=== PATIENT | female | born 1990 | race Caucasian/White ===

== ENCOUNTER 2017-08-11 06:15 | Inpatient (IN) | payer OTHER ==
[2017-08-09 18:00] VITALS: BMI 38.3
[2017-08-11 06:40] LABS: MCH 30.1 pg (25.7-33.7); MCHC 34.1 g/dl (32.0-36.0); MEAN CELL VOLUME 88.3 fl (80-96); PLATELET COUNT 266 K/MM3 (134-434); RDW 12.7 % (11.6-15.6); WHITE BLOOD COUNT 6.6 K/mm3 (4.0-10.0)
[2017-08-11 07:02] LABS: ANION GAP 6 (8-16); CALCIUM 7.9 mg/dL (8.5-10.1); CO2 27 mmol/L (21-32); CREATININE 0.8 mg/dL (0.55-1.02); GLUCOSE,RANDOM 109 mg/dL (74-106)
[2017-08-11] MEDS ORDERED: ePHEDrine SULFATE 50 MG/1 ML AMPULE ONE (07:14)
[2017-08-11] MEDS ORDERED: fentaNYL CITRATE 250 MCG/5 ML VIAL ONE (07:14)
[2017-08-11] MEDS ORDERED: SUCCINYLCHOLINE CHLORIDE 200 MG/10 ML VIAL ONE (07:15)
[2017-08-11] MEDS ORDERED: PROPOFOL 20 ML ONE ×4 (07:15)
[2017-08-11] MEDS ORDERED: ROCURONIUM BROMIDE 50 MG/5 ML VIAL ONE ×2 (07:15)
[2017-08-11] MEDS ORDERED: MIDAZOLAM HCL 2 MG/2 ML SINGLE DOSE VIAL ONE (07:15)
[2017-08-11 07:26] LABS: INR 1.23 (0.82-1.09); PROTHROMBIN TIME (PATIENT) 13.9 SEC (9.98-11.88)
[2017-08-11 07:29] LABS: ACTIVATED PTT 29.8 SECONDS (26.9-34.4)
--- NOTE | 2017-08-11 08:26 | HP ---
History & Physical Update - History History: No Change - Physical Physical: No Change - Assessment Assessment: No Change - Plan Plan: No Change Currently as noted:: Laparoscopic vertical sleeve gastrectomy for morbid obesity
[2017-08-11] MEDS ORDERED: ceFAZolin SODIUM 1 GM VIAL IVPB ONE (08:45)
[2017-08-11] MEDS ORDERED: BUPIVACAINE HCL/PF 0.5% (5MG/ML) 10 ML VIAL IJ ONE (09:50)
[2017-08-11] MEDS: HYDROmorphone HCL CARPU-JECT 1 MG/1 ML DISP.SYRIN IVPUSH PRN ×4 (10:03→12:15)
[2017-08-11] MEDS ORDERED: HYDROmorphone HCL CARPU-JECT 1 MG/1 ML DISP.SYRIN IVPB PRN (10:05)
--- NOTE | 2017-08-11 10:05 | OP ---
Operative Note - Note: Operative Date: 08/11/17 Pre-Operative Diagnosis: Morbid obesity Operation: Laparoscopic vertical sleeve gastrectomy, wedge liver biopsy, EGD Post-Operative Diagnosis: Other (Morbid obesity, hepatomegaly) Surgeon: Prince Walker Financial Representative: Inocencio Perez Anesthesia: General Specimens Removed: Greater curvature of stomach, left lobe wedge liver biopsy Estimated Blood Loss (mls): 30 Drains & Tubes with Location: 36 Fr Bougie Operative Report Dictated: Yes
[2017-08-11] MEDS ORDERED: HYDROmorphone HCL CARPU-JECT 2 MG/1 ML DISP.SYRIN ONE ×2 (10:17→11:21)
[2017-08-11] MEDS ORDERED: ACETAMINOPHEN INJECTION 100 ML IVPB ONE (10:18)
[2017-08-11] MEDS: METOCLOPRAMIDE HCL INJECTION 10 MG/2 ML VIAL IVPUSH SCH ×4 (10:25→21:27)
--- NOTE | 2017-08-11 10:42 | SPEC ---
DATE OF OPERATION: 08/11/2017 SURGEON: Prince Walker MD MANAGER BUSINESS PROCESS: Inocencio Perez MD PREOPERATIVE DIAGNOSIS: Morbid obesity. POSTOPERATIVE DIAGNOSES: Morbid obesity, hepatomegaly. PROCEDURE: Laparoscopic vertical sleeve gastrectomy, laparoscopic wedge liver biopsy of the liver, and upper endoscopy/esophagogastroduodenoscopy. SPECIMEN: Greater curvature of the stomach and left lobe wedge liver biopsy. ESTIMATED BLOOD LOSS: 30 mL DRAINS: None. BOUGIE: 36-Divehi bougie. ANESTHESIA: GET. REASON FOR PROCEDURE: This is a 27-year-old female who presented to the office for weight loss options. After describing different options, she decided to proceed with a laparoscopic, possible open vertical sleeve gastrectomy. RISKS AND BENEFITS: After describing the different options for weight loss management, the patient decided to proceed with a laparoscopic, possible open vertical sleeve gastrectomy. The patient was seen by the respective subspecialties and cleared for surgery. The risks and benefits of the procedure were explained. These included bleeding, infection, hernia, [place], DVT, PE, injury to surrounding structures including the liver, colon, bowel, spleen, esophagus, vessel injury, nerve injury, weight regain, gastric leak, staple line leak, sleeve leak, obstruction, vitamin deficiency, hair loss and as some of the possible complications. The patient understood and signed informed consent. DESCRIPTION OF PROCEDURE: The patient was placed supine on the operating room table. The patient underwent general endotracheal intubation. A Bueno catheter was inserted. The arms were brought out at 90 degrees and secured. A footboard was placed and the legs were secured laterally with padding. The abdomen was prepped and draped in the usual sterile fashion. A timeout was performed. An incision was made in the left upper quadrant and a Veress needle inserted. Pneumoperitoneum was established. Subsequently, the Veress needle was removed and a 12-mm trocar was placed. The laparoscopic camera was then inserted and inspection of the abdominal cavity was performed. An incision was then made in the supraumbilical area and a 15-mm trocar was placed under direct visualization. A 5-mm trocar was then placed in the right upper quadrant and a 5-mm trocar was placed below the left subcostal margin. A stab wound was made in the subxiphoid area and a Rafia clamp inserted and removed to dilate the tract. A Jovanna liver retractor was inserted. The post was secured at the bedside by the nursing staff. The patient was placed in steep reverse Trendelenburg position and the Jovanna liver retractor was used to secure the liver towards the anterior abdominal wall. The pylorus was identified and 6 cm proximal to it, the lesser sac was entered using the LigaSure device. All lateral attachments to the greater curvature of the stomach, including the short gastric vessels, were ligated using the LigaSure device toward the gastrosplenic and gastrophrenic ligaments. Once this was done in its entirety, it was confirmed that all tubes within the nasal or oropharyngeal cavity, including a temperature probe, was removed by Anesthesia. The bougie was then inserted by Anesthesia. Transection of the stomach was then begun staying adjacent to the bougie but away from the angularis. Transection of the stomach was performed near the portion of the stomach where the lesser sac was entered. Two laparoscopic Endo-GOSIA black anila were used at this location. Laparoscopic Endo GOSIA purple staple loads were then used for the remainder of the transection until the greater curvature of the stomach was fully transected. This was done staying close to the bougie. Care was taken to stay away from the angle of His cephalad. The staple line was then inspected. Hemostasis was identified. A leak test was then performed. It was clamped distally to the staple line. Irrigation solution was placed in the left upper quadrant and air was insufflated by Anesthesia into the sleeve. No leaks were identified. No obstruction was identified. This was done through the entirety of the staple line. At this point, the irrigation solution was suctioned and again, hemostasis was noted. A wedge liver biopsy was then performed. The left lobe of the liver was identified and a portion of the edge was grasped. Using electrocautery, a wedge of the liver was excised. This was removed and sent off the field as specimen. Hemostasis at the site of the wedge liver biopsy was attained using electrocautery. The 15-mm supraumbilical trocar was then removed and the greater curvature specimen removed from the site using a sponge stick tang. The specimen was inspected and a Veress needle inserted. The specimen insufflated adequately and no leak was identified. The staple line was noted to be intact. A Chris-Linnette device was then used to temporarily close the fascia with a 0 Vicryl suture at the site. The 15-mm trocar was then reinserted and the 12-mm trocar in the left upper quadrant was removed. The fascia at this site was then closed using the Chris-Linnette device with a 0 Vicryl suture. Again, hemostasis was noted. The Jovanna liver retractor was then removed under direct visualization. Pneumoperitoneum was desufflated and the fascial sutures were secured. Hemostasis was noted at all incision sites and Marcaine was injected at all incision sites. All incision sites were closed using 4-0 Biosyn. Sterile dressings were applied. The patient tolerated the procedure well and was transferred to the recovery room in stable condition with the Bueno catheter intact. The patient was transferred to telemetry for further monitoring. In addition, during the case, an upper endoscopy was performed to further evaluate for leak and/or obstruction. The endoscope was inserted, and the entirety of the esophagus, GE junction, and gastric sleeve pouch was inspected. No leak or obstruction was noted. The stomach was suctioned and the endoscope removed fully intact. The patient tolerated the procedure well, transferred to recovery room in stable condition. Wilmer [id number]
[2017-08-11] MEDS: ACETAMINOPHEN 1000 MG/100 ML VIAL (NON FORMULARY) IVPB SCH ×3 (10:45→22:57)
[2017-08-11] MEDS ORDERED: PROMETHAZINE HCL 25 MG/1 ML VIAL ONE (10:58)
[2017-08-11 11:18] LABS: MCHC 32.8 g/dl (32.0-36.0); MEAN CELL VOLUME 88.6 fl (80-96); MEAN PLT VOLUME 8.8 fl (7.5-11.1); PLATELET COUNT 230 K/MM3 (134-434); RDW 12.6 % (11.6-15.6); WHITE BLOOD COUNT 11.6 K/mm3 (4.0-10.0)
[2017-08-11] MEDS ORDERED: ONDANSETRON 4 MG/2 ML VIAL IVPUSH PRN (11:27)
[2017-08-11] MEDS ORDERED: PROMETHAZINE HCL 25 MG/1 ML VIAL IVPUSH PRN (11:27)
[2017-08-11] MEDS: ONDANSETRON 4 MG/2 ML VIAL IVPUSH SCH ×4 (11:30→21:27)
[2017-08-11 11:56] LABS: ALBUMIN 3.8 g/dl (3.4-5.0); ANION GAP 6 (8-16); CALCIUM 7.9 mg/dL (8.5-10.1); CO2 24 mmol/L (21-32); CREATININE 0.8 mg/dL (0.55-1.02); GLUCOSE,RANDOM 170 mg/dL (74-106); SGOT/AST 28 U/L (15-37); SGPT/ALT 41 U/L (12-78)
[2017-08-11 11:57] LABS: ALK PHOS 56 U/L (45-117); BILIRUBIN,TOTAL 0.8 mg/dL (0.2-1.0); TOT PROT 6.9 g/dl (6.4-8.2)
[2017-08-11] MEDS: SODIUM CHLORIDE 1,000 ML IV SCH ×2 (13:00→15:16)
[2017-08-11] MEDS ORDERED: LORazepam 2 MG/ML SDV VIAL IVPUSH PRN (14:33)
[2017-08-11] MEDS: HYDROmorphone HCL CARPU-JECT 2 MG/1 ML DISP.SYRIN IVPB PRN (16:12)
[2017-08-11] MEDS: LACTATED RINGERS SOLUTION 1,000 ML IV SCH (16:39)
[2017-08-11] MEDS ORDERED: PT OWN MED DRAWER 7, Y5N ONE (21:22)
[2017-08-11] MEDS: ENOXAPARIN NA (PORCINE) 40 MG/0.4 ML DISP.SYRIN SQ SCH (21:27)
[2017-08-11] MEDS: FAMOTIDINE 20 MG/50 ML IVPB 20 MG/50 ML MG IVPB SCH (21:27)
[2017-08-12] MEDS: ONDANSETRON 4 MG/2 ML VIAL IVPUSH SCH ×6 (02:15→21:22)
[2017-08-12] MEDS: HYDROmorphone HCL CARPU-JECT 2 MG/1 ML DISP.SYRIN IVPB PRN ×2 (02:15→06:43)
[2017-08-12] MEDS: METOCLOPRAMIDE HCL INJECTION 10 MG/2 ML VIAL IVPUSH SCH ×4 (02:15→20:36)
[2017-08-12] MEDS: SODIUM CHLORIDE 1,000 ML IV SCH ×3 (02:23→09:25)
[2017-08-12] MEDS: ACETAMINOPHEN 1000 MG/100 ML VIAL (NON FORMULARY) IVPB SCH (05:06)
[2017-08-12 07:11] LABS: MCH 29.4 pg (25.7-33.7); MCHC 33.1 g/dl (32.0-36.0); MEAN CELL VOLUME 88.8 fl (80-96); MEAN PLT VOLUME 8.1 fl (7.5-11.1); PLATELET COUNT 220 K/MM3 (134-434); RDW 12.5 % (11.6-15.6); WHITE BLOOD COUNT 11.2 K/mm3 (4.0-10.0)
[2017-08-12 07:45] LABS: ANION GAP 4 (8-16); CALCIUM 7.3 mg/dL (8.5-10.1); CO2 27 mmol/L (21-32)
[2017-08-12 07:51] LABS: ALK PHOS 49 U/L (45-117); BILIRUBIN,TOTAL 0.7 mg/dL (0.2-1.0); CREATININE 0.6 mg/dL (0.55-1.02); GLUCOSE,RANDOM 91 mg/dL (74-106); SGOT/AST 30 U/L (15-37); SGPT/ALT 46 U/L (12-78); TOT PROT 5.9 g/dl (6.4-8.2)
[2017-08-12] MEDS ORDERED: ACETAMINOPHEN 325 MG TABLET (FP) PO PRN (08:58)
--- NOTE | 2017-08-12 09:12 | PN ---
Progress Note (short form) - Note Progress Note: POD 1 Pain controlled No nausea Vital Signs Period Temp Pulse Resp BP Sys/Nguyễn Pulse Ox Last 24 Hr 97.7 F-98.5 F 93-116 10-20 117-161/70-103 98-100 Abd soft CBC, BMP 08/12/17 07:00 08/12/17 07:00 UGI: no leak/obstruction Clears OOB
--- NOTE | 2017-08-12 09:13 | DS ---
Physical Examination Vital Signs: Vital Signs Temperature 98.5 F 08/12/17 07:01 Pulse Rate 97 H 08/12/17 07:01 Respiratory Rate 20 08/12/17 07:01 Blood Pressure 133/78 08/12/17 07:01 O2 Sat by Pulse Oximetry (%) 100 08/11/17 15:10 Constitutional: Yes: Calm HENT: Yes: WNL Neck: Yes: Supple Cardiovascular: Yes: Regular Rate and Rhythm Respiratory: Yes: CTA Bilaterally Gastrointestinal: Yes: Soft Wound/Incision: Yes: Dressing Dry and Intact Neurological: Yes: Alert, Oriented Labs: CBC, BMP 08/12/17 07:00 08/12/17 07:00 Discharge Summary Reason For Visit: MORBID OBESITY Current Active Problems Hepatomegaly (Acute) Morbid (severe) obesity due to excess calories (Acute) Procedures: Principal: Vertcal sleeve gastrectomy, wedge liver biopsy, EGD Condition: Stable - Instructions Diet, Activity, Other Instructions: [address] [place] [address] Prince Walker M.D. [address] [place] [address], [address] [facility] [address] [facility] [place] [address] Robotic, Bariatric and General Surgery Postoperative Instructions for Bariatric Surgery Activity: Resume normal everyday activity as tolerated. You may walk and climb stairs without any limitation. We encourage you to walk as often as you can Do not lift anything more than 10 pounds for 8 weeks. At that time, you can return to full activity, including the gym, without limitation. Do not drive a motor vehicle while taking prescribes narcotic pain medication. Wound Care: If you have a bandage in place, leave it on for 3 days. At that time you may remove the outer bandage. If there are strips of tape on the skin after removing the outer bandage, leave them in place. They will fall off by themselves. Do not remove them. If there is clear glue on the skin after removing the outer bandage, leave it in place. Do not pick at it or peel it off. You may shower after taking the outer bandage off, 3 days after your surgery. If incisions become red, warm or open, please call the office. Diet: Continue a sugar-free, non-carbonated Clear liquid diet three times a day for the first week-Stage I diet. In addition, you should drink 8 ounces of water every hour. When drinking, sips should be slow and steady, not large and quick. After the first week, call the office to be advanced to the next dietary stage. Do not advance stages until instructed. Your diet will be advanced over the phone each week. Medications/Pain Management: You may resume previous medications unless told otherwise. The pills may be swallowed whole or broken if scored. You may take the prescribed narcotic pain medication as needed. If the narcotic medication is not needed for pain control, you may take Tylenol. Avoid all other pain medications including Advil, Ibuprofen, Motrin, Aspirin, Naprosyn, Aleve, Celebrex. You will receive Pepcid. Please take this twice a day as prescribed. Dizziness,Headaches/Gas Pain: Make sure you are getting enough fluids daily. Patients on diuretics or water pills may need medication adjusted. Some fluids such as broth or Gatorade may help. Gas pains are common in the first few weeks after surgery. At times they can be worse than surgical pain. Walking can help. You can also use Mylanta, Maalox, or Gas-X. Vomiting/Nausea: This may occur if you eat too fast, don't chew, or eat too much. Go back to fluids. If the vomiting or nausea persists, call the office. Constipation/Diarrhea: You may experience a change in bowel habits. Many things affect this, including a decrease in food intake, not enough fluid and taking pain medication. Some people experience diarrhea after the barium swallow in x-ray. If either persist, call the office. Follow up: Call the office at [phone] for an appointment 2 weeks after your surgical procedure. Disposition: HOME - Home Medications Comprehensive Discharge Medication List: Ambulatory Orders Metoprolol Tartrate [Lopressor -] 50 mg PO DAILY 06/23/16 Cyclobenzaprine HCl [Flexeril -] 10 mg PO BID 08/09/17 Losartan Potassium [Cozaar -] 50 mg PO DAILY 08/09/17 Famotidine [Pepcid] 20 mg PO BID #60 tablet 08/11/17 Oxycodone HCl/Acetaminophen [Percocet 5-325 mg Tablet] 1 - 2 tab PO Q6H #28 tab MDD 4 08/11/17
[2017-08-12] MEDS: ENOXAPARIN NA (PORCINE) 40 MG/0.4 ML DISP.SYRIN SQ SCH ×2 (09:24→21:22)
[2017-08-12] MEDS: FAMOTIDINE 20 MG/50 ML IVPB 20 MG/50 ML MG IVPB SCH ×2 (09:25→21:22)
--- NOTE | 2017-08-12 10:58 | PN ---
Progress Note, Physician Chief Complaint: Pt. pain controlled, no GA complaints. - Current Medication List Current Medications: Active Medications Acetaminophen (Tylenol -) 325 mg PO Q4H PRN PRN Reason: FEVER OR PAIN Enoxaparin Sodium (Lovenox -) 40 mg SQ BID DESTINY Last Admin: 08/12/17 09:24 Dose: 40 mg Hydromorphone HCl (Dilaudid Injection -) 1 mg IVPB Q3H PRN PRN Reason: PAIN Last Admin: 08/12/17 06:43 Dose: 1 mg Famotidine/Sodium Chloride (Pepcid 20 Mg Premixed Ivpb -) 20 mg in 50 mls @ 100 mls/hr IVPB BID DESTINY Last Admin: 08/12/17 09:25 Dose: 100 mls/hr Sodium Chloride (Normal Saline -) 1,000 mls @ 150 mls/hr IV ASDIR DESTINY Last Admin: 08/12/17 05:10 Dose: 150 mls/hr Lactated Ringer's (Lactated Ringers Solution) 1,000 mls @ 125 mls/hr IV ASDIR [facility] Last Admin: 08/11/17 16:39 Dose: Not Given Sodium Chloride (Normal Saline -) 1,000 mls @ 75 mls/hr IV ASDIR [facility] Last Admin: 08/12/17 09:25 Dose: 75 mls/hr Lorazepam (Ativan Injection -) 0.5 mg IVPUSH Q30M PRN Last Admin: 08/11/17 12:48 Dose: 0.5 mg Metoclopramide HCl (Reglan Injection -) 10 mg IVPUSH Q6H-IV DESTINY Last Admin: 08/12/17 09:24 Dose: 10 mg Ondansetron HCl (Zofran Injection) 4 mg IVPUSH Q4H-IV DESTINY Last Admin: 08/12/17 09:24 Dose: 4 mg Ondansetron HCl (Zofran Injection) 4 mg IVPUSH Q6H PRN PRN Reason: NAUSEA AND/OR VOMITING Oxycodone HCl (Roxicodone -) 5 mg PO Q4H PRN PRN Reason: PAIN Promethazine HCl (Phenergan Injection -) 12.5 mg IVPUSH Q6H PRN PRN Reason: NAUSEA-FOR RESCUE AFTER 15 MIN Last Admin: 08/11/17 10:40 Dose: 12.5 mg - Objective Vital Signs: Vital Signs Temperature 98.5 F 08/12/17 07:01 Pulse Rate 97 H 08/12/17 07:01 Respiratory Rate 20 08/12/17 07:01 Blood Pressure 133/78 08/12/17 07:01 O2 Sat by Pulse Oximetry (%) 100 08/11/17 15:10 Constitutional: Yes: Well Nourished, No Distress, Calm Musculoskeletal: Yes: WNL Neurological: Yes: WNL, Alert, Oriented Labs: CBC, BMP 08/12/17 07:00 08/12/17 07:00 INR, PTT INR 1.23 (0.82-1.09) H 08/11/17 06:29 Assessment/Plan POD#1 s/p laparoscopic gastric sleeve under GA. Doing well. D/C from anesthesia care.
[2017-08-12] MEDS: oxyCODONE HCL 5 MG TABLET PO PRN ×2 (14:18→20:34)
[2017-08-12] MEDS: LACTATED RINGERS SOLUTION 1,000 ML IV SCH (14:19)
--- NOTE | 2017-08-12 15:25 | PATH ---
Surgical Pathology Report Patient Name: LINDSEY BLANCAS [facility]. Rec. #: [id number] /Age/Gender: 1990 (Age: 27) / F Account: [id number] Location: 4 SO PEDS/ADOL Taken: 08/11/2017 Received: 08/11/2017 Reported: 08/12/2017 Physicians: Prince Walker M.D. Specimen(s) Received A: GREATER CURVATURE OF STOMACH B: LIVER BIOPSY Clinical History Morbid obesity Final Diagnosis A. STOMACH, GREATER CURVATURE, SLEEVE GASTRECTOMY: PORTION OF GASTRIC FUNDUS WITH NO PATHOLOGIC CHANGES. IMMUNOSTAIN FOR H. PYLORI IS NEGATIVE. B. LIVER, WEDGE BIOPSY: MILD MACROVESICULAR STEATOSIS WITH MILD NONSPECIFIC PORTAL CHRONIC INFLAMMATION. TRICHROME STAIN REVEALS MILD PORTAL FIBROSIS. IRON STAIN SHOWS NO IRON DEPOSITION. Comment: Recommend correlation with clinical findings and follow up as clinically indicated. Electronically Signed Liang Zuluaga M.D. Gross Description A. Received in formalin, labeled "greater curvature of stomach," is a 104 gram, 15.5 x 4.0 x 2.3 cm. portion of stomach with a stapled margin of resection. The serosa is aguirre-navas with minimal attached fat. The mucosa is aguirre-pink with normal folds. No mucosal masses are identified. Major General sections are submitted in one cassette. B. Received in formalin labeled "liver biopsy," is a 3.5 x 1.4 x 0.6 cm aguirre-brown, irregular portion of soft tissue consistent with a liver biopsy. The specimen is sectioned and entirely submitted in 2 cassettes. 08/11/201708/11/2017
[2017-08-13] MEDS: oxyCODONE HCL 5 MG TABLET PO PRN ×2 (00:49→08:54)
[2017-08-13] MEDS: ONDANSETRON 4 MG/2 ML VIAL IVPUSH SCH ×3 (00:59→10:36)
[2017-08-13] MEDS: METOCLOPRAMIDE HCL INJECTION 10 MG/2 ML VIAL IVPUSH SCH ×2 (02:37→08:54)
[2017-08-13 08:42] VITALS: BP 137/71; PULSE 88; TEMP 98.5
[2017-08-13] MEDS: ENOXAPARIN NA (PORCINE) 40 MG/0.4 ML DISP.SYRIN SQ SCH (09:05)
[2017-08-13] MEDS: SODIUM CHLORIDE 1,000 ML IV SCH (10:36)
[2017-08-13] MEDS: FAMOTIDINE 20 MG/50 ML IVPB 20 MG/50 ML MG IVPB SCH (10:36)
== END 2017-08-13 10:08 | disposition home or self-care (01) | DRG 403 ==
LOC: JSAMEDAYSX 06:15 → EDSTATUS 09:00 → J4S 15:29
PROVIDERS: ADMIT Surgery; ATTEND Surgery
PROC: 0DJ08ZZ Inspection of Upper Intestinal Tract, Via Natural or Artificial Opening Endoscopic (ICD-10-PCS; 2017-08-11)
PROC: 0DB64Z3 Excision of Stomach, Percutaneous Endoscopic Approach, Vertical (ICD-10-PCS; principal; 2017-08-11 08:00)
PROC: 0FB24ZX Excision of Left Lobe Liver, Percutaneous Endoscopic Approach, Diagnostic (ICD-10-PCS; 2017-08-11 08:00)
DX: E66.01 Morbid (severe) obesity due to excess calories (principal); Z68.39 Body mass index [BMI] 39.0-39.9, adult; R16.0 Hepatomegaly, not elsewhere classified
CPT/HCPCS: 36415; 74241-TC; 80048; 80053; 84703; 85027; 85610; 85730; 86850; 86900; 86901; 88305-TC; 88307-TC; 94010; 94760

== ENCOUNTER 2017-09-02 11:46 | Inpatient (IN) | payer OTHER ==
[2017-09-02 11:55] VITALS: BMI 32.3
[2017-09-02] MEDS ORDERED: ONDANSETRON 4 MG/2 ML VIAL IVPB ONE (13:59)
[2017-09-02] MEDS ORDERED: SODIUM CHLORIDE 1,000 ML IV STA ×2 (13:59→16:05)
[2017-09-02] MEDS ORDERED: ACETAMINOPHEN 1000 MG/100 ML VIAL (NON FORMULARY) IVPB ONE (13:59)
--- NOTE | 2017-09-02 14:10 | PDOC ---
History of Present Illness - General Chief Complaint: Nausea/Vomiting Stated Complaint: DEHYDRATED (POST-SURG) Time Seen by Provider: 09/02/17 13:24 History Source: Patient - History of Present Illness Initial Comments: 09/02/17 14:04 Pt is a 27 F with PMH HTN s/p sleeve gastrectomy on Aug 11 who presents to ED with abdominal pain. Pt states any PO intake gives her severe abdominal pain. She states that everything she has tried eating including apple sauce, solid food, and even water give her pain. She states that since Tue she has had constant severe pain. She states that she has had very little to eat/drink for the last week. She also complains of headache, weakness, one episode of black diarrhea yesterday, and dark urine. Additionally, she has an itching rash on her back which appeared suddenly last night. Pt denies fever, chest pain, shortness of breath, palpitations. Of note, pt had an appointment with her surgeon, Dr. Walker this afternoon. Pt states there were no interventions performed this afternoon. Past History - Past Medical History Allergies/Adverse Reactions: Allergies Allergy/AdvReac Type Severity Reaction Status Date / Time No Known Allergies Allergy Verified 09/02/17 11:48 Home Medications: Ambulatory Orders Metoprolol Tartrate [Lopressor -] 50 mg PO DAILY 06/23/16 Cyclobenzaprine HCl [Flexeril -] 10 mg PO BID 08/09/17 Losartan Potassium [Cozaar -] 50 mg PO DAILY 08/09/17 Famotidine [Pepcid] 20 mg PO BID #60 tablet 08/11/17 Oxycodone HCl/Acetaminophen [Percocet 5-325 mg Tablet] 1 - 2 tab PO Q6H #28 tab MDD 4 08/11/17 Anemia: No Asthma: No Cancer: No Cardiac Disorders: Yes (SVT) CVA: No COPD: No CHF: No Dementia: No Diabetes: No GI Disorders: No Disorders: No HTN: No Hypercholesterolemia: No Liver Disease: No Seizures: No Thyroid Disease: No - Surgical History GI Surgery: Yes (gastric sleeve) - Immunization History Immunization Up to Date: No - Suicide/Smoking/Psychosocial Hx Smoking History: Former smoker Have you smoked in the past 12 months: No If you are a former smoker, when did you quit?: 2016 Information on smoking cessation initiated: No Hx Alcohol Use: No Drug/Substance Use Hx: No Substance Use Type: Marijuana Hx Substance Use Treatment: No Review of Systems - Review of Systems Able to Perform ROS?: Yes Is the patient limited [place] proficient: No Constitutional: Yes: Symptoms Reported, See HPI, Chills. No: Diaphoresis, Fever , Loss of Appetite HEENTM: Yes: Symptoms Reported, See HPI. No: Double Vision Respiratory: Yes: Symptoms reported, See HPI. No: Shortness of Breath Cardiac (ROS): Yes: Symptoms Reported. No: Chest Pain, Palpitations ABD/GI: Yes: Symptoms Reported, Diarrhea (1 episode black diarrhea), Nausea, Indigestion. No: Abdominal Distended, Abd. Pain w/ defecation, Rectal Bleeding , Vomiting : Yes: Symptoms Reported, Other (dark urine). No: Burning, Dysuria, Frequency , Hematuria Musculoskeletal: Yes: Symptoms Reported. No: Back Pain, Joint Pain, Joint Stiffness Integumentary: Yes: Symptoms Reported, Erythema, Pruritus, Rash (pruritic palpable rash on b/l mid back) *Physical Exam - Vital Signs Last Vital Signs Temp Pulse Resp BP Pulse Ox 98 F 122 H 20 133/84 100 09/02/17 11:48 09/02/17 11:48 09/02/17 11:48 09/02/17 11:48 09/02/17 11:48 - Physical Exam General Appearance: Yes: Nourished, Appropriately Dressed. No: Apparent Distress HEENT: positive: EOMI, PRIYA, Hearing Grossly Normal. negative: Normal ENT Inspection (dry), Pale Conjunctivae, Pharyngeal Erythema, Tonsillar Exudate, Tonsillar Erythema, Rhinorrhea Neck: positive: Trachea midline, Supple Respiratory/Chest: positive: Lungs Clear, Normal Breath Sounds. negative: Respiratory Distress, Accessory Muscle Use, Labored Respiration Cardiovascular: positive: Regular Rhythm, Regular Rate, S1, S2 Vascular Pulses: Dorsalis-Pedis (R): 2+, Doralis-Pedis (L): 2+ Musculoskeletal: positive: Normal Inspection. negative: CVA Tenderness Extremity: positive: Normal Capillary Refill, Normal Inspection. negative: Tender Integumentary: positive: Rash Neurologic: positive: Fully Oriented, Alert, Normal Mood/Affect, Motor Strength 5/5 ED Treatment Course - LABORATORY CBC & Chemistry Diagram: 09/02/17 14:20 09/02/17 14:20 Medical Decision Making - Medical Decision Making 09/02/17 14:19 Pt is a 27 F w/ PMH HTN s/p sleeve gastrectomy on Aug 11 who presents to ED with decreased PO intake, severe abdominal pain related to PO intake, black diarrhea x1 episode, dark urine, and new rash on her back. #r/o GI bleed/surgical complication vs intraabdominal process -preg test -abd CT -Coag -FOBT -EKG -UA, UCx -CXR -IV tylenol -NS 09/02/17 18:26 Pt to be admitted. *DC/Admit/Observation/Transfer Diagnosis at time of Disposition: Portal vein thrombosis Pancreatitis Qualifiers: Chronicity: acute Pancreatitis type: other Acute pancreatitis complication: no infection or necrosis Qualified Code(s): K85.80 - Other acute pancreatitis without necrosis or infection - Discharge Dispostion Admit: Yes - Referrals Referrals: Liang Parish [Primary Care Provider] - - Patient Instructions - Post Discharge Activity
[2017-09-02] MEDS ORDERED: ACETAMINOPHEN INJECTION 100 ML IVPB ONE (14:17)
[2017-09-02] MEDS ORDERED: ONDANSETRON 4 MG/2 ML VIAL ONE (14:17)
[2017-09-02 14:36] LABS: BASO % 0.9 % (0-2.0); EOS % 0.2 % (0-4.5); HEMOGLOBIN 14.6 GM/dL (10.7-15.3); LYMPH % 34.4 % (8-40); MCH 28.5 pg (25.7-33.7); MCHC 31.9 g/dl (32.0-36.0); MEAN CELL VOLUME 89.4 fl (80-96); MEAN PLT VOLUME 10.9 fl (7.5-11.1); MONO % 11.7 % (3.8-10.2); NEUT % 52.8 % (42.8-82.8); PLATELET COUNT 214 K/MM3 (134-434); RBC 5.14 M/mm3 (3.60-5.2); RDW 13.3 % (11.6-15.6); WHITE BLOOD COUNT 5.7 K/mm3 (4.0-10.0)
[2017-09-02 14:51] LABS: URINE APPEARANCE SLCLOUDY; URINE BILIRUBIN NEGATIVE (NEGATIVE); URINE BLOOD 1+ (NEGATIVE); URINE COLOR DKYELLOW; URINE GLUCOSE (UA) NEGATIVE (NEGATIVE); URINE KETONE 2+ (NEGATIVE); URINE NITRITE NEGATIVE (NEGATIVE)
[2017-09-02 14:54] LABS: URINE LEUK ESTERASE 2+ (NEGATIVE); URINE PROTEIN 2+ (NEGATIVE)
[2017-09-02 14:55] LABS: ALBUMIN 4.5 g/dl (3.4-5.0); ALK PHOS 62 U/L (45-117); ANION GAP 16 (8-16); BILIRUBIN,TOTAL 0.9 mg/dL (0.2-1.0); BLOOD UREA NITROGEN 8 mg/dL (7-18); CALCIUM 9.4 mg/dL (8.5-10.1); CHLORIDE 102 mmol/L (98-107); CO2 22 mmol/L (21-32); GLUCOSE,RANDOM 93 mg/dL (74-106); POTASSIUM 4.2 mmol/L (3.5-5.1); SGOT/AST 61 U/L (15-37); SGPT/ALT 78 U/L (12-78); SODIUM 140 mmol/L (136-145); TOT PROT 8.3 g/dl (6.4-8.2)
[2017-09-02 15:36] LABS: INR 1.38 (0.82-1.09); PROTHROMBIN TIME (PATIENT) 15.6 SEC (9.98-11.88)
--- NOTE | 2017-09-02 16:44 | PDOC ---
Attending Attestation - Resident Resident Name: Angel Malhotra - ED Attending Attestation I have performed the following: I have examined & evaluated the patient, The case was reviewed & discussed with the resident, I agree w/resident's findings & plan, Exceptions are as noted - HPI HPI: 09/02/17 16:41 27 F w/ HTN, recent sleeve gastrectomy Aug 11, presenting to ER with abdominal pain. She states that every time she eats, she has severe epigastric pain. It is associated with nausea and occasional vomiting. She endorses one episode of diarrhea that was dark yesterday. ALso notes dark urine. Pt states that she has been unable to tolerate any PO 2/2 abdominal pain. - Physicial Exam PE: 09/02/17 16:48 "GENERAL: Awake, alert, and fully oriented, in no acute distress HEAD: No signs of trauma EYES: PERRLA, EOMI, sclera anicteric, conjunctiva clear ENT: Auricles normal inspection, hearing grossly normal, nares patent, oropharynx clear without exudates. Moist mucosa NECK: Nontender, no stepoffs, Normal ROM, supple, no lymphadenopathy, JVD, or masses LUNGS: Breath sounds equal, clear to auscultation bilaterally. No wheezes, and no crackles HEART: Regular rate and rhythm, normal S1 and S2, no murmurs, rubs or gallops ABDOMEN: soft, + epigastric tenderness, no rebound/guarding EXTREMITIES: Normal range of motion, no edema. No clubbing or cyanosis. No cords, erythema, or tenderness NEUROLOGICAL: Cranial nerves II through XII intact. 5/5 strength and sensation in all extremities, Normal speech, normal gait SKIN: Warm, Dry, normal turgor, no rashes or lesions noted. " - Medical Decision Making 09/02/17 16:49 27 F with recent sleeve gastrectomy presenting with epigastric pain and N/V. - Labs, lipase - CTAP - IVF, pain control 09/02/17 16:50 CTAP shows portal vein thrombosis. Lipase elevated to 600, consistent with pancreatitis. Pt given lovenox 100mg SQ. Made NPO, given IVF and analgesia for pancreatitis. Pt to be admitted to hospital. Case discussed in detail with admitting physician including history, physical exam and ancillary studies. Admitting physician has assumed care for the patient and will follow all pending diagnostics and complete the evaluation and treatment.
[2017-09-02] MEDS ORDERED: ENOXAPARIN NA (PORCINE) 100 MG/1 ML DISP.SYRIN SQ ONE ×2 (16:47→16:55)
[2017-09-02 18:24] LABS: EPI CELLS RARE /HPF (FEW); URINE MUCUS RARE
--- NOTE | 2017-09-02 19:11 | HP ---
Admitting History and Physical - Primary Care Physician PCP: Liang Parish - Admission Chief Complaint: abdominal pain History of Present Illness: HPI: This is a 27 year old female with hx of HTN and gastric sleeve 08/11, presented to the ED with worsening epigastric tenderness. The symptoms started Tuesday she noted they would get worse with any food ingestion. She denies vomiting, but does not dark urine and black diarrhea. In the ED she is thirsty and has continued epigastric tenderness to palpation. She denies chest pain, sob, palpitations, DURANT, dizziness. 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 Home Medications - Allergies Allergies/Adverse Reactions: Allergies Allergy/AdvReac Type Severity Reaction Status Date / Time No Known Allergies Allergy Verified 09/02/17 11:48 - Home Medications Home Medications: Ambulatory Orders Metoprolol Tartrate [Lopressor -] 50 mg PO DAILY 06/23/16 Cyclobenzaprine HCl [Flexeril -] 10 mg PO BID 08/09/17 Losartan Potassium [Cozaar -] 50 mg PO DAILY 08/09/17 Famotidine [Pepcid] 20 mg PO BID #60 tablet 08/11/17 Oxycodone HCl/Acetaminophen [Percocet 5-325 mg Tablet] 1 - 2 tab PO Q6H #28 tab MDD 4 08/11/17 Review of Systems - Review of Systems Constitutional: reports: No Symptoms Eyes: reports: No Symptoms HENT: reports: No Symptoms Neck: reports: No Symptoms Cardiovascular: reports: No Symptoms Respiratory: reports: No Symptoms Gastrointestinal: reports: Abdominal Pain, Vomiting Genitourinary: reports: No Symptoms Musculoskeletal: reports: No Symptoms Integumentary: reports: No Symptoms Neurological: reports: Headache Endocrine: reports: No Symptoms Hematology/Lymphatic: reports: No Symptoms Psychiatric: reports: No Symptoms Physical Examination Vital Signs: Vital Signs Temperature 98 F 09/02/17 11:48 Pulse Rate 122 H 09/02/17 11:48 Respiratory Rate 20 09/02/17 11:48 Blood Pressure 133/84 09/02/17 11:48 O2 Sat by Pulse Oximetry (%) 100 09/02/17 11:48 Constitutional: Yes: No Distress Eyes: Yes: Conjunctiva Clear HENT: Yes: Atraumatic Neck: Yes: Supple Cardiovascular: Yes: Regular Rate and Rhythm, S1, S2 Respiratory: Yes: Regular, CTA Bilaterally Gastrointestinal: Yes: Normal Bowel Sounds, Soft, Abdomen, Obese, Tenderness, Epigastrium (to palpation), Other (x4 incisions CDI w/ dermabond) Renal/: Yes: WNL Musculoskeletal: Yes: WNL Extremities: Yes: WNL Edema: No Wound/Incision: Yes: Clean/Dry, Open to air Neurological: Yes: Alert, Oriented, Cran Nerves II-XII Intact Labs: CBC, BMP 09/02/17 14:20 09/02/17 14:20 Imaging - Results Cat Scan: Report Reviewed (portal vein thrombosis extending to the R and L hepatic lobes w/ minimal flow left lobe +/- hepatitis) Problem List - Problems (1) HTN (hypertension) Code(s): I10 - ESSENTIAL (PRIMARY) HYPERTENSION (2) Pancreatitis Code(s): K85.90 - ACUTE PANCREATITIS WITHOUT NECROSIS OR INFECTION, UNSP Qualifiers: Chronicity: acute Pancreatitis type: other Acute pancreatitis complication: no infection or necrosis Qualified Code(s): K85.80 - Other acute pancreatitis without necrosis or infection (3) Portal vein thrombosis Code(s): I81 - PORTAL VEIN THROMBOSIS Assessment/Plan Assessment: 27 year old female with htn and s.p gastric sleeve admitted with abdominal pain Plan: 1. Portal vein thrombosis - Continue lovenox 100mg BID - Stat xaralto in AM - Heme consult, since cause was iatrogentic question whether pt will need to be on AC for life - Discussed above with Dr. Mendosa, vascular surgery 2. Mild Pancreatitis - Start IVF - NPO - Lipase in AM - Dr shital bustamante 3. HTN - Continue metoprolol, cozaar 4. DVT - On AC Visit type - Emergency Visit Emergency Visit: Yes Care time: The patient presented to the Emergency Department on the above date and was hospitalized for further evaluation of their emergent condition. - New Patient This patient is new to me today: Yes Date on this admission: 09/02/17 - Critical Care Critical Care patient: No
[2017-09-02] MEDS ORDERED: morphine CARPU-JECT 8 MG/1 ML DISP.SYRIN IVPUSH PRN (19:20)
[2017-09-02] MEDS: SODIUM CHLORIDE 1,000 ML IV SCH (19:50)
[2017-09-02] MEDS: CYCLOBENZAPRINE HCL 10 MG TABLET (FP) PO SCH (23:16)
[2017-09-03] MEDS: SODIUM CHLORIDE 1,000 ML IV SCH ×2 (03:05→11:05)
[2017-09-03] MEDS: morphine SULFATE 4 MG/ML VIAL IVPUSH PRN ×3 (04:54→15:12)
[2017-09-03] MEDS: ENOXAPARIN NA (PORCINE) 100 MG/1 ML DISP.SYRIN SQ SCH ×2 (04:54→17:30)
[2017-09-03 07:30] LABS: BASO % 0.6 % (0-2.0); EOS % 1.3 % (0-4.5); HEMOGLOBIN 11.5 GM/dL (10.7-15.3); LYMPH % 57.9 % (8-40); MCH 28.6 pg (25.7-33.7); MEAN CELL VOLUME 89.4 fl (80-96); MEAN PLT VOLUME 10.5 fl (7.5-11.1); NEUT % 30.2 % (42.8-82.8); PLATELET COUNT 136 K/MM3 (134-434); RBC 4.03 M/mm3 (3.60-5.2); RDW 13.6 % (11.6-15.6); WHITE BLOOD COUNT 4.7 K/mm3 (4.0-10.0)
[2017-09-03 08:02] LABS: ALBUMIN 3.1 g/dl (3.4-5.0); ANION GAP 13 (8-16); BLOOD UREA NITROGEN 5 mg/dL (7-18); CHLORIDE 112 mmol/L (98-107); CO2 21 mmol/L (21-32); GLUCOSE,RANDOM 67 mg/dL (74-106); POTASSIUM 3.5 mmol/L (3.5-5.1); SGOT/AST 36 U/L (15-37); SGPT/ALT 51 U/L (12-78); SODIUM 146 mmol/L (136-145)
[2017-09-03 08:05] LABS: ALK PHOS 40 U/L (45-117); BILIRUBIN,TOTAL 0.5 mg/dL (0.2-1.0); CREATININE 0.8 mg/dL (0.55-1.02); TOT PROT 5.4 g/dl (6.4-8.2)
[2017-09-03 08:09] LABS: LIPASE 615 U/L (73-393)
[2017-09-03] MEDS: METOPROLOL TARTRATE 50 MG TABLET (FP) PO SCH (10:51)
[2017-09-03] MEDS: LOSARTAN POTASSIUM 50 MG TABLET (FP) PO SCH (10:51)
[2017-09-03] MEDS: CYCLOBENZAPRINE HCL 10 MG TABLET (FP) PO SCH ×2 (10:51→22:07)
[2017-09-03] MEDS ORDERED: SODIUM CHLORIDE 0.45% 1,000 ML IV SCH (11:45)
--- NOTE | 2017-09-03 14:57 | PN ---
Progress Note, Physician Chief Complaint: THIS IS MY FIRST ENCOUNTER WITH THIS PATIENT RECORDS AND NOTES REVIEWED AWAKE ALERT +DISTRESS ABD PAIN - Current Medication List Current Medications: Active Medications Cyclobenzaprine HCl (Flexeril -) 10 mg PO BID [facility] Last Admin: 09/03/17 10:51 Dose: 10 mg Enoxaparin Sodium (Lovenox -) 100 mg SQ BID@0500,1700 [facility] Last Admin: 09/03/17 04:54 Dose: 100 mg Sodium Chloride (Normal Saline -) 1,000 mls @ 125 mls/hr IV ASDIR [facility] Last Admin: 09/03/17 11:05 Dose: 125 mls/hr Sodium Chloride (1/2 Normal Saline) 1,000 mls @ 125 mls/hr IV ASDIR [facility] Last Admin: 09/03/17 12:16 Dose: 125 mls/hr Losartan Potassium (Cozaar -) 50 mg PO DAILY [facility] Last Admin: 09/03/17 10:51 Dose: 50 mg Metoprolol Tartrate (Lopressor -) 50 mg PO DAILY [facility] Last Admin: 09/03/17 10:51 Dose: 50 mg Morphine Sulfate (Morphine Sulfate) 2 mg IVPUSH Q4H PRN PRN Reason: PAIN Last Admin: 09/03/17 10:51 Dose: 2 mg - Objective Vital Signs: Vital Signs Temperature 97.8 F 09/03/17 10:31 Pulse Rate 90 09/03/17 10:31 Respiratory Rate 20 09/03/17 10:31 Blood Pressure 125/71 09/03/17 10:31 O2 Sat by Pulse Oximetry (%) 100 09/03/17 10:00 Constitutional: Yes: Moderate Distress Eyes: Yes: WNL HENT: Yes: WNL Neck: Yes: WNL Cardiovascular: Yes: WNL Respiratory: Yes: WNL Gastrointestinal: Yes: Tenderness, Vomiting Musculoskeletal: Yes: WNL, Muscle Weakness Edema: No Peripheral Pulses WNL: Yes Integumentary: Yes: WNL Wound/Incision: Yes: Clean/Dry Neurological: Yes: WNL ...Motor Strength: WNL Psychiatric: Yes: WNL Labs: CBC, BMP 09/03/17 07:00 09/03/17 07:00 INR, PTT INR 1.38 (0.82-1.09) H 09/02/17 14:20 Problem List - Problems (1) Pancreatitis Code(s): K85.90 - ACUTE PANCREATITIS WITHOUT NECROSIS OR INFECTION, UNSP Qualifiers: Chronicity: acute Pancreatitis type: other Acute pancreatitis complication: no infection or necrosis Qualified Code(s): K85.80 - Other acute pancreatitis without necrosis or infection (2) Portal vein thrombosis Code(s): I81 - PORTAL VEIN THROMBOSIS Assessment/Plan GI AND SX EVAL ZOFRAN IV IVF NPO PAIN CONTROL AC FOR PORTAL THROMBOSIS
[2017-09-03] MEDS ORDERED: HYDROmorphone HCL CARPU-JECT 1 MG/1 ML DISP.SYRIN IVPB PRN (15:11)
[2017-09-03] MEDS ORDERED: SODIUM CHLORIDE 1,000 ML IV SCH (15:15)
--- NOTE | 2017-09-03 15:23 | CONSULT ---
Consult Consult Specialty:: Surgery Reason for Consultation:: Abdominal pain. Pancreatitis. Portal vein thrombosis - History of Present Illness History of Present Illness: 27 female s/p sleeve gastrectomy Presents with epigastric abdominal pain in last several days Difficulty with tolerating clears Mild nausea No vomiting No fevers - History Source History Provided By: Patient, Medical Record - Past Medical History Cardio/Vascular: Yes: HTN ...LMP: 07/11/17 - Past Surgical History Past Surgical History: Yes: Bariatric Surgery (Sleeve gastrectomy) - Alcohol/Substance Use Hx Alcohol Use: No History of Substance Use: reports: None - Smoking History Smoking history: Former smoker Have you smoked in the past 12 months: No If you are a former smoker, when did you quit?: 2016 - Social History ADL: Independent 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 Home Medications - Allergies Allergies/Adverse Reactions: Allergies Allergy/AdvReac Type Severity Reaction Status Date / Time No Known Allergies Allergy Verified 09/02/17 11:48 - Home Medications Home Medications: Ambulatory Orders Metoprolol Tartrate [Lopressor -] 50 mg PO DAILY 06/23/16 Cyclobenzaprine HCl [Flexeril -] 10 mg PO BID 08/09/17 Losartan Potassium [Cozaar -] 50 mg PO DAILY 08/09/17 Famotidine [Pepcid] 20 mg PO BID #60 tablet 08/11/17 Oxycodone HCl/Acetaminophen [Percocet 5-325 mg Tablet] 1 - 2 tab PO Q6H #28 tab MDD 4 08/11/17 Family Disease History - Family Disease History Family History: Denies Review of Systems - Review of Systems Constitutional: denies: Chills, Fever HENT: reports: No Symptoms Neck: denies: Tenderness Cardiovascular: denies: Chest Pain Respiratory: denies: Cough Gastrointestinal: reports: Abdominal Pain Neurological: denies: Change in LOC Pain Intensity: 5 Physical Exam Vital Signs: Vital Signs Temperature 97.8 F 09/03/17 10:31 Pulse Rate 90 09/03/17 10:31 Respiratory Rate 20 09/03/17 10:31 Blood Pressure 125/71 09/03/17 10:31 O2 Sat by Pulse Oximetry (%) 100 09/03/17 10:00 Constitutional: Yes: Calm Neck: Yes: Supple Cardiovascular: Yes: Regular Rate and Rhythm Respiratory: Yes: CTA Bilaterally Gastrointestinal: Yes: Soft, Abdomen, Obese, Tenderness, Epigastrium. No: Tenderness, Rebound Extremities: Yes: WNL Wound/Incision: Yes: Clean/Dry Neurological: Yes: Alert, Oriented Labs: CBC, BMP 09/03/17 07:00 09/03/17 07:00 Imaging - Results Cat Scan: Report Reviewed, Image Reviewed Ultrasound: Report Reviewed, Image Reviewed Problem List - Problems (1) Pancreatitis Code(s): K85.90 - ACUTE PANCREATITIS WITHOUT NECROSIS OR INFECTION, UNSP Qualifiers: Chronicity: acute Pancreatitis type: other Acute pancreatitis complication: no infection or necrosis Qualified Code(s): K85.80 - Other acute pancreatitis without necrosis or infection (2) Portal vein thrombosis Code(s): I81 - PORTAL VEIN THROMBOSIS Assessment/Plan 27 female with pancreatitis, portal vein thrombosis Recent sleeve gastrectomy Etiology of pancreatitis possibly due to: 1. Dehydration/hypovolemia: Was having difficulty tolerating clears and with concentrated/dark urine 2. Sludge seen in gallbladder- on ultrasound a stone may have passed into the CBD causing transient pancreatitis 3. Recent weight loss from the sleeve gastrectomy Needs IV fluids, NPO, bowel rest Trend lipase levels Etiology of portal vein thrombosis possibly due to: Pancreatitis- from the reasons listed above Underlying clotting disorder On anticoagulation Vascular surgery and Hematology consulted to evaluate for other etiologies and treatment Needs to ambulate
--- NOTE | 2017-09-03 16:27 | EKG ---
Test Reason : Blood Pressure : / mmHG Vent. Rate : 094 BPM Atrial Rate : 094 BPM P-R Int : 136 ms QRS Dur : 090 ms QT Int : 358 ms P-R-T Axes : 054 000 057 degrees QTc Int : 447 ms NORMAL SINUS RHYTHM NORMAL ECG WHEN COMPARED WITH ECG OF 23-JUN-2016 19:18, NO SIGNIFICANT CHANGE WAS FOUND Confirmed by BRYAN MARTINES MD ([id number]) on 09/03/2017 4:26:45 PM Referred By: Confirmed By:BRYAN MARTINES MD
[2017-09-03] MEDS: SODIUM CHLORIDE 0.45% 1,000 ML IV SCH ×2 (17:28→20:42)
[2017-09-03] MEDS: HYDROmorphone HCL CARPU-JECT 2 MG/1 ML DISP.SYRIN IVPB PRN (20:00)
[2017-09-04] MEDS: SODIUM CHLORIDE 0.45% 1,000 ML IV SCH ×3 (03:00→19:44)
[2017-09-04] MEDS: HYDROmorphone HCL CARPU-JECT 2 MG/1 ML DISP.SYRIN IVPB PRN ×4 (03:03→19:43)
[2017-09-04] MEDS: ENOXAPARIN NA (PORCINE) 100 MG/1 ML DISP.SYRIN SQ SCH ×2 (05:27→17:19)
--- NOTE | 2017-09-04 09:19 | PN ---
Progress Note (short form) - Note Progress Note: Vascular surgery
--- NOTE | 2017-09-04 09:25 | PN ---
Progress Note (short form) - Note Progress Note: Vascular Surgery Pt's CT reviewed. Shows partial portal vein thrombosis with pancreatitis. Recent gastric sleeve. Could be from manipulation in area. Will do MRV to check for portal vein thrombosis since she is so young. Treatment for portal vein thrombosis is usually AC for life. Heme consult for input. Bethel romero DO
[2017-09-04] MEDS: CYCLOBENZAPRINE HCL 10 MG TABLET (FP) PO SCH (09:26)
[2017-09-04] MEDS: ONDANSETRON 4 MG/2 ML VIAL IVPB PRN ×2 (12:34→21:26)
--- NOTE | 2017-09-04 15:11 | PN ---
Progress Note, Physician Chief Complaint: AWAKE ALERT FAMILY BEDSIDE C/O PAIN 8/10 + CLEAR YELLOW VOMITING REPORTED - Current Medication List Current Medications: Active Medications Cyclobenzaprine HCl (Flexeril -) 10 mg PO BID [facility] Last Admin: 09/04/17 09:26 Dose: 10 mg Enoxaparin Sodium (Lovenox -) 100 mg SQ BID@0500,1700 [facility] Last Admin: 09/04/17 05:27 Dose: 100 mg Hydromorphone HCl (Dilaudid Injection -) 1 mg IVPB Q4H PRN PRN Reason: PAIN Last Admin: 09/04/17 09:24 Dose: 1 mg Sodium Chloride (1/2 Normal Saline) 1,000 mls @ 150 mls/hr IV ASDIR [facility] Last Admin: 09/04/17 11:11 Dose: 150 mls/hr Losartan Potassium (Cozaar -) 50 mg PO DAILY [facility] Last Admin: 09/03/17 10:51 Dose: 50 mg Metoprolol Tartrate (Lopressor -) 50 mg PO DAILY [facility] Last Admin: 09/03/17 10:51 Dose: 50 mg Ondansetron HCl (Zofran Injection) 4 mg IVPB Q4H PRN PRN Reason: NAUSEA Last Admin: 09/04/17 12:34 Dose: 4 mg - Objective Vital Signs: Vital Signs Temperature 97.5 F L 09/04/17 14:49 Pulse Rate 82 09/04/17 14:49 Respiratory Rate 20 09/04/17 14:49 Blood Pressure 111/65 09/04/17 14:49 O2 Sat by Pulse Oximetry (%) 99 09/04/17 09:00 Constitutional: Yes: Mild Distress Eyes: Yes: WNL HENT: Yes: WNL Neck: Yes: WNL Cardiovascular: Yes: WNL Respiratory: Yes: WNL Gastrointestinal: Yes: Tenderness Genitourinary: Yes: WNL Musculoskeletal: Yes: WNL Extremities: Yes: WNL Edema: No Peripheral Pulses WNL: Yes Integumentary: Yes: WNL Wound/Incision: Yes: Clean/Dry Neurological: Yes: WNL ...Motor Strength: WNL Psychiatric: Yes: WNL Labs: CBC, BMP 09/03/17 07:00 09/03/17 07:00 INR, PTT INR 1.38 (0.82-1.09) H 09/02/17 14:20 Problem List - Problems (1) Pancreatitis Code(s): K85.90 - ACUTE PANCREATITIS WITHOUT NECROSIS OR INFECTION, UNSP Qualifiers: Chronicity: acute Pancreatitis type: other Acute pancreatitis complication: no infection or necrosis Qualified Code(s): K85.80 - Other acute pancreatitis without necrosis or infection (2) Portal vein thrombosis Code(s): I81 - PORTAL VEIN THROMBOSIS Assessment/Plan HOLD BP MEDS FOR NOW NPO ZOFRAN AND PAIN CONTROL LIVER MRI/HOLE FILLER PENDING GI F/U HEME ONC FOR PORTAL VEIN THROMBOSIS
[2017-09-04] MEDS: METOPROLOL TARTRATE 50 MG TABLET (FP) PO SCH (15:14)
[2017-09-04] MEDS: LOSARTAN POTASSIUM 50 MG TABLET (FP) PO SCH (15:14)
[2017-09-04] MEDS: PANTOPRAZOLE SODIUM 40 MG VIAL IVPUSH SCH (15:34)
[2017-09-05] MEDS: HYDROmorphone HCL CARPU-JECT 2 MG/1 ML DISP.SYRIN IVPB PRN ×5 (01:46→22:28)
[2017-09-05] MEDS: SODIUM CHLORIDE 0.45% 1,000 ML IV SCH (04:23)
[2017-09-05] MEDS: ENOXAPARIN NA (PORCINE) 100 MG/1 ML DISP.SYRIN SQ SCH ×2 (05:50→17:35)
[2017-09-05 07:37] LABS: ALBUMIN 2.9 g/dl (3.4-5.0); ANION GAP 13 (8-16); CALCIUM 7.5 mg/dL (8.5-10.1); CHLORIDE 100 mmol/L (98-107); CO2 26 mmol/L (21-32); CREATININE 0.7 mg/dL (0.55-1.02); GLUCOSE,RANDOM 72 mg/dL (74-106); MAGNESIUM 1.2 mg/dL (1.8-2.4); POTASSIUM 3.7 mmol/L (3.5-5.1); SGOT/AST 36 U/L (15-37); SGPT/ALT 54 U/L (12-78); SODIUM 139 mmol/L (136-145)
[2017-09-05 07:39] LABS: ALK PHOS 41 U/L (45-117); BILIRUBIN,TOTAL 0.7 mg/dL (0.2-1.0); TOT PROT 5.4 g/dl (6.4-8.2)
[2017-09-05 07:42] LABS: LIPASE 293 U/L (73-393)
[2017-09-05 07:43] LABS: BLOOD UREA NITROGEN 2 mg/dL (7-18)
[2017-09-05 07:55] LABS: BASO % 0.4 % (0-2.0); EOS % 1.6 % (0-4.5); HEMATOCRIT 34.8 % (32.4-45.2); HEMOGLOBIN 11.3 GM/dL (10.7-15.3); LYMPH % 60.4 % (8-40); MCH 28.8 pg (25.7-33.7); MCHC 32.6 g/dl (32.0-36.0); MEAN CELL VOLUME 88.4 fl (80-96); NEUT % 27.6 % (42.8-82.8); PLATELET COUNT 114 K/MM3 (134-434); RBC 3.94 M/mm3 (3.60-5.2); RDW 13.4 % (11.6-15.6); WHITE BLOOD COUNT 4.2 K/mm3 (4.0-10.0)
[2017-09-05] MEDS: PANTOPRAZOLE SODIUM 40 MG VIAL IVPUSH SCH (10:25)
[2017-09-05] MEDS ORDERED: SODIUM CHLORIDE 0.45% 1,000 ML IV SCH (11:20)
--- NOTE | 2017-09-05 16:06 | HOSP ---
Physical Examination Labs: CBC, BMP 09/05/17 06:25 09/05/17 06:25 Hospitalist Encounter Assessment: RN Paged me to evaluate patient for chest pain and perioral numbness, per Dr. Lawrence's request. Briefly, Patient is a 27 year old female with a PMHx of HTN and recent sleeve gastrectomy (08/11/17) who presented for abdominal pain associated with nausea and vomiting. Patient was found to have pancreatitis and Portal vein thrombosis Upon my arrival patient was in no acute distress and appropriately answering questions. Patient states since yesterday she's had perioral numbness that occurs when she stands up and walks around associated with sharp left sided chest pain radiating to below the left breast. Patient states the chest pain also started the same time yesterday and occurs spontaneously. She states the pain lasts for seconds when it does happen. Patient does admit to feeling very anxious because of her recent diagnosis and being in the hospital for the last couple days. Patient reports a cough for over a week and when she coughs the chest pain is exacerbated. She also reports chest pain exacerbation when she takes a deep breath in. However, she denies fever, chills, nausea, vomiting, shortness of breath, dizziness. VITALS: TEMP:97.9 F BP: 104/70 HR: 83 BPM RR: 16 SAT: 100% on RA PHYSICAL EXAM: GENERAL: Awake, Alert, Oriented x3, Anxious, and in no acute distress HEART: RRR, No M/R/G, normal S1 and S2. Reproducible tenderness upon palpation of left chest LUNGS: CTA Bilaterally no wheezes or crackles ABDOMEN: Soft, obese, mild tenderness upon palpation of epigastric region with 4 incisions covered in dermabond c/d/i EXTREMITIES: No peripheral edema ASSESSMENT AND PLAN Patient is a 27 year old female with a recent sleeve gastrectomy (08/11/17) who presented with abdominal pain and was found to have pancreatitis likely secondary to gallstones due to sludge seen in gallbladder on U/S and Portal Vein thrombosis possibly due to underlying clotting disorder. I was called to evaluate patient for Chest pain and perioral numbness -I suspect patient is having chest pain and perioral numbness due to anxiety. However, will rule out cardiac etiology vs electrolyte abnormalities vs. costochondritis. Upon palpation of the chest, patient immediately complained of "achy" and "sharp" chest pain, which favors costrochondritis. -EKG done which revealed Normal Sinus Rhythm at [address]-T elevations or depressions. -BMP was notable for hypomagnesemia of 1.2, which can cause numbness. Will replete with Magnesium sulfate 2gm IVPB. Corrected calcium was 8.4, which is wnl. -Phosphorous level ordered -Troponins sent -Case discussed with PCP, Dr. Lawrence, who will follow up and evaluate the patient today. Visit type - Emergency Visit Emergency Visit: No - New Patient This patient is new to me today: Yes Date on this admission: 09/05/17 - Critical Care Critical Care patient: No
[2017-09-05] MEDS ORDERED: MAGNESIUM SULF 50% (8.12 MEQ/2 ML-1 GM VIAL) IVPB ONE (16:45)
--- NOTE | 2017-09-05 17:50 | PN ---
Progress Note, Physician Chief Complaint: AWAKE ALERT NOTES AND EVENTS REVIEWED - Current Medication List Current Medications: Active Medications Enoxaparin Sodium (Lovenox -) 100 mg SQ BID@0500,1700 [facility] Last Admin: 09/05/17 17:35 Dose: 100 mg Hydromorphone HCl (Dilaudid Injection -) 1 mg IVPB Q4H PRN PRN Reason: PAIN Last Admin: 09/05/17 14:34 Dose: 1 mg Ondansetron HCl (Zofran Injection) 4 mg IVPB Q4H PRN PRN Reason: NAUSEA Last Admin: 09/04/17 21:26 Dose: 4 mg Pantoprazole Sodium (Protonix Iv) 40 mg IVPUSH DAILY [facility] Last Admin: 09/05/17 10:25 Dose: 40 mg - Objective Vital Signs: Vital Signs Temperature 97.9 F 09/05/17 16:11 Pulse Rate 83 09/05/17 16:11 Respiratory Rate 18 09/05/17 16:11 Blood Pressure 104/70 09/05/17 16:11 O2 Sat by Pulse Oximetry (%) 100 09/05/17 09:00 Constitutional: Yes: Mild Distress Eyes: Yes: WNL HENT: Yes: WNL Neck: Yes: WNL Cardiovascular: Yes: WNL Respiratory: Yes: WNL Gastrointestinal: Yes: Tenderness Genitourinary: Yes: WNL Musculoskeletal: Yes: WNL Extremities: Yes: WNL Edema: No Peripheral Pulses WNL: Yes Integumentary: Yes: WNL Wound/Incision: Yes: Clean/Dry Neurological: Yes: WNL ...Motor Strength: WNL Psychiatric: Yes: WNL Labs: CBC, BMP 09/05/17 06:25 09/05/17 06:25 INR, PTT INR 1.38 (0.82-1.09) H 09/02/17 14:20 Problem List - Problems (1) Pancreatitis Code(s): K85.90 - ACUTE PANCREATITIS WITHOUT NECROSIS OR INFECTION, UNSP Qualifiers: Chronicity: acute Pancreatitis type: other Acute pancreatitis complication: no infection or necrosis Qualified Code(s): K85.80 - Other acute pancreatitis without necrosis or infection (2) Portal vein thrombosis Code(s): I81 - PORTAL VEIN THROMBOSIS Assessment/Plan LIQUID PUREE DIET MRI PENDING IVF PAIN CONTROL LOVENOX BID PORTAL THROMBOSIS RULE OUT
[2017-09-05 18:01] LABS: PHOSPHOROUS 2.8 mg/dL (2.5-4.9)
--- NOTE | 2017-09-05 22:02 | PN ---
Progress Note (short form) - Note Progress Note: Still with abdominal pain- treated with dilaudid NPO for pancreatitis Vascular surgery evaluated for portal vein thrombosis- MRI ordered- official reading pending Vital Signs Period Temp Pulse Resp BP Sys/Nguyễn Pulse Ox Last 24 Hr 97.2 F-98.3 F 77-89 18-20 100-125/61-70 100 CBC,CMP WBC 4.2 K/mm3 (4.0-10.0) 09/05/17 06:25 RBC 3.94 M/mm3 (3.60-5.2) 09/05/17 06:25 Hgb 11.3 GM/dL (10.7-15.3) 09/05/17 06:25 Hct 34.8 % (32.4-45.2) 09/05/17 06:25 MCV 88.4 fl (80-96) 09/05/17 06:25 MCH 28.8 pg (25.7-33.7) 09/05/17 06:25 MCHC 32.6 g/dl (32.0-36.0) 09/05/17 06:25 RDW 13.4 % (11.6-15.6) 09/05/17 06:25 Plt Count 114 K/MM3 (134-434) L 09/05/17 06:25 MPV 11.0 fl (7.5-11.1) 09/05/17 06:25 Absolute Neuts (auto) 3.0 # (42.8-82.8) L 09/02/17 14:20 Absolute Lymphs (auto) 2.0 (8-40) L 09/02/17 14:20 Absolute Monos (auto) 0.7 # (3.8-10.2) L 09/02/17 14:20 Absolute Eos (auto) 0.0 # (0-4.5) 09/02/17 14:20 Absolute Basos (auto) 0.1 # (0.1-1) 09/02/17 14:20 Neutrophils % 27.6 % (42.8-82.8) L 09/05/17 06:25 Lymphocytes % 60.4 % (8-40) H 09/05/17 06:25 Monocytes % 10.0 % (3.8-10.2) 09/05/17 06:25 Eosinophils % 1.6 % (0-4.5) 09/05/17 06:25 Basophils % 0.4 % (0-2.0) 09/05/17 06:25 Sodium 139 mmol/L (136-145) 09/05/17 06:25 Potassium 3.7 mmol/L (3.5-5.1) 09/05/17 06:25 Chloride 100 mmol/L (98-107) D 09/05/17 06:25 Carbon Dioxide 26 mmol/L (21-32) D 09/05/17 06:25 Anion Gap 13 (8-16) 09/05/17 06:25 BUN 2 mg/dL (7-18) L* D 09/05/17 06:25 Creatinine 0.7 mg/dL (0.55-1.02) 09/05/17 06:25 Creat Clearance w eGFR > 60 (>60) 09/05/17 06:25 Random Glucose 72 mg/dL (74-106) L 09/05/17 06:25 Lactic Acid 1.1 mmol/L (0.4-2.0) 09/02/17 14:20 Calcium 7.5 mg/dL (8.5-10.1) L 09/05/17 06:25 Phosphorus 2.8 mg/dL (2.5-4.9) 09/05/17 17:20 Magnesium 1.2 mg/dL (1.8-2.4) L D 09/05/17 06:25 Total Bilirubin 0.7 mg/dL (0.2-1.0) D 09/05/17 06:25 AST 36 U/L (15-37) 09/05/17 06:25 ALT 54 U/L (12-78) 09/05/17 06:25 Alkaline Phosphatase 41 U/L (45-117) L 09/05/17 06:25 Troponin I < 0.02 ng/ml (0.00-0.05) 09/05/17 17:20 Total Protein 5.4 g/dl (6.4-8.2) L 09/05/17 06:25 Albumin 2.9 g/dl (3.4-5.0) L 09/05/17 06:25 Lipase 293 U/L (73-393) 12/25/17 06:25 NPO Lipase improved- now within normal limits Await hematology plan for anticoagulation upon discharge and workup for underlying clotting disorder Problem List - Problems (1) Pancreatitis Code(s): K85.90 - ACUTE PANCREATITIS WITHOUT NECROSIS OR INFECTION, UNSP Qualifiers: Chronicity: acute Pancreatitis type: other Acute pancreatitis complication: no infection or necrosis Qualified Code(s): K85.80 - Other acute pancreatitis without necrosis or infection (2) Portal vein thrombosis Code(s): I81 - PORTAL VEIN THROMBOSIS
[2017-09-06] MEDS: ENOXAPARIN NA (PORCINE) 100 MG/1 ML DISP.SYRIN SQ SCH ×2 (05:32→19:08)
[2017-09-06] MEDS: HYDROmorphone HCL CARPU-JECT 2 MG/1 ML DISP.SYRIN IVPB PRN ×3 (06:55→20:51)
[2017-09-06 07:35] LABS: MAGNESIUM 1.9 mg/dL (1.8-2.4)
--- NOTE | 2017-09-06 08:09 | PN ---
Progress Note (short form) - Note Progress Note: Epigastric pain improved Tolerated some fulls Ambulating Vital Signs Period Temp Pulse Resp BP Sys/Nguyễn Pulse Ox Last 24 Hr 97.9 F-98.4 F 77-89 18-20 95-125/59-75 100-100 Abd soft, minimal tenderness CBC, BMP 09/05/17 06:25 09/05/17 06:25 Await MRI read Hematology to follow for anticoagulation plan Discussed in detail with patient importance of clotting workup with hematology and anticoagulation therapy She understands and agrees Problem List - Problems (1) Pancreatitis Code(s): K85.90 - ACUTE PANCREATITIS WITHOUT NECROSIS OR INFECTION, UNSP Qualifiers: Chronicity: acute Pancreatitis type: other Acute pancreatitis complication: no infection or necrosis Qualified Code(s): K85.80 - Other acute pancreatitis without necrosis or infection (2) Portal vein thrombosis Code(s): I81 - PORTAL VEIN THROMBOSIS
[2017-09-06] MEDS ORDERED: FAMOTIDINE IV 20 MG/12 ML VIAL IVPUSH SCH (11:15)
[2017-09-06] MEDS: PANTOPRAZOLE SODIUM 40 MG VIAL IVPUSH SCH (11:23)
--- NOTE | 2017-09-06 12:03 | PN ---
Progress Note, Physician Chief Complaint: Portal vein thrombosis History of Present Illness: NAD,in bed, self ambulatory Has not been able to tolerate PO intake, causes pain every time she eats Lipase trending down Seen by GI sx and hematology - Current Medication List Current Medications: Active Medications Enoxaparin Sodium (Lovenox -) 100 mg SQ BID@0500,1700 [facility] Last Admin: 09/06/17 05:32 Dose: 100 mg Hydromorphone HCl (Dilaudid Injection -) 1 mg IVPB Q4H PRN PRN Reason: PAIN Last Admin: 09/06/17 06:55 Dose: 1 mg Ondansetron HCl (Zofran Injection) 4 mg IVPB Q4H PRN PRN Reason: NAUSEA Last Admin: 09/04/17 21:26 Dose: 4 mg Pantoprazole Sodium (Protonix Iv) 40 mg IVPUSH DAILY [facility] Last Admin: 09/06/17 11:23 Dose: 40 mg - Objective Vital Signs: Vital Signs Temperature 98.1 F 09/06/17 11:09 Pulse Rate 89 09/06/17 11:09 Respiratory Rate 20 09/06/17 11:09 Blood Pressure 96/57 09/06/17 11:09 O2 Sat by Pulse Oximetry (%) 100 09/05/17 21:00 Constitutional: Yes: Well Nourished, No Distress, Calm Cardiovascular: Yes: Regular Rate and Rhythm Respiratory: Yes: Regular Gastrointestinal: Yes: Abdomen, Obese, Tenderness Musculoskeletal: Yes: WNL Extremities: Yes: WNL Edema: No Peripheral Pulses WNL: Yes Neurological: Yes: Alert, Oriented Psychiatric: Yes: Alert, Oriented Labs: CBC, BMP 09/05/17 06:25 09/05/17 06:25 INR, PTT INR 1.38 (0.82-1.09) H 09/02/17 14:20 Problem List - Problems (1) Portal vein thrombosis Assessment/Plan: Lovenox BID -Unable to get intouch with Dr Lee, left message with the service -would likely need AC for at least 6 months -Would leave thrombosis work up upto hematology Code(s): I81 - PORTAL VEIN THROMBOSIS (2) Pancreatitis Assessment/Plan: lipase trending down, repeat in AM IVF with Kcl Code(s): K85.90 - ACUTE PANCREATITIS WITHOUT NECROSIS OR INFECTION, UNSP Qualifiers: Chronicity: acute Pancreatitis type: other Acute pancreatitis complication: no infection or necrosis Qualified Code(s): K85.80 - Other acute pancreatitis without necrosis or infection (3) Morbid (severe) obesity due to excess calories Code(s): E66.01 - MORBID (SEVERE) OBESITY DUE TO EXCESS CALORIES (4) Hypokalemia Assessment/Plan: IVF with KCl Code(s): E87.6 - HYPOKALEMIA Assessment/Plan see problem list
[2017-09-06 13:06] LABS: BASO % 0.8 % (0-2.0); EOS % 1.5 % (0-4.5); HEMATOCRIT 38.2 % (32.4-45.2); HEMOGLOBIN 12.3 GM/dL (10.7-15.3); LYMPH % 51.4 % (8-40); MCH 28.6 pg (25.7-33.7); MCHC 32.2 g/dl (32.0-36.0); MEAN CELL VOLUME 88.8 fl (80-96); MEAN PLT VOLUME 10.6 fl (7.5-11.1); MONO % 11.5 % (3.8-10.2); NEUT % 34.8 % (42.8-82.8); PLATELET COUNT 121 K/MM3 (134-434); RDW 13.8 % (11.6-15.6); WHITE BLOOD COUNT 3.6 K/mm3 (4.0-10.0)
[2017-09-06 13:17] LABS: ALBUMIN 3.2 g/dl (3.4-5.0); ANION GAP 11 (8-16); BILIRUBIN,TOTAL 0.8 mg/dL (0.2-1.0); CALCIUM 7.4 mg/dL (8.5-10.1); CHLORIDE 99 mmol/L (98-107); CO2 29 mmol/L (21-32); CREATININE 0.6 mg/dL (0.55-1.02); GLUCOSE,RANDOM 76 mg/dL (74-106); POTASSIUM 3.2 mmol/L (3.5-5.1); SGOT/AST 81 U/L (15-37); SGPT/ALT 94 U/L (12-78); SODIUM 139 mmol/L (136-145)
[2017-09-06 13:18] LABS: ALK PHOS 46 U/L (45-117); TOT PROT 5.7 g/dl (6.4-8.2)
[2017-09-06 13:35] LABS: BLOOD UREA NITROGEN 1 mg/dL (7-18)
[2017-09-06] MEDS: ONDANSETRON 4 MG/2 ML VIAL IVPB PRN (13:45)
[2017-09-06] MEDS: D5-LR+20 MEQ KCL - 20 MEQ/1,000 ML INFUS.BAG IV SCH ×2 (16:39→16:41)
[2017-09-06] MEDS ORDERED: ENOXAPARIN NA (PORCINE) 120 MG/0.8 ML DISP.SYRIN SQ ONE ×2 (18:15)
[2017-09-07] MEDS: ENOXAPARIN NA (PORCINE) 100 MG/1 ML DISP.SYRIN SQ SCH ×2 (06:29→16:23)
[2017-09-07] MEDS: HYDROmorphone HCL CARPU-JECT 2 MG/1 ML DISP.SYRIN IVPB PRN ×3 (07:10→19:27)
[2017-09-07 07:45] LABS: BASO % 0.6 % (0-2.0); EOS % 1.1 % (0-4.5); HEMATOCRIT 37.9 % (32.4-45.2); HEMOGLOBIN 12.3 GM/dL (10.7-15.3); LYMPH % 48.4 % (8-40); MCH 28.8 pg (25.7-33.7); MCHC 32.4 g/dl (32.0-36.0); MEAN CELL VOLUME 88.9 fl (80-96); MEAN PLT VOLUME 10.9 fl (7.5-11.1); NEUT % 38.9 % (42.8-82.8); PLATELET COUNT 118 K/MM3 (134-434); RBC 4.26 M/mm3 (3.60-5.2); RDW 13.7 % (11.6-15.6); WHITE BLOOD COUNT 3.7 K/mm3 (4.0-10.0)
[2017-09-07 07:51] LABS: ALBUMIN 3.1 g/dl (3.4-5.0); ANION GAP 5 (8-16); CALCIUM 7.9 mg/dL (8.5-10.1); CHLORIDE 101 mmol/L (98-107); CO2 34 mmol/L (21-32); GLUCOSE,RANDOM 119 mg/dL (74-106); POTASSIUM 3.4 mmol/L (3.5-5.1); SGOT/AST 69 U/L (15-37); SGPT/ALT 98 U/L (12-78); SODIUM 140 mmol/L (136-145)
[2017-09-07 07:54] LABS: ALK PHOS 44 U/L (45-117); BILIRUBIN,TOTAL 0.6 mg/dL (0.2-1.0); CREATININE 0.7 mg/dL (0.55-1.02); TOT PROT 5.7 g/dl (6.4-8.2)
[2017-09-07 08:06] LABS: BLOOD UREA NITROGEN 1 mg/dL (7-18)
[2017-09-07] MEDS: ONDANSETRON 4 MG/2 ML VIAL IVPB PRN ×2 (08:50→20:59)
[2017-09-07] MEDS: PANTOPRAZOLE SODIUM 40 MG VIAL IVPUSH SCH (10:02)
[2017-09-07] MEDS: AMINO ACIDS/PROTEIN HYDROLYS 30 ML LIQUID.PKT PO SCH ×2 (10:07→16:59)
[2017-09-07] MEDS: D5-LR+20 MEQ KCL - 20 MEQ/1,000 ML INFUS.BAG IV SCH ×2 (10:56→16:24)
--- NOTE | 2017-09-07 11:21 | PN ---
Progress Note (short form) - Note Progress Note: Patient states she has increased epigastric pain + vomit x 1 episode Vital Signs Period Temp Pulse Resp BP Sys/Nguyễn Pulse Ox Last 24 Hr 98.0 F-98.6 F 68-86 16-20 109-129/44-75 100 Abd soft, mild epigastric pain, no rebound CBC,CMP WBC 3.7 K/mm3 (4.0-10.0) L 09/07/17 07:10 RBC 4.26 M/mm3 (3.60-5.2) 09/07/17 07:10 Hgb 12.3 GM/dL (10.7-15.3) 09/07/17 07:10 Hct 37.9 % (32.4-45.2) 09/07/17 07:10 MCV 88.9 fl (80-96) 09/07/17 07:10 MCH 28.8 pg (25.7-33.7) 09/07/17 07:10 MCHC 32.4 g/dl (32.0-36.0) 09/07/17 07:10 RDW 13.7 % (11.6-15.6) 09/07/17 07:10 Plt Count 118 K/MM3 (134-434) L 09/07/17 07:10 MPV 10.9 fl (7.5-11.1) 09/07/17 07:10 Absolute Neuts (auto) 3.0 # (42.8-82.8) L 09/02/17 14:20 Absolute Lymphs (auto) 2.0 (8-40) L 09/02/17 14:20 Absolute Monos (auto) 0.7 # (3.8-10.2) L 09/02/17 14:20 Absolute Eos (auto) 0.0 # (0-4.5) 09/02/17 14:20 Absolute Basos (auto) 0.1 # (0.1-1) 09/02/17 14:20 Neutrophils % 38.9 % (42.8-82.8) L 09/07/17 07:10 Lymphocytes % 48.4 % (8-40) H 09/07/17 07:10 Monocytes % 11.0 % (3.8-10.2) H 09/07/17 07:10 Eosinophils % 1.1 % (0-4.5) 09/07/17 07:10 Basophils % 0.6 % (0-2.0) 09/07/17 07:10 Sodium 140 mmol/L (136-145) 09/07/17 07:10 Potassium 3.4 mmol/L (3.5-5.1) L 09/07/17 07:10 Chloride 101 mmol/L (98-107) 09/07/17 07:10 Carbon Dioxide 34 mmol/L (21-32) H 09/07/17 07:10 Anion Gap 5 (8-16) L 09/07/17 07:10 BUN 1 mg/dL (7-18) L* 09/07/17 07:10 Creatinine 0.7 mg/dL (0.55-1.02) 09/07/17 07:10 Creat Clearance w eGFR > 60 (>60) 09/07/17 07:10 Random Glucose 119 mg/dL (74-106) H D 09/07/17 07:10 Lactic Acid 1.1 mmol/L (0.4-2.0) 09/02/17 14:20 Calcium 7.9 mg/dL (8.5-10.1) L 09/07/17 07:10 Phosphorus 2.8 mg/dL (2.5-4.9) 09/05/17 17:20 Magnesium 1.9 mg/dL (1.8-2.4) D 09/06/17 06:25 Total Bilirubin 0.6 mg/dL (0.2-1.0) D 09/07/17 07:10 AST 69 U/L (15-37) H 09/07/17 07:10 ALT 98 U/L (12-78) H 09/07/17 07:10 Alkaline Phosphatase 44 U/L (45-117) L 09/07/17 07:10 Troponin I < 0.02 ng/ml (0.00-0.05) 09/05/17 17:20 Total Protein 5.7 g/dl (6.4-8.2) L 09/07/17 07:10 Albumin 3.1 g/dl (3.4-5.0) L 09/07/17 07:10 Total Amylase 62 U/L (25-115) 12/27/17 07:10 Lipase 398 U/L (73-393) H 09/07/17 07:15 Lipase increased IV fluids GI evaluation- possible ERCP to evaluate for small stone in pancreatic duct not seen on MRI and to evaluate pancreatic divisum Problem List - Problems (1) Pancreatitis Code(s): K85.90 - ACUTE PANCREATITIS WITHOUT NECROSIS OR INFECTION, UNSP Qualifiers: Chronicity: acute Pancreatitis type: other Acute pancreatitis complication: no infection or necrosis Qualified Code(s): K85.80 - Other acute pancreatitis without necrosis or infection (2) Portal vein thrombosis Code(s): I81 - PORTAL VEIN THROMBOSIS
--- NOTE | 2017-09-07 11:54 | CON.GI ---
Consult Consult Specialty:: GI Reason for Consultation:: PVT, epigastric pain - History of Present Illness History of Present Illness: Chart reviewed, events noted. This is a 27 year old female with hx of HTN and gastric sleeve 08/11/17, presented to the ED on 09/02/17 with epigastric pain and postprandial nausea. The symptoms started the Tuesday before, acutely, w/o diarrhea, melena, ematochezia, hematemesis, fver, chills, jaundice. Denies alcohol, nsaids, elicit drugs. No history of GI/pancreaticobiliary issues personally, or in family. While hospitalize noted to have mildly elevated lipase, normal liver chemistry, biliary sludge and PVT. No personal history of dvt, PE, blood, clots , miscarriages. 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 Home Medications - Allergies Allergies/Adverse Reactions: Allergies Allergy/AdvReac Type Severity Reaction Status Date / Time No Known Allergies Allergy Verified 09/02/17 11:48 - Home Medications Home Medications: Ambulatory Orders Metoprolol Tartrate [Lopressor -] 50 mg PO DAILY 06/23/16 Cyclobenzaprine HCl [Flexeril -] 10 mg PO BID 08/09/17 Losartan Potassium [Cozaar -] 50 mg PO DAILY 08/09/17 Famotidine [Pepcid] 20 mg PO BID #60 tablet 08/11/17 Oxycodone HCl/Acetaminophen [Percocet 5-325 mg Tablet] 1 - 2 tab PO Q6H #28 tab MDD 4 08/11/17 Family Disease History - Family Disease History Family History: Unremarkable Review of Systems Findings/Remarks: please refer to H&P Physical Exam-GI Vital Signs: Vital Signs Temperature 98.0 F 09/07/17 06:00 Pulse Rate 68 09/07/17 06:00 Respiratory Rate 18 09/07/17 06:00 Blood Pressure 129/68 09/07/17 06:00 O2 Sat by Pulse Oximetry (%) 100 09/06/17 21:00 Constitutional: Yes: Well Nourished, No Distress, Calm Eyes: Yes: Conjunctiva Clear HENT: Yes: Atraumatic Cardiovascular: Yes: Regular Rate and Rhythm Respiratory: Yes: Regular ...Auscultate: Yes: Normoactive Bowel Sounds ...Palpate: Yes: Tenderness, Epigastium. No: Firm/Rigid, Guarding Labs: CBC, BMP 09/07/17 07:10 09/07/17 07:10 INR, PTT INR 1.38 (0.82-1.09) H 09/02/17 14:20 Abnormal Lab Results 09/06/17 09/06/17 09/07/17 12:24 12:24 07:10 WBC 3.6 L 3.7 L Plt Count 121 L 118 L Neutrophils % 34.8 L D 38.9 L Lymphocytes % 51.4 H 48.4 H Monocytes % 11.5 H 11.0 H Potassium 3.2 L Carbon Dioxide Anion Gap BUN 1 L* D Random Glucose Calcium 7.4 L AST 81 H D ALT 94 H D Alkaline Phosphatase Total Protein 5.7 L Albumin 3.2 L Lipase 09/07/17 09/07/17 07:10 07:15 WBC Plt Count Neutrophils % Lymphocytes % Monocytes % Potassium 3.4 L Carbon Dioxide 34 H Anion Gap 5 L BUN 1 L* Random Glucose 119 H D Calcium 7.9 L AST 69 H ALT 98 H Alkaline Phosphatase 44 L Total Protein 5.7 L Albumin 3.1 L Lipase 398 H Imaging - Results Cat Scan: Report Reviewed Ultrasound: Report Reviewed MRI: Report Reviewed Problem List - Problems (1) Pancreatitis Code(s): K85.90 - ACUTE PANCREATITIS WITHOUT NECROSIS OR INFECTION, UNSP Qualifiers: Chronicity: acute Pancreatitis type: other Acute pancreatitis complication: no infection or necrosis Qualified Code(s): K85.80 - Other acute pancreatitis without necrosis or infection (2) Portal vein thrombosis Code(s): I81 - PORTAL VEIN THROMBOSIS
--- NOTE | 2017-09-07 12:17 | PN ---
Progress Note, Physician Chief Complaint: Portal vein thrombosis History of Present Illness: NAD,in bed, self ambulatory Has not been able to tolerate PO intake, causes pain every time she eats Lipase elevated today Seen by GI sx and hematology GI consult appreciated on IVF pain management - Current Medication List Current Medications: Active Medications Amino Acids (Prosource No Carb Liquid Pkt) 30 ml PO BID@0800,1730 [facility] Last Admin: 09/07/17 10:07 Dose: Not Given Enoxaparin Sodium (Lovenox -) 100 mg SQ BID@0500,1700 [facility] Last Admin: 09/07/17 06:29 Dose: 100 mg Hydromorphone HCl (Dilaudid Injection -) 1 mg IVPB Q4H PRN PRN Reason: PAIN Last Admin: 09/07/17 07:10 Dose: 1 mg Dextrose/Lactated Ringer's (D5-Lr+20 Meq Kcl -) 20 meq in 1,000 mls @ 125 mls/ hr IV ASDIR [facility] Last Admin: 09/07/17 10:56 Dose: 125 mls/hr Ondansetron HCl (Zofran Injection) 4 mg IVPB Q4H PRN PRN Reason: NAUSEA Last Admin: 09/07/17 08:50 Dose: 4 mg Pantoprazole Sodium (Protonix Iv) 40 mg IVPUSH DAILY [facility] Last Admin: 09/07/17 10:02 Dose: 40 mg - Objective Vital Signs: Vital Signs Temperature 98.0 F 09/07/17 06:00 Pulse Rate 68 09/07/17 06:00 Respiratory Rate 18 09/07/17 06:00 Blood Pressure 129/68 09/07/17 06:00 O2 Sat by Pulse Oximetry (%) 100 09/06/17 21:00 Constitutional: Yes: Well Nourished, No Distress, Calm Cardiovascular: Yes: Regular Rate and Rhythm Respiratory: Yes: Regular Gastrointestinal: Yes: Normal Bowel Sounds, Tenderness Musculoskeletal: Yes: WNL Extremities: Yes: WNL Edema: No Peripheral Pulses WNL: Yes Neurological: Yes: Alert, Oriented Psychiatric: Yes: Alert, Oriented Labs: CBC, BMP 09/07/17 07:10 09/07/17 07:10 INR, PTT INR 1.38 (0.82-1.09) H 09/02/17 14:20 Problem List - Problems (1) Portal vein thrombosis Assessment/Plan: Lovenox BID -hematology ok with factor X inhibitors, if insurance approves, otherwise warfarin -would likely need AC for at least 6 months -Would leave thrombosis work up up to hematology Code(s): I81 - PORTAL VEIN THROMBOSIS (2) Pancreatitis Assessment/Plan: lipase elevated today, repeat in AM -seen by GI -EGD in AM IVF with Kcl Code(s): K85.90 - ACUTE PANCREATITIS WITHOUT NECROSIS OR INFECTION, UNSP Qualifiers: Chronicity: acute Pancreatitis type: other Acute pancreatitis complication: no infection or necrosis Qualified Code(s): K85.80 - Other acute pancreatitis without necrosis or infection (3) Morbid (severe) obesity due to excess calories Code(s): E66.01 - MORBID (SEVERE) OBESITY DUE TO EXCESS CALORIES (4) Hypokalemia Assessment/Plan: -improved IVF with KCl Code(s): E87.6 - HYPOKALEMIA Assessment/Plan see problem list Encouraged to ambulate often
--- NOTE | 2017-09-07 20:46 | CONSULT ---
Consult Consult Specialty:: Hematology - History of Present Illness History of Present Illness: Pt seen by ( note in the paper chart) . 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 Therefore, this consultation was done. 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 Home Medications - Allergies Allergies/Adverse Reactions: Allergies Allergy/AdvReac Type Severity Reaction Status Date / Time No Known Allergies Allergy Verified 09/02/17 11:48 - Home Medications Home Medications: Ambulatory Orders Metoprolol Tartrate [Lopressor -] 50 mg PO DAILY 06/23/16 Cyclobenzaprine HCl [Flexeril -] 10 mg PO BID 08/09/17 Losartan Potassium [Cozaar -] 50 mg PO DAILY 08/09/17 Famotidine [Pepcid] 20 mg PO BID #60 tablet 08/11/17 Oxycodone HCl/Acetaminophen [Percocet 5-325 mg Tablet] 1 - 2 tab PO Q6H #28 tab MDD 4 08/11/17 Physical Exam Vital Signs: Vital Signs Temperature 97.3 F L 09/07/17 18:15 Pulse Rate 83 09/07/17 18:15 Respiratory Rate 20 09/07/17 18:15 Blood Pressure 123/79 09/07/17 18:15 O2 Sat by Pulse Oximetry (%) 98 09/07/17 09:00 Labs: CBC, BMP 09/07/17 07:10 09/07/17 07:10 Assessment/Plan PVT Mostly provoked but warrants an OP hypercoag w/u in this very young female choice of AC, could be NOACs vs coumadin vs LMWH, d/w patient, favor NOACs will switch to NOACS once procedures are completed and she is able to tolerate PO much better. discussed with pt in detail. d/w .
[2017-09-08] MEDS: HYDROmorphone HCL CARPU-JECT 2 MG/1 ML DISP.SYRIN IVPB PRN ×2 (00:26→05:04)
[2017-09-08] MEDS: ENOXAPARIN NA (PORCINE) 100 MG/1 ML DISP.SYRIN SQ SCH ×2 (05:04→16:49)
[2017-09-08] MEDS: D5-LR+20 MEQ KCL - 20 MEQ/1,000 ML INFUS.BAG IV SCH ×3 (05:04→16:52)
[2017-09-08] MEDS: AMINO ACIDS/PROTEIN HYDROLYS 30 ML LIQUID.PKT PO SCH ×2 (08:03→16:49)
[2017-09-08] MEDS: PANTOPRAZOLE SODIUM 40 MG VIAL IVPUSH SCH (09:30)
--- NOTE | 2017-09-08 10:43 | PN ---
Progress Note, Physician Chief Complaint: Portal vein thrombosis History of Present Illness: NAD,in bed, self ambulatory Has not been able to tolerate PO intake, causes pain every time she eats Lipase elevated today Seen by GI sx and hematology GI consult appreciated on IVF pain management - Current Medication List Current Medications: Active Medications Amino Acids (Prosource No Carb Liquid Pkt) 30 ml PO BID@0800,1730 [facility] Last Admin: 09/08/17 08:03 Dose: Not Given Enoxaparin Sodium (Lovenox -) 100 mg SQ BID@0500,1700 [facility] Last Admin: 09/08/17 05:04 Dose: Not Given Hydromorphone HCl (Dilaudid Injection -) 1 mg IVPB Q4H PRN PRN Reason: PAIN Last Admin: 09/08/17 05:04 Dose: 1 mg Dextrose/Lactated Ringer's (D5-Lr+20 Meq Kcl -) 20 meq in 1,000 mls @ 125 mls/ hr IV ASDIR [facility] Last Admin: 09/08/17 05:04 Dose: 125 mls/hr Ondansetron HCl (Zofran Injection) 4 mg IVPB Q4H PRN PRN Reason: NAUSEA Last Admin: 09/07/17 20:59 Dose: 4 mg Pantoprazole Sodium (Protonix Iv) 40 mg IVPUSH DAILY [facility] Last Admin: 09/08/17 09:30 Dose: 40 mg - Objective Vital Signs: Vital Signs Temperature 98.0 F 09/08/17 09:37 Pulse Rate 91 H 09/08/17 09:37 Respiratory Rate 20 09/08/17 09:37 Blood Pressure 118/75 09/08/17 09:37 O2 Sat by Pulse Oximetry (%) 98 09/07/17 22:00 Constitutional: Yes: Well Nourished, No Distress, Calm Cardiovascular: Yes: Regular Rate and Rhythm Respiratory: Yes: Regular Gastrointestinal: Yes: Normal Bowel Sounds, Tenderness Musculoskeletal: Yes: WNL Extremities: Yes: WNL Edema: No Peripheral Pulses WNL: Yes Neurological: Yes: Alert, Oriented Psychiatric: Yes: Alert, Oriented Labs: CBC, BMP 09/07/17 07:10 09/07/17 07:10 INR, PTT INR 1.38 (0.82-1.09) H 09/02/17 14:20 Problem List - Problems (1) Portal vein thrombosis Assessment/Plan: Lovenox BID -hematology ok with factor X inhibitors, if insurance approves, otherwise warfarin -would likely need AC for at least 6 months -Would leave thrombosis work up up to hematology Code(s): I81 - PORTAL VEIN THROMBOSIS (2) Pancreatitis Assessment/Plan: lipase elevated today, repeat in AM -seen by GI -EGD in AM IVF with Kcl Code(s): K85.90 - ACUTE PANCREATITIS WITHOUT NECROSIS OR INFECTION, UNSP Qualifiers: Chronicity: acute Pancreatitis type: other Acute pancreatitis complication: no infection or necrosis Qualified Code(s): K85.80 - Other acute pancreatitis without necrosis or infection (3) Morbid (severe) obesity due to excess calories Code(s): E66.01 - MORBID (SEVERE) OBESITY DUE TO EXCESS CALORIES (4) Hypokalemia Assessment/Plan: -improved IVF with KCl Code(s): E87.6 - HYPOKALEMIA Assessment/Plan see problem list Encouraged to ambulate often
[2017-09-08] MEDS ORDERED: PROPOFOL 20 ML ONE ×2 (11:27)
--- NOTE | 2017-09-08 12:01 | PROC ---
Endoscopy Procedure Endoscopy procedure completed. Please see scanned procedure report. Normal duodenal, gastric, esophageal mucosa. No esophageal, gastric varices No portal hypertensive gastropathy Random biopsies taken Resume previous diet, or regular diet as tolerated Follow hematology recommendation
[2017-09-08] MEDS ORDERED: HYDROmorphone HCL CARPU-JECT 1 MG/1 ML DISP.SYRIN IVPUSH PRN (13:34)
[2017-09-08] MEDS ORDERED: HYDROmorphone HCL CARPU-JECT 1 MG/1 ML DISP.SYRIN IVPB PRN (13:46)
[2017-09-08] MEDS ORDERED: HYDROmorphone HCL CARPU-JECT 2 MG/1 ML DISP.SYRIN IVPB PRN (14:23)
--- NOTE | 2017-09-08 14:55 | PN ---
Progress Note (short form) - Note Progress Note: Hematology Progress note: Pt seen and examined Pt vomiting clear a little amount as I walked in right after she ate something. O/E: General: looks comfortable HEENT NCAT Lungs: CTA b/l cor:rrr LE: no Edema Last Vital Signs Temp Pulse Resp BP Pulse Ox 98.2 F 94 H 15 116/86 97 09/08/17 11:49 09/08/17 12:19 09/08/17 12:19 09/08/17 12:19 09/08/17 12:19 CBC, BMP 09/07/17 07:10 09/07/17 07:10 Current Medications Generic Name Dose Route Start Last Admin Trade Name Freq PRN Reason Stop Dose Admin Amino Acids 30 ml 09/07/17 08:00 09/08/17 08:03 Prosource No Carb Liquid Pkt PO Not Given BID@0800,1730 [facility] Enoxaparin Sodium 100 mg 09/03/17 05:00 09/08/17 05:04 Lovenox - SQ Not Given BID@0500,1700 [facility] Hydromorphone HCl 1 mg 09/08/17 14:23 Dilaudid Injection - IVPB Q4H PRN PAIN Dextrose/Lactated Ringer's 20 meq in 1,000 mls @ 125 mls/hr 09/06/17 14:15 14:19 D5-Lr+20 Meq Kcl - IV Not Given ASDIR [facility] Ondansetron HCl 4 mg 09/03/17 15:11 09/07/17 20:59 Zofran Injection IVPB 4 mg Q4H PRN Administration NAUSEA Pantoprazole Sodium 40 mg 09/04/17 15:15 09/08/17 09:30 Protonix Iv IVPUSH 40 mg DAILY [facility] Administration PVT: Patient continues to have nausea/vomiting did not tolerate PO intake as per family will hold off on xarelto until she could tolerate PO c/w lovenox hypercoag w/u as an OP NEW onset Thrombocytopenia: could be from acute illness ?occult infection. ordered HIT other regular labs will follow closely
[2017-09-08] MEDS: ONDANSETRON 4 MG/2 ML VIAL IVPB PRN ×2 (15:00→21:49)
--- NOTE | 2017-09-08 15:01 | PN ---
Progress Note (short form) - Note Progress Note: Pain improved EGD by GI performed- normal esophageal, gastric mucosa; no gastropathy Starting to eat diet Vital Signs Period Temp Pulse Resp BP Sys/Nguyễn Pulse Ox Last 24 Hr 97.3 F-98.2 F 75-101 15-20 108-134/65-92 97-100 Abd soft, tenderness improved CBC,CMP WBC 3.7 K/mm3 (4.0-10.0) L 09/07/17 07:10 RBC 4.26 M/mm3 (3.60-5.2) 09/07/17 07:10 Hgb 12.3 GM/dL (10.7-15.3) 09/07/17 07:10 Hct 37.9 % (32.4-45.2) 09/07/17 07:10 MCV 88.9 fl (80-96) 09/07/17 07:10 MCH 28.8 pg (25.7-33.7) 09/07/17 07:10 MCHC 32.4 g/dl (32.0-36.0) 09/07/17 07:10 RDW 13.7 % (11.6-15.6) 09/07/17 07:10 Plt Count 118 K/MM3 (134-434) L 09/07/17 07:10 MPV 10.9 fl (7.5-11.1) 09/07/17 07:10 Absolute Neuts (auto) 3.0 # (42.8-82.8) L 09/02/17 14:20 Absolute Lymphs (auto) 2.0 (8-40) L 09/02/17 14:20 Absolute Monos (auto) 0.7 # (3.8-10.2) L 09/02/17 14:20 Absolute Eos (auto) 0.0 # (0-4.5) 09/02/17 14:20 Absolute Basos (auto) 0.1 # (0.1-1) 09/02/17 14:20 Neutrophils % 38.9 % (42.8-82.8) L 09/07/17 07:10 Lymphocytes % 48.4 % (8-40) H 09/07/17 07:10 Monocytes % 11.0 % (3.8-10.2) H 09/07/17 07:10 Eosinophils % 1.1 % (0-4.5) 09/07/17 07:10 Basophils % 0.6 % (0-2.0) 09/07/17 07:10 Sodium 140 mmol/L (136-145) 09/07/17 07:10 Potassium 3.4 mmol/L (3.5-5.1) L 09/07/17 07:10 Chloride 101 mmol/L (98-107) 09/07/17 07:10 Carbon Dioxide 34 mmol/L (21-32) H 09/07/17 07:10 Anion Gap 5 (8-16) L 09/07/17 07:10 BUN 1 mg/dL (7-18) L* 09/07/17 07:10 Creatinine 0.7 mg/dL (0.55-1.02) 09/07/17 07:10 Creat Clearance w eGFR > 60 (>60) 09/07/17 07:10 Random Glucose 119 mg/dL (74-106) H D 09/07/17 07:10 Lactic Acid 1.1 mmol/L (0.4-2.0) 09/02/17 14:20 Calcium 7.9 mg/dL (8.5-10.1) L 09/07/17 07:10 Phosphorus 2.8 mg/dL (2.5-4.9) 09/05/17 17:20 Magnesium 1.9 mg/dL (1.8-2.4) D 09/06/17 06:25 Total Bilirubin 0.6 mg/dL (0.2-1.0) D 09/07/17 07:10 AST 69 U/L (15-37) H 09/07/17 07:10 ALT 98 U/L (12-78) H 09/07/17 07:10 Alkaline Phosphatase 44 U/L (45-117) L 09/07/17 07:10 Troponin I < 0.02 ng/ml (0.00-0.05) 09/05/17 17:20 Total Protein 5.7 g/dl (6.4-8.2) L 09/07/17 07:10 Albumin 3.1 g/dl (3.4-5.0) L 09/07/17 07:10 Total Amylase 62 U/L (25-115) 09/07/17 07:10 Lipase 314 U/L (73-393) 09/08/17 09:04 Lipase improved Chopped diet Ambulate Anticoagulation Problem List - Problems (1) Pancreatitis Code(s): K85.90 - ACUTE PANCREATITIS WITHOUT NECROSIS OR INFECTION, UNSP Qualifiers: Chronicity: acute Pancreatitis type: other Acute pancreatitis complication: no infection or necrosis Qualified Code(s): K85.80 - Other acute pancreatitis without necrosis or infection (2) Portal vein thrombosis Code(s): I81 - PORTAL VEIN THROMBOSIS
[2017-09-08 16:50] LABS: HEMATOCRIT 36.1 % (32.4-45.2); HEMOGLOBIN 11.8 GM/dL (10.7-15.3); MCH 29.2 pg (25.7-33.7); MCHC 32.8 g/dl (32.0-36.0); MEAN CELL VOLUME 89.1 fl (80-96); MEAN PLT VOLUME 11.3 fl (7.5-11.1); PLATELET COUNT 117 K/MM3 (134-434); RBC 4.06 M/mm3 (3.60-5.2); RDW 13.5 % (11.6-15.6); WHITE BLOOD COUNT 3.8 K/mm3 (4.0-10.0)
[2017-09-09] MEDS: D5-LR+20 MEQ KCL - 20 MEQ/1,000 ML INFUS.BAG IV SCH ×4 (01:32→23:14)
[2017-09-09] MEDS: ENOXAPARIN NA (PORCINE) 100 MG/1 ML DISP.SYRIN SQ SCH ×2 (06:00→18:45)
[2017-09-09] MEDS: ONDANSETRON 4 MG/2 ML VIAL IVPB PRN ×2 (07:08→14:37)
[2017-09-09 08:49] LABS: BASO % 0.6 % (0-2.0); EOS % 2.3 % (0-4.5); HEMATOCRIT 38.4 % (32.4-45.2); HEMOGLOBIN 12.1 GM/dL (10.7-15.3); LYMPH % 47.1 % (8-40); MCH 28.2 pg (25.7-33.7); MCHC 31.6 g/dl (32.0-36.0); MEAN CELL VOLUME 89.2 fl (80-96); MEAN PLT VOLUME 10.6 fl (7.5-11.1); MONO % 9.4 % (3.8-10.2); NEUT % 40.6 % (42.8-82.8); PLATELET COUNT 113 K/MM3 (134-434); RDW 13.7 % (11.6-15.6); WHITE BLOOD COUNT 3.7 K/mm3 (4.0-10.0)
[2017-09-09 09:38] LABS: CHLORIDE 105 mmol/L (98-107); POTASSIUM 3.5 mmol/L (3.5-5.1); SODIUM 141 mmol/L (136-145)
[2017-09-09 09:50] LABS: ALBUMIN 2.9 g/dl (3.4-5.0); ALK PHOS 48 U/L (45-117); ANION GAP 7 (8-16); BILIRUBIN,TOTAL 0.4 mg/dL (0.2-1.0); CO2 29 mmol/L (21-32); CREATININE 0.7 mg/dL (0.55-1.02); GLUCOSE,RANDOM 111 mg/dL (74-106); SGOT/AST 63 U/L (15-37); SGPT/ALT 110 U/L (12-78); TOT PROT 5.4 g/dl (6.4-8.2)
--- NOTE | 2017-09-09 10:30 | PN ---
Progress Note, Physician Chief Complaint: Portal vein thrombosis History of Present Illness: NAD,in bed, self ambulatory Has not been able to tolerate PO intake, causes pain every time she eats Lipase elevated today Seen by GI sx and hematology GI consult appreciated on IVF pain management - Current Medication List Current Medications: Active Medications Amino Acids (Prosource No Carb Liquid Pkt) 30 ml PO BID@0800,1730 [facility] Last Admin: 09/08/17 16:49 Dose: Not Given Enoxaparin Sodium (Lovenox -) 100 mg SQ BID@0500,1700 [facility] Last Admin: 09/09/17 06:00 Dose: 100 mg Hydromorphone HCl (Dilaudid Injection -) 1 mg IVPB Q4H PRN PRN Reason: PAIN Dextrose/Lactated Ringer's (D5-Lr+20 Meq Kcl -) 20 meq in 1,000 mls @ 125 mls/ hr IV ASDIR [facility] Last Admin: 09/09/17 01:32 Dose: 125 mls/hr Ondansetron HCl (Zofran Injection) 4 mg IVPB Q4H PRN PRN Reason: NAUSEA Last Admin: 09/09/17 07:08 Dose: 4 mg Pantoprazole Sodium (Protonix Iv) 40 mg IVPUSH DAILY [facility] Last Admin: 09/08/17 09:30 Dose: 40 mg - Objective Vital Signs: Vital Signs Temperature 98.3 F 09/09/17 06:00 Pulse Rate 100 H 09/09/17 06:00 Respiratory Rate 20 09/09/17 06:00 Blood Pressure 126/77 09/09/17 06:00 O2 Sat by Pulse Oximetry (%) 98 09/08/17 21:00 Constitutional: Yes: Well Nourished, No Distress, Calm Labs: CBC, BMP 09/09/17 08:11 09/09/17 08:11 INR, PTT INR 1.38 (0.82-1.09) H 09/02/17 14:20 Problem List - Problems (1) Portal vein thrombosis Assessment/Plan: Lovenox BID -hematology ok with factor X inhibitors, if insurance approves, otherwise warfarin -would likely need AC for at least 6 months -Would leave thrombosis work up up to hematology Code(s): I81 - PORTAL VEIN THROMBOSIS (2) Pancreatitis Assessment/Plan: -seen by GI -EGD unremarkable IVF with Kcl Code(s): K85.90 - ACUTE PANCREATITIS WITHOUT NECROSIS OR INFECTION, UNSP Qualifiers: Chronicity: acute Pancreatitis type: other Acute pancreatitis complication: no infection or necrosis Qualified Code(s): K85.80 - Other acute pancreatitis without necrosis or infection (3) Morbid (severe) obesity due to excess calories Code(s): E66.01 - MORBID (SEVERE) OBESITY DUE TO EXCESS CALORIES (4) Hypokalemia Assessment/Plan: -improved IVF with KCl Code(s): E87.6 - HYPOKALEMIA (5) Thrombocytopenia Assessment/Plan: trending down HIT ab pending -Hematology on board Code(s): D69.6 - THROMBOCYTOPENIA, UNSPECIFIED Assessment/Plan see problem list
[2017-09-09 10:47] LABS: BLOOD UREA NITROGEN < 1 mg/dL (7-18)
[2017-09-09] MEDS: AMINO ACIDS/PROTEIN HYDROLYS 30 ML LIQUID.PKT PO SCH ×2 (11:22→18:45)
[2017-09-09] MEDS: PANTOPRAZOLE SODIUM 40 MG VIAL IVPUSH SCH (11:23)
--- NOTE | 2017-09-09 12:21 | PN ---
Progress Note (short form) - Note Progress Note: Hematology Progress note: Pt seen and examined feels better than yesterday. Tolerated some PO intake O/E: General: looks comfortable HEENT NCAT Lungs: CTA b/l cor:rrr LE: no Edema Last Vital Signs Temp Pulse Resp BP Pulse Ox 98.2 F 94 H 15 116/86 97 09/08/17 11:49 09/08/17 12:19 09/08/17 12:19 09/08/17 12:19 09/08/17 12:19 CBC, BMP 09/07/17 07:10 09/07/17 07:10 Current Medications Generic Name Dose Route Start Last Admin Trade Name Freq PRN Reason Stop Dose Admin Amino Acids 30 ml 09/07/17 08:00 09/08/17 08:03 Prosource No Carb Liquid Pkt PO Not Given BID@0800,1730 DESTINY Enoxaparin Sodium 100 mg 09/03/17 05:00 09/08/17 05:04 Lovenox - SQ Not Given BID@0500,1700 DESTINY Hydromorphone HCl 1 mg 09/08/17 14:23 Dilaudid Injection - IVPB Q4H PRN PAIN Dextrose/Lactated Ringer's 20 meq in 1,000 mls @ 125 mls/hr 09/06/17 14:15 14:19 D5-Lr+20 Meq Kcl - IV Not Given ASDIR DESTINY Ondansetron HCl 4 mg 09/03/17 15:11 09/07/17 20:59 Zofran Injection IVPB 4 mg Q4H PRN Administration NAUSEA Pantoprazole Sodium 40 mg 09/04/17 15:15 09/08/17 09:30 Protonix Iv IVPUSH 40 mg DAILY DESTINY Administration PVT: c/w lovenox full dose. xarelto when ready to be discharged and HIT ruled out. hypercoag w/u as an OP NEW onset Thrombocytopenia: down trend noted could be from acute illness/clot consumption ?occult infection, but no focality noted ordered HIT, called lab clarita , no result yet, less suspicion ( low 4T score) but crucial to rule out. for LE US to r/o DVT will follow closely
--- NOTE | 2017-09-09 12:33 | PN ---
Progress Note (short form) - Note Progress Note: Pain improved Tolerated some diet No vomiting Vital Signs Period Temp Pulse Resp BP Sys/Nguyễn Pulse Ox Last 24 Hr 97.7 F-98.3 F 93-100 20-20 115-136/64-80 98 Abd soft CBCD WBC 3.7 K/mm3 (4.0-10.0) L 09/09/17 08:11 RBC 4.30 M/mm3 (3.60-5.2) 09/09/17 08:11 Hgb 12.1 GM/dL (10.7-15.3) 09/09/17 08:11 Hct 38.4 % (32.4-45.2) 09/09/17 08:11 MCV 89.2 fl (80-96) 09/09/17 08:11 MCHC 31.6 g/dl (32.0-36.0) L 09/09/17 08:11 RDW 13.7 % (11.6-15.6) 09/09/17 08:11 Plt Count 113 K/MM3 (134-434) L 09/09/17 08:11 MPV 10.6 fl (7.5-11.1) 09/09/17 08:11 CMP Sodium 141 mmol/L (136-145) 09/09/17 08:11 Potassium 3.5 mmol/L (3.5-5.1) 09/09/17 08:11 Chloride 105 mmol/L (98-107) 09/09/17 08:11 Carbon Dioxide 29 mmol/L (21-32) 09/09/17 08:11 Anion Gap 7 (8-16) L 09/09/17 08:11 BUN < 1 mg/dL (7-18) L* 09/09/17 08:11 Creatinine 0.7 mg/dL (0.55-1.02) 09/09/17 08:11 Creat Clearance w eGFR > 60 (>60) 09/09/17 08:11 Calcium 8.0 mg/dL (8.5-10.1) L 09/09/17 08:11 Total Bilirubin 0.4 mg/dL (0.2-1.0) D 09/09/17 08:11 AST 63 U/L (15-37) H 09/09/17 08:11 ALT 110 U/L (12-78) H 09/09/17 08:11 Alkaline Phosphatase 48 U/L (45-117) 09/09/17 08:11 Total Protein 5.4 g/dl (6.4-8.2) L 09/09/17 08:11 Albumin 2.9 g/dl (3.4-5.0) L 09/09/17 08:11 Would like to go home if continues to tolerate diet Problem List - Problems (1) Pancreatitis Code(s): K85.90 - ACUTE PANCREATITIS WITHOUT NECROSIS OR INFECTION, UNSP Qualifiers: Chronicity: acute Pancreatitis type: other Acute pancreatitis complication: no infection or necrosis Qualified Code(s): K85.80 - Other acute pancreatitis without necrosis or infection (2) Portal vein thrombosis Code(s): I81 - PORTAL VEIN THROMBOSIS
[2017-09-09 13:04] LABS: AMYLASE 67 U/L (25-115)
--- NOTE | 2017-09-09 13:05 | PATH ---
Surgical Pathology Report Patient Name: LINDSEY BLANCAS [facility]. Rec. #: [id number] /Age/Gender: 1990 (Age: 27) / F Account: [id number] Location: [address] [place] [address]/[facility] Taken: 09/08/2017 Received: 09/08/2017 Reported: 09/09/2017 Physicians: Wilmer Hensley ACNP Specimen(s) Received A: BX 2ND JUNCTION OF DUODENUM B: BX ANTRUM AND BODY Clinical History Preoperative diagnosis: Abdominal pain Postoperative diagnosis: Same Final Diagnosis A. DUODENUM, SECOND PORTION, BIOPSY: DUODENAL MUCOSA WITHOUT SIGNIFICANT PATHOLOGIC FINDINGS. B. STOMACH, ANTRUM/BODY, BIOPSY: GASTRIC ANTRAL AND BODY MUCOSA WITH MINIMAL CHRONIC INFLAMMATION. IMMUNOHISTOCHEMICAL STAIN FOR H. PYLORI IS NEGATIVE. Electronically Signed Lupe Givens M.D. Gross Description A. Received in formalin, labeled "biopsy second portion of duodenum" are 2 aguirre, irregular portions of soft tissue averaging 0.3 cm. in greatest dimension. The specimens are submitted in toto in one cassette. B. Received in formalin, labeled "biopsy antrum/body" are 3 agiurre, irregular portions of soft tissue ranging from 0.3-0.4 cm. in greatest dimension. The specimens are submitted in toto in one cassette. 09/08/2017 [facility]09/08/2017
--- NOTE | 2017-09-09 13:24 | PN ---
Progress Note, Physician History of Present Illness: s/p EGD. no major events. Comfortable. Flat effect - Current Medication List Current Medications: Active Medications Amino Acids (Prosource No Carb Liquid Pkt) 30 ml PO BID@0800,1730 [facility] Last Admin: 09/09/17 11:22 Dose: Not Given Enoxaparin Sodium (Lovenox -) 100 mg SQ BID@0500,1700 [facility] Last Admin: 09/09/17 06:00 Dose: 100 mg Hydromorphone HCl (Dilaudid Injection -) 1 mg IVPB Q4H PRN PRN Reason: PAIN Dextrose/Lactated Ringer's (D5-Lr+20 Meq Kcl -) 20 meq in 1,000 mls @ 125 mls/ hr IV ASDIR [facility] Last Admin: 09/09/17 11:30 Dose: 125 mls/hr Ondansetron HCl (Zofran Injection) 4 mg IVPB Q4H PRN PRN Reason: NAUSEA Last Admin: 09/09/17 07:08 Dose: 4 mg - Objective Vital Signs: Vital Signs Temperature 98.3 F 09/09/17 06:00 Pulse Rate 100 H 09/09/17 06:00 Respiratory Rate 20 09/09/17 06:00 Blood Pressure 126/77 09/09/17 06:00 O2 Sat by Pulse Oximetry (%) 98 09/08/17 21:00 Constitutional: Yes: Well Nourished, No Distress, Calm Gastrointestinal: Yes: Normal Bowel Sounds, Soft. No: Tenderness, Epigastrium Neurological: Yes: Alert, Oriented Labs: CBC, BMP 09/09/17 08:11 09/09/17 08:11 INR, PTT INR 1.38 (0.82-1.09) H 09/02/17 14:20 Laboratory Results - last 24 hr 09/08/17 09/08/17 09/08/17 15:00 16:30 16:30 WBC 3.8 L RBC 4.06 Hgb 11.8 Hct 36.1 MCV 89.1 MCH 29.2 MCHC 32.8 RDW 13.5 Plt Count 117 L MPV 11.3 H Neutrophils % Lymphocytes % Monocytes % Eosinophils % Basophils % Sodium Potassium Chloride Carbon Dioxide Anion Gap BUN Creatinine Creat Clearance w eGFR Random Glucose Calcium Total Bilirubin AST ALT Alkaline Phosphatase Total Protein Albumin Total Amylase Lipase Vitamin B12 800 Serum Folate 9 09/09/17 09/09/17 09/09/17 08:11 08:11 12:26 WBC 3.7 L RBC 4.30 Hgb 12.1 Hct 38.4 MCV 89.2 MCH 28.2 MCHC 31.6 L RDW 13.7 Plt Count 113 L MPV 10.6 Neutrophils % 40.6 L Lymphocytes % 47.1 H Monocytes % 9.4 Eosinophils % 2.3 D Basophils % 0.6 Sodium 141 Potassium 3.5 Chloride 105 Carbon Dioxide 29 Anion Gap 7 L BUN < 1 L* Creatinine 0.7 Creat Clearance w eGFR > 60 Random Glucose 111 H Calcium 8.0 L Total Bilirubin 0.4 D AST 63 H ALT 110 H Alkaline Phosphatase 48 Total Protein 5.4 L Albumin 2.9 L Total Amylase Cancelled Lipase Cancelled Vitamin B12 Serum Folate Problem List - Problems (1) Pancreatitis Code(s): K85.90 - ACUTE PANCREATITIS WITHOUT NECROSIS OR INFECTION, UNSP Qualifiers: Chronicity: acute Pancreatitis type: other Acute pancreatitis complication: no infection or necrosis Qualified Code(s): K85.80 - Other acute pancreatitis without necrosis or infection (2) Portal vein thrombosis Code(s): I81 - PORTAL VEIN THROMBOSIS Assessment/Plan PVT. On lovenox, hematology following, consult noted. acute pancreatitis. BUN, Cr, Hgb, lipase normal Normal EGD Advance diet as tolerated
[2017-09-09 13:25] LABS: LIPASE 484 U/L (73-393)
[2017-09-09] MEDS ORDERED: METOCLOPRAMIDE HCL INJECTION 10 MG/2 ML VIAL IVPUSH PRN (18:37)
[2017-09-09] MEDS: METOCLOPRAMIDE HCL INJECTION 10 MG/2 ML VIAL IVPUSH SCH (20:44)
[2017-09-10] MEDS ORDERED: diazePAM 5 MG TABLET PO ONE (01:19)
--- NOTE | 2017-09-10 01:38 | HOSP ---
Subjective - Review of Symptoms Subjective: Paged because pt was going to leave [facility]. Pt agreed to speak to a doctor prior to leaving. Upon arriving pt explained how she wanted to leave because she felt like she was here for too long and didn't have any answers. Pt explained to me what she knew about her situation on how her platelets were dropping and how her pancreas "was swollen." Pt denies any cp/palpitations, headaches, visual disturbances, abdominal pain. Pt reports no nausea or vomiting this past day even with her bariatric diet. PE: Gen: Very anxious individual, alert, awake, oriented Lungs: CTA b/l Cards: Tachycardic normal rate, no murmur Ext: No edema noted. a/p Pt was extremely anxious, however I explained the risks to leaving. I stated how if I could help her anxiety would she feel okay to stay and here from her primary medical team. Pt agreed to this plan. Most likely panic attack unprovoked by any pathology --Valium 5mg PO once was administered to the patient upon reviewing pt had a diet and was tolerating it Santiago Dang DO - Internal Medicine PGY-1. Physical Examination Vital Signs: Vital Signs Temperature 98.4 F 09/09/17 21:00 Pulse Rate 94 H 09/09/17 21:00 Respiratory Rate 20 09/09/17 21:00 Blood Pressure 136/73 09/09/17 21:00 O2 Sat by Pulse Oximetry (%) 98 09/09/17 09:00 Labs: CBC, BMP 09/09/17 08:11 09/09/17 08:11
[2017-09-10] MEDS: METOCLOPRAMIDE HCL INJECTION 10 MG/2 ML VIAL IVPUSH SCH ×2 (01:43→09:44)
[2017-09-10] MEDS: ENOXAPARIN NA (PORCINE) 100 MG/1 ML DISP.SYRIN SQ SCH (05:48)
[2017-09-10 06:46] VITALS: BP 126/84; PULSE 106; TEMP 98.5
[2017-09-10 07:45] LABS: BASO % 0.4 % (0-2.0); EOS % 0.5 % (0-4.5); HEMATOCRIT 37.4 % (32.4-45.2); HEMOGLOBIN 12.1 GM/dL (10.7-15.3); LYMPH % 47.3 % (8-40); MCH 28.7 pg (25.7-33.7); MCHC 32.3 g/dl (32.0-36.0); MEAN CELL VOLUME 88.7 fl (80-96); MEAN PLT VOLUME 10.8 fl (7.5-11.1); MONO % 8.6 % (3.8-10.2); NEUT % 43.2 % (42.8-82.8); PLATELET COUNT 121 K/MM3 (134-434); RBC 4.22 M/mm3 (3.60-5.2); RDW 13.5 % (11.6-15.6); WHITE BLOOD COUNT 5.6 K/mm3 (4.0-10.0)
[2017-09-10] MEDS: AMINO ACIDS/PROTEIN HYDROLYS 30 ML LIQUID.PKT PO SCH (09:44)
--- NOTE | 2017-09-10 12:29 | HOSP ---
Subjective - Review of Symptoms Events since last encounter: called to see patient as RN was not able to reach Dr. Rosa . patient wanted to leave the hospital. chart reviewed, and I explained to patient, who was standing in hallway , the need to stay and get appropriate treatment for acute pancreatitis , and portal vein thrombosis including AC. the importance and the need for anticoagulation was explained to prevent expansion of thrombosis. She understands the risk of worsening pancreatitis, worsening thrombosis, and in worst case scenario . She stated she understood, and she wanted to spend the holidays with her family. the patient understands her medical condition and is capable of making decisions. She decided to leave AMA RN, instructed to try to reach Dr. Rosa again to inform him Physical Examination Vital Signs: Vital Signs Temperature 98.5 F 09/10/17 06:44 Pulse Rate 106 H 09/10/17 06:44 Respiratory Rate 20 09/10/17 09:00 Blood Pressure 126/84 09/10/17 06:44 O2 Sat by Pulse Oximetry (%) 98 09/10/17 09:00 Labs: CBC, BMP 09/10/17 07:15 09/09/17 08:11
[2017-09-13 10:08] LABS: DRVVT - 40.8 sec (0.0-47.0)
== END 2017-09-10 09:39 | disposition left against medical advice (07) | DRG 282 ==
LOC: JER 11:46 → JERBED 19:02 → J5S 21:38
PROVIDERS: ADMIT Family Medicine; ATTEND Family Medicine
PROC: 0DD68ZX Extraction of Stomach, Via Natural or Artificial Opening Endoscopic, Diagnostic (ICD-10-PCS; 2017-09-08)
PROC: 0DD98ZX Extraction of Duodenum, Via Natural or Artificial Opening Endoscopic, Diagnostic (ICD-10-PCS; principal; 2017-09-08 10:30)
DX: K85.90 Acute pancreatitis without necrosis or infection, unspecified (principal); I81 Portal vein thrombosis; I10 Essential (primary) hypertension; D69.6 Thrombocytopenia, unspecified; E87.6 Hypokalemia; E66.01 Morbid (severe) obesity due to excess calories; Z68.35 Body mass index [BMI] 35.0-35.9, adult; Z87.891 Personal history of nicotine dependence
CPT/HCPCS: 36415; 71020-TC; 74177-TC; 74183-TC; 76705-TC; 80053; 81003; 81015; 82150; 82272; 82607; 82746; 83605; 83690; 83735; 84100; 84484; 84703; 85025; 85027; 85610; 85613; 85730; 85732; 86022; 86850; 86900; 86901; 87040; 87086; 88305-TC; 93005; 93010; 93970-TC; 99283-25; Q9967

== ENCOUNTER 2017-09-10 14:30 | Emergency (ER) | payer OTHER ==
[2017-09-10 14:39] VITALS: BMI 34.2
--- NOTE | 2017-09-10 14:45 | PDOC ---
Attending Attestation - Resident Resident Name: Gilbert Jeronimo - HPI HPI: 09/10/17 15:42 Pt presents to the ED after leaving AMA requesting readmission to the hospital. Patient has a recent history of portal vein thrombosis after gastric sleeve placement and acute pancreatitis. Was admitted for the above complaints and left AMA today. Presents to the ED because she regretted leaving AMA and would like to continue her care. Denies complaints. - Physicial Exam PE: 09/10/17 15:44 Agree with resident exam. Patient is well appearing with non tender abdomen. - Medical Decision Making 09/10/17 15:46 Pt presents to the ED requesting to continue her care for portal vein thrombosis. Denies new complaints. Patient was treated for pancreatitis during her hospital stay which has now resolved. Case discussed with Dr. Valerio's CHIEF MECHANICAL OFFICER, who recommends discharging the patient. She will be followed as an outpatient by Dr. Tovar, and the CHIEF MECHANICAL OFFICER will prescribe xarelto.
--- NOTE | 2017-09-10 15:42 | PDOC ---
History of Present Illness - General Chief Complaint: Psychiatric Stated Complaint: ANXIETY Time Seen by Provider: 09/10/17 14:43 History Source: Patient - History of Present Illness Initial Comments: 09/10/17 16:03 This is a 27 year old female with hx of HTN and gastric sleeve 08/11/17, presented to the ED on 09/02/17 with epigastric pain and postprandial nausea. Admitted for pancreatitis, incidental find of non-occlusive thrombosis of the portal vein, placed on lovenox and Xarelto. Left AMA the hospital this morning complaining she wasn't getting enough answers on her condition. 09/10/17 16:07 09/10/17 16:13 Past History - Past Medical History Allergies/Adverse Reactions: Allergies Allergy/AdvReac Type Severity Reaction Status Date / Time No Known Allergies Allergy Verified 09/10/17 14:35 Home Medications: Ambulatory Orders Metoprolol Tartrate [Lopressor -] 50 mg PO DAILY 06/23/16 Cyclobenzaprine HCl [Flexeril -] 10 mg PO BID 08/09/17 Losartan Potassium [Cozaar -] 50 mg PO DAILY 08/09/17 Famotidine [Pepcid] 20 mg PO BID #60 tablet 08/11/17 Oxycodone HCl/Acetaminophen [Percocet 5-325 mg Tablet] 1 - 2 tab PO Q6H #28 tab MDD 4 08/11/17 Anemia: No Asthma: No Cancer: No Cardiac Disorders: Yes (SVT) CVA: No COPD: No CHF: No Dementia: No Diabetes: No GI Disorders: No Disorders: No HTN: No Hypercholesterolemia: No Liver Disease: No Seizures: No Thyroid Disease: No - Surgical History GI Surgery: Yes (gastric sleeve) - Immunization History Immunization Up to Date: No - Suicide/Smoking/Psychosocial Hx Smoking History: Never smoked Have you smoked in the past 12 months: No If you are a former smoker, when did you quit?: 2016 Hx Alcohol Use: No Drug/Substance Use Hx: No Substance Use Type: None Hx Substance Use Treatment: No Review of Systems - Review of Systems Able to Perform ROS?: Yes Is the patient limited Bulgarian proficient: No Constitutional: No: Symptoms Reported HEENTM: No: Symptoms Reported Respiratory: No: Symptoms reported Cardiac (ROS): No: Symptoms Reported ABD/GI: No: Symptoms Reported : No: Symptoms Reported Musculoskeletal: No: Symptoms Reported Integumentary: No: Symptoms Reported Neurological: No: Symptoms reported Psychiatric: Yes: Anxiety All Other Systems: Reviewed and Negative *Physical Exam - Vital Signs Last Vital Signs Temp Pulse Resp BP Pulse Ox 98.0 F 116 H 20 117/92 100 09/10/17 14:31 09/10/17 14:31 09/10/17 14:31 09/10/17 14:31 09/10/17 14:31 - Physical Exam General Appearance: Yes: Appropriately Dressed, Apparent Distress, Obese HEENT: positive: EOMI, PRIYA, Normal ENT Inspection Neck: negative: Tender Respiratory/Chest: positive: Lungs Clear, Normal Breath Sounds. negative: Chest Tender Cardiovascular: positive: Regular Rhythm, S1, S2, Tachycardia Gastrointestinal/Abdominal: positive: Normal Bowel Sounds, Soft. negative: Tender Extremity: positive: Normal Capillary Refill, Normal Inspection, Normal Range of Motion Integumentary: positive: Normal Color, Dry, Warm Neurologic: positive: Fully Oriented, Alert Medical Decision Making - Medical Decision Making 09/10/17 16:13 Spoke to JESUS Gregg who spoke with Dr. Tovar who will send prescription for Xarelto until patient sets up appointment with her. Platelet going up since yesterday. PAtient still Tachycardic, EKG pending and xanax administered for anxiety. 09/10/17 16:18 *DC/Admit/Observation/Transfer Diagnosis at time of Disposition: Anxiety - Discharge Dispostion Disposition: HOME Admit: No - Referrals Referrals: Liang Parish [Primary Care Provider] - Tiffanie Dior MD [Staff Physician] - - Patient Instructions Printed Discharge Instructions: Anxiety and Panic Attacks (Alternative Therapy) , DI for Panic Disorder Additional Instructions: Follow up with Dr. Dior as soon as you're to make appointment. director of sales support prescription for xarelto and use as directed. Come back to the ER for any new, worsening or concerning symptom. - Post Discharge Activity
[2017-09-10] MEDS ORDERED: ALPRAZolam 0.25 MG TABLET PO ONE (16:00)
[2017-09-10] MEDS ORDERED: ALPRAZolam 0.25 MG TABLET ONE (16:04)
[2017-09-10 16:11] VITALS: BP 125/83; PULSE 108; TEMP 98.3
--- NOTE | 2017-09-11 10:31 | EKG ---
Test Reason : Blood Pressure : / mmHG Vent. Rate : 081 BPM Atrial Rate : 081 BPM P-R Int : 132 ms QRS Dur : 090 ms QT Int : 376 ms P-R-T Axes : 039 004 030 degrees QTc Int : 436 ms SINUS RHYTHM WITH PREMATURE SUPRAVENTRICULAR COMPLEXES OTHERWISE NORMAL ECG WHEN COMPARED WITH ECG OF 02-SEP-2017 14:28, PREMATURE SUPRAVENTRICULAR COMPLEXES ARE NOW PRESENT Confirmed by MARCIE MARCOS, ANDREW ([id number]) on 09/11/2017 10:31:01 AM Referred By: Confirmed By:ANDREW JACK MD
== END 2017-09-10 16:28 | disposition home or self-care (01) ==
LOC: JER 14:30
DX: F06.4 Anxiety disorder due to known physiological condition (principal); K85.90 Acute pancreatitis without necrosis or infection, unspecified; I81 Portal vein thrombosis; Z79.01 Long term (current) use of anticoagulants
CPT/HCPCS: 93005; 93010; 99283-25

== ENCOUNTER 2017-09-20 20:39 | Emergency (ER) | payer OTHER ==
[2017-09-20 20:48] VITALS: BP 118/82; PULSE 108; TEMP 97.5; BMI 31.3
--- NOTE | 2017-09-20 20:51 | PDOC ---
Rapid Medical Evaluation Chief Complaint: Vomiting Blood Time Seen by Provider: 09/20/17 20:45 Medical Evaluation: Allergies Allergy/AdvReac Type Severity Reaction Status Date / Time No Known Allergies Allergy Verified 09/10/17 14:35 09/20/17 20:45 cc: vomiting blood two times today, streaking blood noted in vomitus. patient reports generalized abdominal pain. . history of vomiting since surgery. S/p Gastric sleeve surgery 07/2017 surgeon : Prince Walker PE: patient alertox3. generalized abdominal tenderness. Plan: cbc, cmp, type and screen, pt/ INR patient to the ED for further management of care. Discharge Disposition - Referrals Referrals: Liang Parish [Primary Care Provider] - - Patient Instructions - Post Discharge Activity
[2017-09-20 21:23] LABS: BASO % 0.7 % (0-2.0); EOS % 0.4 % (0-4.5); HEMOGLOBIN 14.8 GM/dL (10.7-15.3); LYMPH % 35.9 % (8-40); MCHC 32.2 g/dl (32.0-36.0); MEAN CELL VOLUME 90.1 fl (80-96); MEAN PLT VOLUME 9.2 fl (7.5-11.1); MONO % 5.7 % (3.8-10.2); NEUT % 57.3 % (42.8-82.8); PLATELET COUNT 252 K/MM3 (134-434); RBC 5.11 M/mm3 (3.60-5.2); RETICULOCYTES 1.05 % (0.5-1.5); WHITE BLOOD COUNT 8.1 K/mm3 (4.0-10.0)
[2017-09-20 21:37] LABS: INR 2.46 (0.82-1.09); PROTHROMBIN TIME (PATIENT) 27.8 SEC (9.98-11.88)
[2017-09-20 21:47] LABS: ALBUMIN 4.3 g/dl (3.4-5.0); ANION GAP 11 (8-16); BLOOD UREA NITROGEN 8 mg/dL (7-18); CALCIUM 9.7 mg/dL (8.5-10.1); CHLORIDE 104 mmol/L (98-107); CO2 24 mmol/L (21-32); CREATININE 0.8 mg/dL (0.55-1.02); GLUCOSE,RANDOM 87 mg/dL (74-106); POTASSIUM 3.7 mmol/L (3.5-5.1); SGOT/AST 20 U/L (15-37); SGPT/ALT 61 U/L (12-78); SODIUM 139 mmol/L (136-145)
[2017-09-20 21:49] LABS: ALK PHOS 63 U/L (45-117); BILIRUBIN,TOTAL 0.8 mg/dL (0.2-1.0); TOT PROT 8.1 g/dl (6.4-8.2)
[2017-09-20] MEDS ORDERED: ONDANSETRON 4 MG/2 ML VIAL IVPUSH ONE (23:05)
--- NOTE | 2017-09-20 23:05 | PDOC ---
History of Present Illness - General Chief Complaint: Vomiting Blood Stated Complaint: VOMITTING BLOOD Time Seen by Provider: 09/20/17 20:45 History Source: Patient - History of Present Illness Initial Comments: 09/21/17 00:23 27 year old female c/o vomiting and blood tinged vomitus today. patient had a gastric sleeve surgery 2 months , patient since surgery complains upper qudrant pain and occasional vomiting. denies fever/ chills Past History - Past Medical History Allergies/Adverse Reactions: Allergies Allergy/AdvReac Type Severity Reaction Status Date / Time No Known Allergies Allergy Verified 09/20/17 23:48 Home Medications: Ambulatory Orders Calcium Carbonate [Calcium] 500 mg PO DAILY 09/20/17 Cholecalciferol (Vitamin D3) [Dialyvite Vitamin D] 5,000 unit PO DAILY 09/20/17 Famotidine [Pepcid] 20 mg PO DAILY 09/20/17 Omeprazole Magnesium [Prilosec Otc] 20 mg PO DAILY 09/20/17 Rivaroxaban [Xarelto] 1 each PO DAILY 09/20/17 Anemia: No Asthma: No Cancer: No Cardiac Disorders: Yes (SVT) CVA: No COPD: No CHF: No Dementia: No Diabetes: No GI Disorders: No Disorders: No HTN: No Hypercholesterolemia: No Liver Disease: No Seizures: No Thyroid Disease: No - Surgical History GI Surgery: Yes (gastric sleeve) - Immunization History Immunization Up to Date: No - Suicide/Smoking/Psychosocial Hx Smoking History: Never smoked Have you smoked in the past 12 months: No If you are a former smoker, when did you quit?: 2016 Information on smoking cessation initiated: No Hx Alcohol Use: No Drug/Substance Use Hx: No Substance Use Type: Marijuana Hx Substance Use Treatment: No *Physical Exam - Vital Signs Last Vital Signs Temp Pulse Resp BP Pulse Ox 97.5 F L 108 H 18 118/82 100 09/20/17 20:46 09/20/17 20:46 09/20/17 20:46 09/20/17 20:46 09/20/17 20:46 ED Treatment Course - LABORATORY CBC & Chemistry Diagram: 09/20/17 21:07 09/20/17 21:07 - ADDITIONAL ORDERS Additional order review: Laboratory Results 09/20/17 09/20/17 09/20/17 21:07 21:07 21:07 PT with INR INR Sodium Potassium Chloride Carbon Dioxide Anion Gap BUN Creatinine Creat Clearance w eGFR Random Glucose Calcium Magnesium 1.8 Total Bilirubin AST ALT Alkaline Phosphatase Total Protein Albumin Serum , Qual Negative Blood Type B POSITIVE Antibody Screen Negative 09/20/17 09/20/17 21:07 21:07 PT with INR 27.80 H INR 2.46 H D Sodium 139 Potassium 3.7 Chloride 104 Carbon Dioxide 24 Anion Gap 11 BUN 8 D Creatinine 0.8 Creat Clearance w eGFR > 60 Random Glucose 87 D Calcium 9.7 D Magnesium Total Bilirubin 0.8 D AST 20 D ALT 61 D Alkaline Phosphatase 63 D Total Protein 8.1 D Albumin 4.3 D Serum , Qual Blood Type Antibody Screen 09/20/17 21:07 RBC 5.11 D MCV 90.1 MCHC 32.2 RDW 15.0 D MPV 9.2 D Neutrophils % 57.3 D Lymphocytes % 35.9 D Monocytes % 5.7 Eosinophils % 0.4 Basophils % 0.7 Medical Decision Making - Medical Decision Making 09/21/17 02:05 tolerated PO. will d/c home. patient has a GI appointment this am. *DC/Admit/Observation/Transfer Diagnosis at time of Disposition: Heartburn symptom Nausea and vomiting Qualifiers: Vomiting type: unspecified Vomiting Intractability: non-intractable Qualified Code(s): R11.2 - Nausea with vomiting, unspecified - Discharge Dispostion Disposition: HOME - Referrals Referrals: Liang Parish [Primary Care Provider] - - Patient Instructions Printed Discharge Instructions: Gastroesophageal Reflux Disease (Alternative Therapy) Additional Instructions: follow up with your nutrition helper today. continue hydration return to the ED if symptoms worsen. - Post Discharge Activity
[2017-09-20] MEDS ORDERED: SODIUM CHLORIDE 1,000 ML IV STA (23:08)
[2017-09-20] MEDS ORDERED: FAMOTIDINE 20 MG/50 ML IVPB 20 MG/50 ML MG IVPB ONE (23:11)
[2017-09-20] MEDS ORDERED: ONDANSETRON 4 MG/2 ML VIAL ONE (23:12)
[2017-09-20] MEDS ORDERED: FAMOTIDINE IV 20 MG/12 ML VIAL IVPUSH ONE (23:18)
--- NOTE | 2017-09-20 23:19 | PDOC ---
*Physical Exam - Vital Signs Last Vital Signs Temp Pulse Resp BP Pulse Ox 97.5 F L 108 H 18 118/82 100 09/20/17 20:46 09/20/17 20:46 09/20/17 20:46 09/20/17 20:46 09/20/17 20:46 ED Treatment Course - LABORATORY CBC & Chemistry Diagram: 09/20/17 21:07 09/20/17 21:07 - ADDITIONAL ORDERS Additional order review: Laboratory Results 09/20/17 09/20/17 09/20/17 21:07 21:07 21:07 PT with INR INR Sodium Potassium Chloride Carbon Dioxide Anion Gap BUN Creatinine Creat Clearance w eGFR Random Glucose Calcium Magnesium 1.8 Total Bilirubin AST ALT Alkaline Phosphatase Total Protein Albumin Serum , Qual Negative Blood Type B POSITIVE Antibody Screen Negative 09/20/17 09/20/17 21:07 21:07 PT with INR 27.80 H INR 2.46 H D Sodium 139 Potassium 3.7 Chloride 104 Carbon Dioxide 24 Anion Gap 11 BUN 8 D Creatinine 0.8 Creat Clearance w eGFR > 60 Random Glucose 87 D Calcium 9.7 D Magnesium Total Bilirubin 0.8 D AST 20 D ALT 61 D Alkaline Phosphatase 63 D Total Protein 8.1 D Albumin 4.3 D Serum , Qual Blood Type Antibody Screen 09/20/17 21:07 RBC 5.11 D MCV 90.1 MCHC 32.2 RDW 15.0 D MPV 9.2 D Neutrophils % 57.3 D Lymphocytes % 35.9 D Monocytes % 5.7 Eosinophils % 0.4 Basophils % 0.7 - Medications Given in the ED: ED Medications Discontinued Medications Generic Name Dose Route Start Last Admin Trade Name Leeann PRN Reason Stop Dose Admin Ondansetron HCl 4 mg 09/20/17 23:05 09/20/17 23:15 Zofran Injection IVPUSH 09/20/17 23:06 4 mg ONCE ONE Administration Medical Decision Making - Medical Decision Making 09/20/17 23:18 agree with care from JESUS Rodriguez *DC/Admit/Observation/Transfer Diagnosis at time of Disposition: Nausea and vomiting, Heartburn symptom - Discharge Dispostion Disposition: HOME Condition at time of disposition: Good - Referrals Referrals: Liang Parish [Primary Care Provider] - - Patient Instructions Printed Discharge Instructions: Gastroesophageal Reflux Disease (Alternative Therapy) Additional Instructions: follow up with your personnel worker today. continue hydration return to the ED if symptoms worsen. - Post Discharge Activity
== END 2017-09-21 02:57 | disposition home or self-care (01) ==
LOC: JER 20:39
PROC: 3E0337Z Introduction of Electrolytic and Water Balance Substance into Peripheral Vein, Percutaneous Approach (ICD-10-PCS; principal; 2017-09-20)
PROC: 3E033GC Introduction of Other Therapeutic Substance into Peripheral Vein, Percutaneous Approach (ICD-10-PCS; 2017-09-20)
PROC: 3E033GC Introduction of Other Therapeutic Substance into Peripheral Vein, Percutaneous Approach (ICD-10-PCS; 2017-09-20)
DX: R12 Heartburn (principal)
CPT/HCPCS: 36415; 80053; 83735; 84703; 85025; 85044; 85610; 86850; 86900; 86901; 96361; 96374; 96375; 99282-25

== ENCOUNTER 2017-10-24 11:58 | Inpatient (IN) | payer OTHER ==
[2017-10-24 12:03] VITALS: BMI 30.2
--- NOTE | 2017-10-24 12:31 | PDOC ---
History of Present Illness - General History Source: Patient - History of Present Illness Timing/Duration: other Associated Symptoms: reports: headaches, weakness. denies: chest pain, cough, diaphoresis, fever/chills, nausea/vomiting, seizure, shortness of breath, syncope <[place]Mary[place] - Last Filed: 10/24/17 16:48> <Elva Banks - Last Filed: 10/24/17 19:18> - General Chief Complaint: Lightheaded Stated Complaint: LIGHTHEADED Time Seen by Provider: 10/24/17 12:29 Past History - Past Medical History Anemia: No Asthma: No Cancer: No Cardiac Disorders: Yes (SVT) CVA: No COPD: No CHF: No Dementia: No Diabetes: No GI Disorders: No Disorders: No HTN: Yes Hypercholesterolemia: No Liver Disease: No Seizures: No Thyroid Disease: No - Surgical History GI Surgery: Yes (gastric sleeve) - Immunization History Immunization Up to Date: No - Suicide/Smoking/Psychosocial Hx Smoking History: Never smoked Have you smoked in the past 12 months: No If you are a former smoker, when did you quit?: 2016 Information on smoking cessation initiated: No Hx Alcohol Use: No Drug/Substance Use Hx: No Substance Use Type: None Hx Substance Use Treatment: No <Maryanne Glynn - Last Filed: 10/24/17 16:48> <Elva Banks - Last Filed: 10/24/17 19:18> - Past Medical History Allergies/Adverse Reactions: Allergies Allergy/AdvReac Type Severity Reaction Status Date / Time No Known Allergies Allergy Verified 10/24/17 12:04 Home Medications: Ambulatory Orders Calcium Carbonate [Calcium] 500 mg PO DAILY 09/20/17 Cholecalciferol (Vitamin D3) [Dialyvite Vitamin D] 5,000 unit PO DAILY 09/20/17 Famotidine [Pepcid] 20 mg PO BID 09/20/17 Omeprazole Magnesium [Prilosec Otc] 40 mg PO DAILY 09/20/17 Dicyclomine HCl [Bentyl -] 20 mg PO QID PRN 10/24/17 Losartan Potassium 50 mg PO DAILY 10/24/17 Metoprolol Succinate [Toprol Xl] 25 mg PO DAILY 10/24/17 Rivaroxaban [Xarelto -] 20 mg PO DAILY 10/24/17 Sennosides [Senna] 8.6 mg PO HS PRN 10/24/17 Review of Systems - Review of Systems Constitutional: No: Chills, Fever Respiratory: No: Shortness of Breath Cardiac (ROS): No: Chest Pain, Palpitations ABD/GI: No: Nausea, Vomiting Neurological: Yes: Headache, Numbness, Tingling, Weakness, Dizziness <Maryanne Glynn - Last Filed: 10/24/17 16:48> *Physical Exam - Vital Signs Last Vital Signs Temp Pulse Resp BP Pulse Ox 97.9 F 110 H 18 125/70 100 10/24/17 12:00 10/24/17 12:00 10/24/17 12:00 10/24/17 12:00 10/24/17 12:00 - Physical Exam General Appearance: Yes: Appropriately Dressed. No: Apparent Distress HEENT: positive: Normal Voice Neck: positive: Supple Respiratory/Chest: positive: Lungs Clear, Normal Breath Sounds. negative: Respiratory Distress Cardiovascular: positive: Regular Rate, S1, S2 Gastrointestinal/Abdominal: positive: Soft. negative: Tender Integumentary: positive: Dry, Warm Neurologic: positive: technical support technician II-XII NML intact, Fully Oriented, Alert, Normal Mood/ Affect, Normal Response, Finger to Nose, Other (Unable to lift b/l LE off the stretdher or ambulate in ED, upper ext strength intact b/l and no upper ext drift). negative: Facial Droop, Confused, Disoriented <Maryanne Glynn - Last Filed: 10/24/17 16:48> - Vital Signs Last Vital Signs Temp Pulse Resp BP Pulse Ox 98.7 F 90 18 110/85 100 10/24/17 18:30 10/24/17 18:30 10/24/17 18:30 10/24/17 18:30 10/24/17 12:00 <Elva Banks - Last Filed: 10/24/17 19:18> ED Treatment Course - LABORATORY CBC & Chemistry Diagram: 10/24/17 14:00 10/24/17 14:00 <Maryanne Glynn - Last Filed: 10/24/17 16:48> - LABORATORY CBC & Chemistry Diagram: 10/24/17 14:00 10/24/17 14:00 - ADDITIONAL ORDERS Additional order review: Laboratory Results 10/24/17 10/24/17 10/24/17 14:00 14:00 14:00 PT with INR 32.30 H INR 2.86 H Sodium 141 Potassium 4.9 Chloride 104 Carbon Dioxide 28 Anion Gap 9 BUN 13 Creatinine 0.8 Creat Clearance w eGFR > 60 Random Glucose 88 Calcium 9.8 Total Bilirubin 0.9 AST 47 H ALT 71 Alkaline Phosphatase 56 Total Protein 7.4 Albumin 3.8 Lipase 842 H Blood Type B POSITIVE Antibody Screen Negative 10/24/17 14:00 RBC 5.00 MCV 90.1 MCHC 32.3 RDW 16.2 H MPV 9.1 Neutrophils % 71.7 D Lymphocytes % 19.7 D Monocytes % 7.5 Eosinophils % 0.4 Basophils % 0.7 <Elva Banks - Last Filed: 10/24/17 19:18> Medical Decision Making - Medical Decision Making 10/24/17 12:41 27-year-old female, history of hypertension, status post gastric sleeve 2016, C/B PVT, on xarelto, on calcium supplements, pancreatitis, denies ETOH use , p/w a constellation of symptoms including diffuse numbness with severe weakness to bilateral lower extremity and states she has not been able to ambulate for several days. Also complaining of lidia-oral tingling with dizziness, vague headache and possible blurry vision. She reports that since her gastric sleeve surgery, she has had intermittent diffuse weakness that has gradually worsened. No slurred speech, nausea, vomiting, fever, abdominal pain , change in bowel movements, easy bleeding or bruising, mood changes or periods of confusion. See exam Possible electrolyte abnormality (i.e B12 or folic acid deficiency given recent weight loss surgery) vs possibly MS, less likely CVA -labs -CT head -IVF -neuro c/s -anticipate admission 10/24/17 14:[address] Marques of neurology, who recommends MRI of brain without contrast to look for evidence of demyelinating disease. States will see patient in the a.m. 10/24/17 14:05 10/24/17 14:09 Case d/w Dr Lawrence, who is covering for patient's PMD, Dr. Parish, agrees with admission for workup 10/24/17 16:49 Dr Walker at bedside evaluating pt <Xiomara GlynnCherry - Last Filed: 10/24/17 16:48> *DC/Admit/Observation/Transfer - Discharge Dispostion Admit: Yes <RenardMaryanne - Last Filed: 10/24/17 16:48> - Attestations Physician Attestion: I reviewed the case with the mid-level practitioner and agree with the mid- level practitioner's assessment, diagnosis and disposition. <Elva Banks - Last Filed: 10/24/17 19:18> Diagnosis at time of Disposition: Unable to ambulate Lower extremity weakness Qualifiers: Laterality: bilateral Qualified Code(s): R29.898 - Other symptoms and signs involving the musculoskeletal system - Discharge Dispostion Condition at time of disposition: Fair
[2017-10-24 14:05] LABS: BASO % 0.7 % (0-2.0); EOS % 0.4 % (0-4.5); HEMOGLOBIN 14.5 GM/dL (10.7-15.3); LYMPH % 19.7 % (8-40); MCH 29.1 pg (25.7-33.7); MCHC 32.3 g/dl (32.0-36.0); MEAN CELL VOLUME 90.1 fl (80-96); MEAN PLT VOLUME 9.1 fl (7.5-11.1); MONO % 7.5 % (3.8-10.2); NEUT % 71.7 % (42.8-82.8); PLATELET COUNT 228 K/MM3 (134-434); RDW 16.2 % (11.6-15.6); WHITE BLOOD COUNT 9.1 K/mm3 (4.0-10.0)
[2017-10-24 14:30] LABS: INR 2.86 (0.82-1.09); PROTHROMBIN TIME (PATIENT) 32.3 SEC (9.98-11.88)
[2017-10-24 14:35] LABS: ALBUMIN 3.8 g/dl (3.4-5.0); ANION GAP 9 (8-16); BLOOD UREA NITROGEN 13 mg/dL (7-18); CALCIUM 9.8 mg/dL (8.5-10.1); CHLORIDE 104 mmol/L (98-107); CO2 28 mmol/L (21-32); CREATININE 0.8 mg/dL (0.55-1.02); GLUCOSE,RANDOM 88 mg/dL (74-106); SODIUM 141 mmol/L (136-145)
[2017-10-24 14:36] LABS: ALK PHOS 56 U/L (45-117); BILIRUBIN,TOTAL 0.9 mg/dL (0.2-1.0); SGPT/ALT 71 U/L (12-78); TOT PROT 7.4 g/dl (6.4-8.2)
[2017-10-24 14:39] LABS: LIPASE 842 U/L (73-393); POTASSIUM 4.9 mmol/L (3.5-5.1); SGOT/AST 47 U/L (15-37)
[2017-10-24] MEDS ORDERED: ACETAMINOPHEN 325 MG TABLET (FP) PO PRN (16:28)
[2017-10-24] MEDS: RIVAROXABAN 20 MG TABLET PO SCH (18:53)
--- NOTE | 2017-10-24 21:17 | CONSULT ---
Consult Consult Specialty:: Surgery Reason for Consultation:: Weakness, numbness, tingling in bilateral lower extremities, upper extremities and perioral region - History Source History Provided By: Patient, Family Member, Medical Record Limitations to Obtaining History: No Limitations - Past Medical History Cardio/Vascular: Yes: HTN ...LMP: 07/11/17 - Past Surgical History Past Surgical History: Yes: Bariatric Surgery (Sleeve gastrectomy) - Alcohol/Substance Use Hx Alcohol Use: No History of Substance Use: reports: None - Smoking History Smoking history: Never smoked Have you smoked in the past 12 months: No If you are a former smoker, when did you quit?: 2016 - Social History ADL: Independent 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 Home Medications - Allergies Allergies/Adverse Reactions: Allergies Allergy/AdvReac Type Severity Reaction Status Date / Time No Known Allergies Allergy Verified 10/24/17 12:04 - Home Medications Home Medications: Ambulatory Orders Calcium Carbonate [Calcium] 500 mg PO DAILY 09/20/17 Cholecalciferol (Vitamin D3) [Dialyvite Vitamin D] 5,000 unit PO DAILY 09/20/17 Famotidine [Pepcid] 20 mg PO BID 09/20/17 Omeprazole Magnesium [Prilosec Otc] 40 mg PO DAILY 09/20/17 Dicyclomine HCl [Bentyl -] 20 mg PO QID PRN 10/24/17 Losartan Potassium 50 mg PO DAILY 10/24/17 Metoprolol Succinate [Toprol Xl] 25 mg PO DAILY 10/24/17 Rivaroxaban [Xarelto -] 20 mg PO DAILY 10/24/17 Sennosides [Senna] 8.6 mg PO HS PRN 10/24/17 Review of Systems - Review of Systems Constitutional: denies: Chills, Fever Neck: reports: No Symptoms Cardiovascular: denies: Chest Pain Respiratory: denies: Cough Gastrointestinal: denies: Abdominal Pain Neurological: reports: Numbness, Parasthesia, Unsteady Gait, Weakness Pain Intensity: 2 Physical Exam Vital Signs: Vital Signs Temperature 98.7 F 10/24/17 18:30 Pulse Rate 90 10/24/17 18:30 Respiratory Rate 18 10/24/17 18:30 Blood Pressure 110/85 10/24/17 18:30 O2 Sat by Pulse Oximetry (%) 100 10/24/17 12:00 Constitutional: Yes: Calm Cardiovascular: Yes: WNL Respiratory: No: Regular Gastrointestinal: No: Soft, Distention, Tenderness, Rebound Neurological: Yes: Alert, Oriented Labs: CBC, BMP 10/24/17 14:00 10/24/17 14:00 Problem List - Problems (1) Lower extremity weakness Code(s): R29.898 - OTH SYMPTOMS AND SIGNS INVOLVING THE MUSCULOSKELETAL SYSTEM Qualifiers: Laterality: bilateral Qualified Code(s): R29.898 - Other symptoms and signs involving the musculoskeletal system (2) Unable to ambulate Code(s): R26.2 - DIFFICULTY IN WALKING, NOT ELSEWHERE CLASSIFIED Assessment/Plan 27 female presents for bilateral lower extremity, upper extremity and perioral tingling, difficulty walking, and numbness and tingling in her lower extremity > upper extremity She states her symptoms started approximately 1 week ago Was ambulating and tolerating diet well Developed weakness, numbness and tingling in her lower extremities with difficulty ambulating Also, developed symptoms to a lesser extent in her bilateral upper extremities States she was not having any abdominal pain or symptoms Has a history of disc herniations Also, noted to have an elevated lipase level- explained that she needs to see a pancreatic/hepatobiliary specialist She has had recurrent episodes of pancreatitis and and was noted to have pancreatic divisum in the past On Xarelto; Has not seen insole presser for hypercoaguable workup- explained to her the importance of following up Neurology consult Vitamin levels ordered
[2017-10-25 04:47] LABS: HCG,QUALITATIVE URINE NEGATIVE
[2017-10-25 05:49] LABS: URINE APPEARANCE CLEAR; URINE COLOR YELLOW; URINE GLUCOSE (UA) NEGATIVE (NEGATIVE)
[2017-10-25 05:50] LABS: URINE BILIRUBIN NEGATIVE (NEGATIVE); URINE BLOOD 1+ (NEGATIVE); URINE KETONE TRACE (NEGATIVE); URINE LEUK ESTERASE NEGATIVE (NEGATIVE); URINE NITRITE NEGATIVE (NEGATIVE); URINE PROTEIN 1+ (NEGATIVE); URINE UROBILINOGEN NORMAL mg/dL (0.2-1.0)
[2017-10-25 05:51] LABS: EPI CELLS RARE /HPF (FEW); URINE HYALINE CAST 7 /lpf; URINE MUCUS MANY
[2017-10-25 07:40] LABS: HEMATOCRIT 40.4 % (32.4-45.2); HEMOGLOBIN 13.1 GM/dL (10.7-15.3); MCH 29.3 pg (25.7-33.7); MCHC 32.5 g/dl (32.0-36.0); MEAN PLT VOLUME 8.8 fl (7.5-11.1); PLATELET COUNT 192 K/MM3 (134-434); RBC 4.48 M/mm3 (3.60-5.2); RDW 16.4 % (11.6-15.6); WHITE BLOOD COUNT 6.5 K/mm3 (4.0-10.0)
[2017-10-25 08:19] LABS: ALBUMIN 3.5 g/dl (3.4-5.0); ALK PHOS 49 U/L (45-117); ANION GAP 7 (8-16); BILIRUBIN,TOTAL 0.8 mg/dL (0.2-1.0); BLOOD UREA NITROGEN 14 mg/dL (7-18); CALCIUM 8.6 mg/dL (8.5-10.1); CHLORIDE 106 mmol/L (98-107); CHOLESTEROL 139 mg/dL (50-200); CO2 27 mmol/L (21-32); CREATININE 0.7 mg/dL (0.55-1.02); GLUCOSE,RANDOM 79 mg/dL (74-106); HDL CHOLESTEROL 34 mg/dL (40-60); LDL CHOLESTEROL (ONLY SJRH) 99 mg/dL (5-100); POTASSIUM 4.2 mmol/L (3.5-5.1); SGOT/AST 28 U/L (15-37); SGPT/ALT 56 U/L (12-78); SODIUM 140 mmol/L (136-145); TOT PROT 6.3 g/dl (6.4-8.2); TRIGLYCERIDES 90 mg/dL (35-160)
[2017-10-25] MEDS: PANTOPRAZOLE 40 MG TABLET (FP) PO SCH (10:08)
--- NOTE | 2017-10-25 10:21 | CONSULT ---
Consult - text type - Consultation Consultation Note: Neurology History of Present Illness 27-year-old female, history of hypertension, status post gastric sleeve 2016, C/B PVT, on xarelto, on calcium supplements, pancreatitis, denies ETOH use , p/w a constellation of symptoms including diffuse numbness with severe weakness to bilateral lower extremity and states she has not been able to ambulate for several days. Also complaining of lidia-oral tingling with dizziness, vague headache and possible blurry vision. She reports that since her gastric sleeve surgery, she has had intermittent diffuse weakness that has gradually worsened. No slurred speech, nausea, vomiting, fever, abdominal pain , change in bowel movements, easy bleeding or bruising, mood changes or periods of confusion. She completed MRI brain and no significant abnormalities noted. She reports leg numbness in the past was helped by gabapentin and will start this for her. Past History - Past Medical History Anemia: No Asthma: No Cancer: No Cardiac Disorders: Yes (SVT) CVA: No COPD: No CHF: No Dementia: No Diabetes: No GI Disorders: No Disorders: No HTN: Yes Hypercholesterolemia: No Liver Disease: No Seizures: No Thyroid Disease: No - Surgical History GI Surgery: Yes (gastric sleeve) - Immunization History Immunization Up to Date: No - Suicide/Smoking/Psychosocial Hx Smoking History: Never smoked Have you smoked in the past 12 months: No If you are a former smoker, when did you quit?: 2016 Information on smoking cessation initiated: No Hx Alcohol Use: No Drug/Substance Use Hx: No Substance Use Type: None Hx Substance Use Treatment: No - Past Medical History Allergies/Adverse Reactions: Allergies Allergy/AdvReac Type Severity Reaction Status Date / Time No Known Allergies Allergy Verified 10/24/17 12:04 Home Medications: Ambulatory Orders Calcium Carbonate [Calcium] 500 mg PO DAILY 09/20/17 Cholecalciferol (Vitamin D3) [Dialyvite Vitamin D] 5,000 unit PO DAILY 09/20/17 Famotidine [Pepcid] 20 mg PO BID 09/20/17 Omeprazole Magnesium [Prilosec Otc] 40 mg PO DAILY 09/20/17 Dicyclomine HCl [Bentyl -] 20 mg PO QID PRN 10/24/17 Losartan Potassium 50 mg PO DAILY 10/24/17 Metoprolol Succinate [Toprol Xl] 25 mg PO DAILY 10/24/17 Rivaroxaban [Xarelto -] 20 mg PO DAILY 10/24/17 Sennosides [Senna] 8.6 mg PO HS PRN 10/24/17 Review of Systems - Review of Systems Constitutional: No: Chills, Fever Respiratory: No: Shortness of Breath Cardiac (ROS): No: Chest Pain, Palpitations ABD/GI: No: Nausea, Vomiting Neurological: Yes: Headache, Numbness, Tingling, Weakness, Dizziness *Physical Exam - Vital Signs Last Vital Signs Temp Pulse Resp BP Pulse Ox 97.9 F 110 H 18 125/70 100 10/24/17 12:00 10/24/17 12:00 10/24/17 12:00 10/24/17 12:00 10/24/17 12:00 - Physical Exam General Appearance: Yes: Appropriately Dressed. No: Apparent Distress HEENT: positive: Normal Voice Neck: positive: Supple Respiratory/Chest: positive: Lungs Clear, Normal Breath Sounds. negative: Respiratory Distress Cardiovascular: positive: Regular Rate, S1, S2 Gastrointestinal/Abdominal: positive: Soft. negative: Tender Integumentary: positive: Dry, Warm Neurologic: meat boner and slicer II-XII NML intact, Fully Oriented, Alert, Normal Mood/Affect, Normal Response, Finger to Nose, lifts B/L LE off bed but gives way, sensory slightly diminished in lower ext. gait deferred Laboratory Results 10/24/17 10/24/17 10/24/17 14:00 14:00 14:00 PT with INR 32.30 H INR 2.86 H Sodium 141 Potassium 4.9 Chloride 104 Carbon Dioxide 28 Anion Gap 9 BUN 13 Creatinine 0.8 Creat Clearance w eGFR > 60 Random Glucose 88 Calcium 9.8 Total Bilirubin 0.9 AST 47 H ALT 71 Alkaline Phosphatase 56 Total Protein 7.4 Albumin 3.8 Lipase 842 H Blood Type B POSITIVE Antibody Screen Negative 10/24/17 14:00 RBC 5.00 MCV 90.1 MCHC 32.3 RDW 16.2 H MPV 9.1 Neutrophils % 71.7 D Lymphocytes % 19.7 D Monocytes % 7.5 Eosinophils % 0.4 Basophils % 0.7 MRI brain reviewed Plan 27-year-old female, history of hypertension, status post gastric sleeve 2016, C/B PVT, on xarelto, on calcium supplements, pancreatitis, denies ETOH use , p/w a constellation of symptoms including diffuse numbness with severe weakness to bilateral lower extremity and states she has not been able to ambulate for several days. Also complaining of lidia-oral tingling with dizziness, vague headache and possible blurry vision. She reports that since her gastric sleeve surgery, she has had intermittent diffuse weakness that has gradually worsened. No slurred speech, nausea, vomiting, fever, abdominal pain , change in bowel movements, easy bleeding or bruising, mood changes or periods of confusion. She completed MRI brain and no significant abnormalities noted. She reports leg numbness in the past was helped by gabapentin and will start this for her. Recommend physcial therapy, may benefit from short term rehab. Follow up labs, vitamin levels, Dr. Walker note reviewed. Neurologically no structural abnormality noted on brain. If desired, could pursue MRI L spine though her constellation of symptoms are beyond just L spine/lower extremities.
--- NOTE | 2017-10-25 10:49 | HP ---
Admitting History and Physical - Primary Care Physician PCP: Liang Parish - Admission Chief Complaint: leg numbess and weakness History of Present Illness: 27-year-old female, history of hypertension, status post gastric sleeve 2016, on xarelto, on calcium supplements, pancreatitis, denies ETOH use, p/w a constellation of symptoms including diffuse numbness with severe weakness to bilateral lower extremity and states she has not been able to ambulate for several days. Also complaining of lidia-oral tingling with dizziness, vague headache and possible blurry vision. She reports that since her gastric sleeve surgery, she has had intermittent diffuse weakness that has gradually worsened. No slurred speech, nausea, vomiting, fever, abdominal pain, change in bowel movements, easy bleeding or bruising, mood changes or periods of confusion. She completed MRI brain and no significant abnormalities noted. 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 Home Medications - Allergies Allergies/Adverse Reactions: Allergies Allergy/AdvReac Type Severity Reaction Status Date / Time No Known Allergies Allergy Verified 10/24/17 12:04 - Home Medications Home Medications: Ambulatory Orders Calcium Carbonate [Calcium] 500 mg PO DAILY 09/20/17 Cholecalciferol (Vitamin D3) [Dialyvite Vitamin D] 5,000 unit PO DAILY 09/20/17 Famotidine [Pepcid] 20 mg PO BID 09/20/17 Omeprazole Magnesium [Prilosec Otc] 40 mg PO DAILY 09/20/17 Dicyclomine HCl [Bentyl -] 20 mg PO QID PRN 10/24/17 Losartan Potassium 50 mg PO DAILY 10/24/17 Metoprolol Succinate [Toprol Xl] 25 mg PO DAILY 10/24/17 Rivaroxaban [Xarelto -] 20 mg PO DAILY 10/24/17 Sennosides [Senna] 8.6 mg PO HS PRN 10/24/17 Review of Systems - Review of Systems Musculoskeletal: reports: Muscle Weakness Physical Examination Vital Signs: Vital Signs Temperature 98.4 F 10/25/17 10:24 Pulse Rate 80 10/25/17 10:24 Respiratory Rate 20 10/25/17 10:24 Blood Pressure 120/76 10/25/17 10:24 O2 Sat by Pulse Oximetry (%) 100 10/24/17 12:00 Constitutional: Yes: Calm Cardiovascular: Yes: Regular Rate and Rhythm, S1, S2 Respiratory: Yes: CTA Bilaterally Gastrointestinal: Yes: Normal Bowel Sounds, Soft Edema: No Neurological: Yes: Alert, Oriented, Other (decreased sensation on both legs) Labs: CBC, BMP 10/25/17 06:00 10/25/17 07:15 Imaging - Results Cat Scan: Report Reviewed (normal CT scan) MRI: Report Reviewed (negative) Problem List - Problems (1) H/O gastric bypass Assessment/Plan: s/p gastric sleeve now having numbness symptoms check vitamin levels PMR neuro consult appreicated started on neurontin Code(s): Z98.84 - BARIATRIC SURGERY STATUS (2) Lower extremity weakness Assessment/Plan: MRI and CT scan negative started on gabapentin Code(s): R29.898 - OTH SYMPTOMS AND SIGNS INVOLVING THE MUSCULOSKELETAL SYSTEM Qualifiers: Laterality: bilateral Qualified Code(s): R29.898 - Other symptoms and signs involving the musculoskeletal system (3) Unable to ambulate Assessment/Plan: r/o vitamin deficiency neuro and surgery saw the patient Code(s): R26.2 - DIFFICULTY IN WALKING, NOT ELSEWHERE CLASSIFIED (4) Pancreatitis Assessment/Plan: h/o pancreatitis now elevated lipase says she saw dr reynolds in past will have him see patient Code(s): K85.90 - ACUTE PANCREATITIS WITHOUT NECROSIS OR INFECTION, UNSP Qualifiers: Chronicity: acute Pancreatitis type: other Acute pancreatitis complication: no infection or necrosis Qualified Code(s): K85.80 - Other acute pancreatitis without necrosis or infection (5) Portal vein thrombosis Assessment/Plan: on xarelto heme follow up Code(s): I81 - PORTAL VEIN THROMBOSIS
--- NOTE | 2017-10-25 11:23 | PN ---
Progress Note (short form) - Note Progress Note: No new events On diet and tolerating Lipase level decreasing No abdominal pain Still with lower extremity weakness Vital Signs Period Temp Pulse Resp BP Sys/Nguyễn Pulse Ox Last 24 Hr 97.9 F-98.7 F 80-110 18-20 110-131/70-86 100 Abd soft, NT CBC,CMP WBC 6.5 K/mm3 (4.0-10.0) 10/25/17 06:00 RBC 4.48 M/mm3 (3.60-5.2) 10/25/17 06:00 Hgb 13.1 GM/dL (10.7-15.3) 10/25/17 06:00 Hct 40.4 % (32.4-45.2) 10/25/17 06:00 MCV 90.0 fl (80-96) 10/25/17 06:00 MCH 29.3 pg (25.7-33.7) 10/25/17 06:00 MCHC 32.5 g/dl (32.0-36.0) 10/25/17 06:00 RDW 16.4 % (11.6-15.6) H 10/25/17 06:00 Plt Count 192 K/MM3 (134-434) 10/25/17 06:00 MPV 8.8 fl (7.5-11.1) 10/25/17 06:00 Neutrophils % 71.7 % (42.8-82.8) D 10/24/17 14:00 Lymphocytes % 19.7 % (8-40) D 10/24/17 14:00 Monocytes % 7.5 % (3.8-10.2) 10/24/17 14:00 Eosinophils % 0.4 % (0-4.5) 10/24/17 14:00 Basophils % 0.7 % (0-2.0) 10/24/17 14:00 ESR 7 mm/hr (0-20) 10/24/17 20:30 Sodium 140 mmol/L (136-145) 10/25/17 07:15 Potassium 4.2 mmol/L (3.5-5.1) 10/25/17 07:15 Chloride 106 mmol/L (98-107) 10/25/17 07:15 Carbon Dioxide 27 mmol/L (21-32) 10/25/17 07:15 Anion Gap 7 (8-16) L 10/25/17 07:15 BUN 14 mg/dL (7-18) 10/25/17 07:15 Creatinine 0.7 mg/dL (0.55-1.02) 10/25/17 07:15 Creat Clearance w eGFR > 60 (>60) 10/25/17 07:15 Random Glucose 79 mg/dL (74-106) 10/25/17 07:15 Hemoglobin A1c % 5.2 % (4.8-6.0) 10/24/17 19:00 Calcium 8.6 mg/dL (8.5-10.1) 10/25/17 07:15 Total Bilirubin 0.8 mg/dL (0.2-1.0) 10/25/17 07:15 AST 28 U/L (15-37) 10/25/17 07:15 ALT 56 U/L (12-78) 10/25/17 07:15 Alkaline Phosphatase 49 U/L (45-117) 10/25/17 07:15 Total Protein 6.3 g/dl (6.4-8.2) L 10/25/17 07:15 Albumin 3.5 g/dl (3.4-5.0) 10/25/17 07:15 Triglycerides 90 mg/dL (35-160) 10/25/17 07:15 Cholesterol 139 mg/dL (50-200) 10/25/17 07:15 Total LDL Cholesterol 99 mg/dL (5-100) 10/25/17 07:15 HDL Cholesterol 34 mg/dL (40-60) L 10/25/17 07:15 Lipase 645 U/L (73-393) H 10/25/17 07:15 Vitamin B12 638 pg/ml (180-914) 10/25/17 06:00 Serum Folate 14 ng/ml (3.1-17.5) 10/24/17 16:20 Vitamin levels pending Neurology following Problem List - Problems (1) Lower extremity weakness Code(s): R29.898 - OT SYMPTOMS AND SIGNS INVOLVING THE MUSCULOSKELETAL SYSTEM Qualifiers: Qualified Code(s): R29.898 - Other symptoms and signs involving the musculoskeletal system (2) Unable to ambulate Code(s): R26.2 - DIFFICULTY IN WALKING, NOT ELSEWHERE CLASSIFIED
--- NOTE | 2017-10-25 11:25 | PN ---
Progress Note (short form) - Note Progress Note: Hematology Note: Known from previous admission. Admission notes reviewed. continues to have the same symptoms that she presented with. O/E: General: looks comfortable HEENT NCAT Lungs: CTA b/l cor:rrr LE: no Edema Last Vital Signs Temp Pulse Resp BP Pulse Ox 98.4 F 80 20 120/76 100 10/25/17 10:24 10/25/17 10:24 10/25/17 10:24 10/25/17 10:24 10/24/17 12:00 CBC, BMP 10/25/17 06:00 10/25/17 07:15 Current Medications Generic Name Dose Route Start Last Admin Trade Name Freq PRN Reason Stop Dose Admin Acetaminophen 650 mg 10/24/17 16:28 Tylenol - PO Q6H PRN MODERATE PAIN Gabapentin 300 mg 10/25/17 10:15 Neurontin - PO BID DESTINY Multivitamins/Minerals 1 each 10/25/17 11:00 Theragran-M PO DAILY DESTINY Pantoprazole Sodium 40 mg 10/25/17 10:00 10/25/17 10:08 Protonix - PO 40 mg DAILY DESTINY Administration Rivaroxaban 20 mg 10/24/17 18:00 10/24/17 18:53 Xarelto - PO Not Given DAILY@1800 [facility] h/o PVT: c/w xarelto repeat US abdomen to eval PVT. recent admission at [facility] per pt and was told that the clot almost had near resolution heme appt given for 11/02 2:00pm. (given info ), strongly advised follow-up, family member at bedside assured f/u neuropathy: per neuro/pmd b12 wnl Multiple episodes of pancreatitis: most recent in [facility] as per pt GI to eval surgery eval noted
[2017-10-25] MEDS: MULTIVITAMINS THER W-MINERALS COMBO TABLET (FP) PO SCH (12:20)
[2017-10-25] MEDS: GABAPENTIN 300 MG CAPSULE (FP) PO SCH ×2 (12:21→21:50)
--- NOTE | 2017-10-25 13:30 | CONS ---
PHYSICAL MEDICINE REHABILITATION CONSULTATION DATE OF CONSULTATION: 10/25/2017 HISTORY OF PRESENT ILLNESS: Patient is a 27-year-old woman with past medical history of gastric sleeve on August 11, 2017, as well as hypertension, pancreatitis, who was admitted with numbness and bilateral lower extremity weakness, inability to ambulate. Patient states that she started to notice numbness in her abdomen and subsequently developed weakness in the lower extremities the day prior to admission. She was unable to ambulate. Patient notes numbness or tingling from the abdomen distally and also some difficulty urinating and moving her bowels. Patient was started on gabapentin and had some degree of pain but more weakness in the lower limbs. She did undergo an MRI of the brain and CT of the head, which showed no abnormalities. Blood work has been ordered. She has a normal CBC. Chemistry is partially back. Her B12 level is normal at 638 and normal folate, but she is pending vitamin E, vitamin B2, and vitamin A. Otherwise, chemistry mainly within normal limits. Albumin 3.5. Sodium 140, potassium 4.2, chloride 106, CO2 of 27, BUN 14, creatinine 0.7. Patient has [id number] symptoms involving her upper extremities. PAST MEDICAL AND SURGICAL HISTORY: As above. Hypertension, gastric sleeve. SOCIAL HISTORY: Premorbidly, she was ambulating without assistive device. Prior tobacco user. Denies any substance abuse or alcohol use. CURRENT FUNCTION: She has been bedridden for the last 4 days or so. REVIEW OF SYSTEMS: No lightheadedness, dizziness. No headache. No blurry vision or double vision. No nausea or vomiting, difficulty swallowing, difficulty chewing. No chest pain, shortness of breath. She does have tingling in the abdomen, constipation, difficulty urinating, and weakness of the lower extremities with numbness from the abdomen distally. Weight loss after bariatric surgery. No fever, chills, or recent illness. PHYSICAL EXAMINATION: General: Patient is an overweight woman seen lying in bed. She is calm and in no acute distress. HEENT: She is normocephalic and atraumatic. Extraocular muscles appear intact. Neck: Supple. Extremities: She is sensitive in the lower extremities, but no isolated calf tenderness or pitting edema. Skin: Without any rash or breakdown. Neuromuscular: She is awake, alert, cooperative. Cranial nerves 2-12 grossly intact. Good motor power in the upper extremities but weakness throughout her lower extremities, right more than left. She has antigravity hip girdle strength. However, only 2/5 distal strength in the right lower extremity. On the left side, she has better strength distally at 4/5 and antigravity strength in the hip girdle. Diminished sensation in patches throughout the lower extremities but mainly normal pinprick in the dorsum and plantar surface of the feet. Slightly limited more proximally, right more than left. She has brisk knee jerk reflex at 3+. Ankle jerks are 1+ to 2+. Toes: Difficult to assess as she withdraws to Babinski. She has no increased tone in the lower extremities. Unable to stand or ambulate the patient at this time. OVERALL IMPRESSION: 1. Lower extremity weakness, numbness with change in bowel and urinary retention, uncertain etiology but cannot rule out thoracic pathology. 2. Status post gastric sleeve. 3. History of pancreatitis. 4. History of hypertension. 5. Elevated body mass index. 6. Increased risk for deep venous thrombosis due to immobility. PLAN/SUGGESTION: 1. We will discuss with Neurology. 2. Consider MRI of the thoracic and possibly lumbar spine. 3. Physical therapy once cleared. 4. Patient is on Xarelto. No further DVT prophylaxis is needed. 5. Continue Neurontin. 6. Blood work pending. 7. May require inpatient rehabilitation. Thank you for this referral. ISIAH BARLOW M.D. [facility]/[id number]
[2017-10-25] MEDS: RIVAROXABAN 20 MG TABLET PO SCH (18:03)
--- NOTE | 2017-10-25 18:51 | PN ---
Progress Note (short form) - Note Progress Note: patient was seen by Dr Barraza August 2017. Pleae inform him of the readmission. Thanks
--- NOTE | 2017-10-26 09:44 | PN ---
Progress Note (short form) - Note Progress Note: Neurology History of Present Illness 27-year-old female, history of hypertension, status post gastric sleeve 2016, C/B PVT, on xarelto, on calcium supplements, pancreatitis, denies ETOH use , p/w a constellation of symptoms including diffuse numbness with severe weakness to bilateral lower extremity and states she has not been able to ambulate for several days. Also complaining of lidia-oral tingling with dizziness, vague headache and possible blurry vision. She reported that since her gastric sleeve surgery, she has had intermittent diffuse weakness that has gradually worsened. No slurred speech, nausea, vomiting, fever, abdominal pain , change in bowel movements, easy bleeding or bruising, mood changes or periods of confusion. She completed MRI brain and no significant abnormalities noted. She reports leg numbness in the past was helped by gabapentin and started this for her. Is reporting improvement in sensory symptoms. Also elevated legs off bed more strongly today, completed MRI T and L spine overnight. Awaiting report but L5 disc appears herniated more than i would expect for age. Consider NSGY input. Also consider thiamine supplementation as depletion can occur from gastric procedure. Active Medications Acetaminophen (Tylenol -) 650 mg PO Q6H PRN PRN Reason: MODERATE PAIN Gabapentin (Neurontin -) 300 mg PO BID [facility] Last Admin: 10/25/17 21:50 Dose: 300 mg Multivitamins/Minerals (Theragran-M) 1 each PO DAILY [facility] Last Admin: 10/25/17 12:20 Dose: 1 each Pantoprazole Sodium (Protonix -) 40 mg PO DAILY [facility] Last Admin: 10/25/17 10:08 Dose: 40 mg Rivaroxaban (Xarelto -) 20 mg PO DAILY@1800 [facility] Last Admin: 10/25/17 18:03 Dose: 20 mg *Physical Exam Vital Signs Temperature 97.8 F 10/26/17 06:00 Pulse Rate 90 10/26/17 06:00 Respiratory Rate 85 H 10/26/17 06:00 Blood Pressure 112/57 10/26/17 06:00 O2 Sat by Pulse Oximetry (%) 100 10/25/17 21:00 - Physical Exam General Appearance: Yes: Appropriately Dressed. No: Apparent Distress HEENT: positive: Normal Voice Neck: positive: Supple Respiratory/Chest: positive: Lungs Clear, Normal Breath Sounds. negative: Respiratory Distress Cardiovascular: positive: Regular Rate, S1, S2 Gastrointestinal/Abdominal: positive: Soft. 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 gait deferred CBCD WBC 6.5 K/mm3 (4.0-10.0) 10/25/17 06:00 RBC 4.48 M/mm3 (3.60-5.2) 10/25/17 06:00 Hgb 13.1 GM/dL (10.7-15.3) 10/25/17 06:00 Hct 40.4 % (32.4-45.2) 10/25/17 06:00 MCV 90.0 fl (80-96) 10/25/17 06:00 MCHC 32.5 g/dl (32.0-36.0) 10/25/17 06:00 RDW 16.4 % (11.6-15.6) H 10/25/17 06:00 Plt Count 192 K/MM3 (134-434) 10/25/17 06:00 MPV 8.8 fl (7.5-11.1) 10/25/17 06:00 CMP Sodium 140 mmol/L (136-145) 10/25/17 07:15 Potassium 4.2 mmol/L (3.5-5.1) 10/25/17 07:15 Chloride 106 mmol/L (98-107) 10/25/17 07:15 Carbon Dioxide 27 mmol/L (21-32) 10/25/17 07:15 Anion Gap 7 (8-16) L 10/25/17 07:15 BUN 14 mg/dL (7-18) 10/25/17 07:15 Creatinine 0.7 mg/dL (0.55-1.02) 10/25/17 07:15 Creat Clearance w eGFR > 60 (>60) 10/25/17 07:15 Calcium 8.6 mg/dL (8.5-10.1) 10/25/17 07:15 Total Bilirubin 0.8 mg/dL (0.2-1.0) 10/25/17 07:15 AST 28 U/L (15-37) 10/25/17 07:15 ALT 56 U/L (12-78) 10/25/17 07:15 Alkaline Phosphatase 49 U/L (45-117) 10/25/17 07:15 Total Protein 6.3 g/dl (6.4-8.2) L 10/25/17 07:15 Albumin 3.5 g/dl (3.4-5.0) 10/25/17 07:15 MRI brain reviewed MRI T and L spine reviewed, awaiting report Plan 27-year-old female, history of hypertension, status post gastric sleeve 2016, C/B PVT, on xarelto, on calcium supplements, pancreatitis, denies ETOH use , p/w a constellation of symptoms including diffuse numbness with severe weakness to bilateral lower extremity and states she has not been able to ambulate for several days. Also complaining of lidia-oral tingling with dizziness, vague headache and possible blurry vision. She reports that since her gastric sleeve surgery, she has had intermittent diffuse weakness that has gradually worsened. No slurred speech, nausea, vomiting, fever, abdominal pain , change in bowel movements, easy bleeding or bruising, mood changes or periods of confusion. She completed MRI brain and no significant abnormalities noted. Gabapentin helping, continue current dose Recommend physcial therapy, may benefit from short term rehab. Consider starting thiamine as deficiency can mimic symptoms Awaiting MRI T and L spine report Would consider nsgy input based on disc herniation at lower lumbar spine Fall precautions
--- NOTE | 2017-10-26 11:04 | EKG ---
Test Reason : Blood Pressure : / mmHG Vent. Rate : 086 BPM Atrial Rate : 086 BPM P-R Int : 140 ms QRS Dur : 084 ms QT Int : 370 ms P-R-T Axes : 051 -01 057 degrees QTc Int : 442 ms NORMAL SINUS RHYTHM NORMAL ECG WHEN COMPARED WITH ECG OF 10-SEP-2017 16:20, PREMATURE SUPRAVENTRICULAR COMPLEXES ARE NO LONGER PRESENT Confirmed by LAURENT MARCOS, ORTIZ ([id number]) on 10/26/2017 11:04:30 AM Referred By: Confirmed By:ORTIZ MANCILLA MD
[2017-10-26] MEDS: PANTOPRAZOLE 40 MG TABLET (FP) PO SCH (11:09)
[2017-10-26] MEDS: GABAPENTIN 300 MG CAPSULE (FP) PO SCH ×2 (11:09→21:30)
[2017-10-26] MEDS: MULTIVITAMINS THER W-MINERALS COMBO TABLET (FP) PO SCH (11:09)
--- NOTE | 2017-10-26 13:08 | PN ---
Progress Note, Physician Chief Complaint: BL lower extremity weakness History of Present Illness: NAD, still with weakness BLLE seen by Neurology MRI lumbar spine report pending - Current Medication List Current Medications: Active Medications Acetaminophen (Tylenol -) 650 mg PO Q6H PRN PRN Reason: MODERATE PAIN Gabapentin (Neurontin -) 300 mg PO BID [facility] Last Admin: 10/26/17 11:09 Dose: 300 mg Multivitamins/Minerals (Theragran-M) 1 each PO DAILY [facility] Last Admin: 10/26/17 11:09 Dose: 1 each Pantoprazole Sodium (Protonix -) 40 mg PO DAILY [facility] Last Admin: 10/26/17 11:09 Dose: 40 mg Rivaroxaban (Xarelto -) 20 mg PO DAILY@1800 [facility] Last Admin: 10/25/17 18:03 Dose: 20 mg - Objective Vital Signs: Vital Signs Temperature 98.5 F 10/26/17 10:00 Pulse Rate 92 H 10/26/17 10:00 Respiratory Rate 18 10/26/17 10:00 Blood Pressure 108/61 10/26/17 10:00 O2 Sat by Pulse Oximetry (%) 100 10/26/17 09:00 Constitutional: Yes: Well Nourished, No Distress, Calm Cardiovascular: Yes: Regular Rate and Rhythm Respiratory: Yes: Regular Gastrointestinal: Yes: Normal Bowel Sounds, Soft, Abdomen, Obese Musculoskeletal: Yes: Muscle Weakness Edema: No Peripheral Pulses WNL: Yes Neurological: Yes: Alert, Oriented Psychiatric: Yes: Alert, Oriented Labs: CBC, BMP 10/25/17 06:00 10/25/17 07:15 INR, PTT INR 2.86 (0.82-1.09) H 10/24/17 14:00 Problem List - Problems (1) Lower extremity weakness Assessment/Plan: -neurology consult -MRI lumbar spine -Gabapentin -physical therapy -Neurosurgery consult Code(s): R29.898 - OTH SYMPTOMS AND SIGNS INVOLVING THE MUSCULOSKELETAL SYSTEM Qualifiers: Laterality: bilateral Qualified Code(s): R29.898 - Other symptoms and signs involving the musculoskeletal system (2) Unable to ambulate Assessment/Plan: -seen by NS and physiatry Code(s): R26.2 - DIFFICULTY IN WALKING, NOT ELSEWHERE CLASSIFIED (3) Lumbar radiculopathy, acute Code(s): M54.16 - RADICULOPATHY, LUMBAR REGION (4) Morbid (severe) obesity due to excess calories Code(s): E66.01 - MORBID (SEVERE) OBESITY DUE TO EXCESS CALORIES (5) Portal vein thrombosis Assessment/Plan: -on Xarelto -seen by Hematology Code(s): I81 - PORTAL VEIN THROMBOSIS Assessment/Plan see problem list
[2017-10-26] MEDS: RIVAROXABAN 20 MG TABLET PO SCH (18:30)
--- NOTE | 2017-10-26 21:32 | CONSULT ---
Consult - text type - Consultation Consultation Note: NEUROSURGERY CONSULTATION [place] is a 27 year old female with a history of Gastric Sleeve placement in July 2017 and a remote history of low back pain which was treated with medications who presents with a 3 day history of severe back and leg pains with paresthesias into her legs. She is sitting in her bed with her knees bent. She states that sitting in this position or sitting up are not painful, however, standing and bearing weight is difficulty due to pain. MRI Lumbar demonstrated small to medium disc bulges at L23 and L34 with a medium to large central protrusion at L45. I discussed the natural history of acute disc herniation, which is quite favorable - particularly in a patient that is expected to continue to lose weight - and that I would discourage surgical intervention unless the pain was unbearable despite maximum non-operative efforts or persisted for 2-3 months. Understandably, she is very reluctant to undergo surgical intervention if it can possibly be avoided. I discussed the warning signs which would prompt consideration for surgical intervention (fixed motor deficit or cauda equina syndrome) and the patient verbalizes an understanding. No acute Neurosurgical intervention is mandated and I have given her contact information if her condition progresses or she develops warning signs. In the interim, I explained that pain management with either a Medrol Dosepack or Epidural Steroid Injection may be considered.
[2017-10-27] MEDS: PANTOPRAZOLE 40 MG TABLET (FP) PO SCH (09:37)
[2017-10-27] MEDS: MULTIVITAMINS THER W-MINERALS COMBO TABLET (FP) PO SCH (09:37)
[2017-10-27] MEDS: GABAPENTIN 300 MG CAPSULE (FP) PO SCH ×2 (09:37→21:35)
--- NOTE | 2017-10-27 09:52 | PN ---
Progress Note (short form) - Note Progress Note: Neurology History of Present Illness 27-year-old female, history of hypertension, status post gastric sleeve 2016, C/B PVT, on xarelto, on calcium supplements, pancreatitis, denies ETOH use , p/w a constellation of symptoms including diffuse numbness with severe weakness to bilateral lower extremity and stated she has not been able to ambulate for several days. Also complaining of lidia-oral tingling with dizziness, vague headache and possible blurry vision. She reported that since her gastric sleeve surgery, she has had intermittent diffuse weakness that has gradually worsened. No slurred speech, nausea, vomiting, fever, abdominal pain , change in bowel movements, easy bleeding or bruising, mood changes or periods of confusion. She completed MRI brain and no significant abnormalities noted. She reports leg numbness in the past was helped by gabapentin and started this for her. Is reporting improvement in sensory symptoms. Also elevated legs off bed more strongly again today, completed MRI T and L spine. Reported reviewed and L4/L5 disc ridge appreciated, disc extrution, contacting S1 root on the L. gabapentin has been helpful. NSGY consulted and did not recommend surgical intervention. Active Medications Acetaminophen (Tylenol -) 650 mg PO Q6H PRN PRN Reason: MODERATE PAIN Gabapentin (Neurontin -) 300 mg PO BID [facility] Last Admin: 10/27/17 09:37 Dose: 300 mg Multivitamins/Minerals (Theragran-M) 1 each PO DAILY [facility] Last Admin: 10/27/17 09:37 Dose: 1 each Pantoprazole Sodium (Protonix -) 40 mg PO DAILY [facility] Last Admin: 10/27/17 09:37 Dose: 40 mg Rivaroxaban (Xarelto -) 20 mg PO DAILY@1800 [facility] Last Admin: 10/26/17 18:30 Dose: 20 mg *Physical Exam Vital Signs Temperature 97.9 F 10/27/17 06:00 Pulse Rate 93 H 10/27/17 06:00 Respiratory Rate 20 10/27/17 06:00 Blood Pressure 118/69 10/27/17 06:00 O2 Sat by Pulse Oximetry (%) 100 10/26/17 09:00 - Physical Exam General Appearance: Yes: Appropriately Dressed. No: Apparent Distress HEENT: positive: Normal Voice Neck: positive: Supple Respiratory/Chest: positive: Lungs Clear, Normal Breath Sounds. negative: Respiratory Distress Cardiovascular: positive: Regular Rate, S1, S2 Gastrointestinal/Abdominal: positive: Soft. 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 gait deferred CBCD WBC 6.5 K/mm3 (4.0-10.0) 10/25/17 06:00 RBC 4.48 M/mm3 (3.60-5.2) 10/25/17 06:00 Hgb 13.1 GM/dL (10.7-15.3) 10/25/17 06:00 Hct 40.4 % (32.4-45.2) 10/25/17 06:00 MCV 90.0 fl (80-96) 10/25/17 06:00 MCHC 32.5 g/dl (32.0-36.0) 10/25/17 06:00 RDW 16.4 % (11.6-15.6) H 10/25/17 06:00 Plt Count 192 K/MM3 (134-434) 10/25/17 06:00 MPV 8.8 fl (7.5-11.1) 10/25/17 06:00 CMP Sodium 140 mmol/L (136-145) 10/25/17 07:15 Potassium 4.2 mmol/L (3.5-5.1) 10/25/17 07:15 Chloride 106 mmol/L (98-107) 10/25/17 07:15 Carbon Dioxide 27 mmol/L (21-32) 10/25/17 07:15 Anion Gap 7 (8-16) L 10/25/17 07:15 BUN 14 mg/dL (7-18) 10/25/17 07:15 Creatinine 0.7 mg/dL (0.55-1.02) 10/25/17 07:15 Creat Clearance w eGFR > 60 (>60) 10/25/17 07:15 Calcium 8.6 mg/dL (8.5-10.1) 10/25/17 07:15 Total Bilirubin 0.8 mg/dL (0.2-1.0) 10/25/17 07:15 AST 28 U/L (15-37) 10/25/17 07:15 ALT 56 U/L (12-78) 10/25/17 07:15 Alkaline Phosphatase 49 U/L (45-117) 10/25/17 07:15 Total Protein 6.3 g/dl (6.4-8.2) L 10/25/17 07:15 Albumin 3.5 g/dl (3.4-5.0) 10/25/17 07:15 MRI brain reviewed MRI T and L spine reviewed Plan 27-year-old female, history of hypertension, status post gastric sleeve 2016, C/B PVT, on xarelto, on calcium supplements, pancreatitis, denies ETOH use , p/w a constellation of symptoms including diffuse numbness with severe weakness to bilateral lower extremity and states she has not been able to ambulate for several days. Also complaining of lidia-oral tingling with dizziness, vague headache and possible blurry vision. She reports that since her gastric sleeve surgery, she has had intermittent diffuse weakness that has gradually worsened. No slurred speech, nausea, vomiting, fever, abdominal pain , change in bowel movements, easy bleeding or bruising, mood changes or periods of confusion. She completed MRI brain and no significant abnormalities noted. MRI T and L spine reviewed Gabapentin helping, continue current dose, would consider increase in 2-3 weeks if persistent symptoms Recommend physcial therapy, may benefit from short term rehab. Consider starting thiamine as deficiency can mimic symptoms NSGY input appreciated Physical therapy Fall precautions
--- NOTE | 2017-10-27 10:32 | PN ---
Progress Note, Physician Chief Complaint: MRI noted for disc bulge no back pain only complains of heaviness of legs - Current Medication List Current Medications: Active Medications Acetaminophen (Tylenol -) 650 mg PO Q6H PRN PRN Reason: MODERATE PAIN Gabapentin (Neurontin -) 300 mg PO BID [facility] Last Admin: 10/27/17 09:37 Dose: 300 mg Multivitamins/Minerals (Theragran-M) 1 each PO DAILY [facility] Last Admin: 10/27/17 09:37 Dose: 1 each Pantoprazole Sodium (Protonix -) 40 mg PO DAILY [facility] Last Admin: 10/27/17 09:37 Dose: 40 mg Rivaroxaban (Xarelto -) 20 mg PO DAILY@1800 [facility] Last Admin: 10/26/17 18:30 Dose: 20 mg Thiamine HCl (Vitamin B1 -) 100 mg PO DAILY [facility] - Objective Vital Signs: Vital Signs Temperature 98.0 F 10/27/17 10:00 Pulse Rate 95 H 10/27/17 10:00 Respiratory Rate 20 10/27/17 10:00 Blood Pressure 134/62 10/27/17 10:00 O2 Sat by Pulse Oximetry (%) 100 10/26/17 09:00 Constitutional: Yes: Calm Neck: Yes: Trachea Midline Cardiovascular: Yes: Regular Rate and Rhythm, S1, S2 Respiratory: Yes: CTA Bilaterally Gastrointestinal: Yes: Normal Bowel Sounds, Soft Edema: No Labs: CBC, BMP 10/25/17 06:00 10/25/17 07:15 INR, PTT INR 2.86 (0.82-1.09) H 10/24/17 14:00 Problem List - Problems (1) H/O gastric bypass Assessment/Plan: s/p gastric sleeve now having numbness symptoms check vitamin levels-pending PMR neuro consult appreicated started on neurontin Code(s): Z98.84 - BARIATRIC SURGERY STATUS (2) Lower extremity weakness Assessment/Plan: MRI brain and CT scan negative LS MRI done show 3 disc bulges-no back pain started on gabapentin will start on thiamine as well PT eval b12 level normal Code(s): R29.898 - OTH SYMPTOMS AND SIGNS INVOLVING THE MUSCULOSKELETAL SYSTEM Qualifiers: Laterality: bilateral Qualified Code(s): R29.898 - Other symptoms and signs involving the musculoskeletal system (3) Unable to ambulate Assessment/Plan: r/o vitamin deficiency neuro and surgery saw the patient thiamine started PT eval on neurontin Code(s): R26.2 - DIFFICULTY IN WALKING, NOT ELSEWHERE CLASSIFIED (4) Pancreatitis Assessment/Plan: h/o pancreatitis trend lipase seen by Dr rodgers in past will have him see patient Code(s): K85.90 - ACUTE PANCREATITIS WITHOUT NECROSIS OR INFECTION, UNSP Qualifiers: Chronicity: acute Pancreatitis type: other Acute pancreatitis complication: no infection or necrosis Qualified Code(s): K85.80 - Other acute pancreatitis without necrosis or infection (5) Portal vein thrombosis Assessment/Plan: on xarelto heme follow up- 11/02 at 2:00pm at dr richey office Code(s): I81 - PORTAL VEIN THROMBOSIS
[2017-10-27] MEDS ORDERED: methylPREDNISolone 4 MG TABLET PO ONE (10:41)
--- NOTE | 2017-10-27 11:09 | PN ---
Progress Note (short form) - Note Progress Note: No new events Tolerating diet No abdominal pain Vital Signs Period Temp Pulse Resp BP Sys/Nguyễn Pulse Ox Last 24 Hr 97.7 F-98.1 F 78-99 20-22 111-134/62-69 Abd soft, NT CBC, BMP 10/25/17 06:00 Seen by Neurology and Neurosurgery MRI performed Multiple herniated discs Nonoperative treatment as this time per Neurosurgery Vitamin drip started Levels pending Problem List - Problems (1) Lower extremity weakness Code(s): R29.898 - OTH SYMPTOMS AND SIGNS INVOLVING THE MUSCULOSKELETAL SYSTEM Qualifiers: Laterality: bilateral Qualified Code(s): R29.898 - Other symptoms and signs involving the musculoskeletal system (2) Unable to ambulate Code(s): R26.2 - DIFFICULTY IN WALKING, NOT ELSEWHERE CLASSIFIED
[2017-10-27] MEDS ORDERED: PT OWN MED DRAWER 7, Y5N ONE (11:30)
[2017-10-27 11:46] LABS: ALBUMIN 3.7 g/dl (3.4-5.0); ANION GAP 10 (8-16); BILIRUBIN,TOTAL 0.9 mg/dL (0.2-1.0); BLOOD UREA NITROGEN 12 mg/dL (7-18); CALCIUM 8.7 mg/dL (8.5-10.1); CHLORIDE 104 mmol/L (98-107); CO2 26 mmol/L (21-32); CREATININE 0.6 mg/dL (0.55-1.02); GLUCOSE,RANDOM 111 mg/dL (74-106); POTASSIUM 3.4 mmol/L (3.5-5.1); SGOT/AST 24 U/L (15-37); SGPT/ALT 56 U/L (12-78); SODIUM 140 mmol/L (136-145)
[2017-10-27] MEDS: THIAMINE HCL 100 MG TABLET (FP) PO SCH (11:46)
[2017-10-27 11:47] LABS: ALK PHOS 55 U/L (45-117); TOT PROT 6.5 g/dl (6.4-8.2)
[2017-10-27 11:53] LABS: LIPASE 721 U/L (73-393)
--- NOTE | 2017-10-27 12:07 | CON.GI ---
Consult Consult Specialty:: GI Reason for Consultation:: elevated lipase - History of Present Illness History of Present Illness: A 27 yof known to GI from prior, recent admission for acute pancreatitis and PVT. This time the patient was admitted with weakness and back pain which are currently attributed to either nutritional, and/or neurological causes. Neurology and neurosurgery were consulted. Pt reports no GI-related complaints. She was noted, however, to have mildly elevated lipase and biliary sludge. Again , she reports no risk factors for pancreatitis. No fever, chills, weight loss, RUQ pain, nausea, or vomiting. No jaundice. Denies alcohol, smoking, family history. No recent viral illnesses, or ill contacts. 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 Home Medications - Allergies Allergies/Adverse Reactions: Allergies Allergy/AdvReac Type Severity Reaction Status Date / Time No Known Allergies Allergy Verified 10/24/17 12:04 - Home Medications Home Medications: Ambulatory Orders Calcium Carbonate [Calcium] 500 mg PO DAILY 09/20/17 Cholecalciferol (Vitamin D3) [Dialyvite Vitamin D] 5,000 unit PO DAILY 09/20/17 Famotidine [Pepcid] 20 mg PO BID 09/20/17 Omeprazole Magnesium [Prilosec Otc] 40 mg PO DAILY 09/20/17 Dicyclomine HCl [Bentyl -] 20 mg PO QID PRN 10/24/17 Losartan Potassium 50 mg PO DAILY 10/24/17 Metoprolol Succinate [Toprol Xl] 25 mg PO DAILY 10/24/17 Rivaroxaban [Xarelto -] 20 mg PO DAILY 10/24/17 Sennosides [Senna] 8.6 mg PO HS PRN 10/24/17 Family Disease History - Family Disease History Family History: Unremarkable Review of Systems Findings/Remarks: please refer to H&P, HPI Physical Exam-GI Vital Signs: Vital Signs Temperature 98.0 F 10/27/17 10:00 Pulse Rate 95 H 10/27/17 10:00 Respiratory Rate 20 10/27/17 10:00 Blood Pressure 134/62 10/27/17 10:00 O2 Sat by Pulse Oximetry (%) 100 10/26/17 09:00 Constitutional: Yes: Well Nourished, No Distress, Calm Eyes: Yes: Conjunctiva Clear HENT: Yes: Atraumatic Neck: Yes: Supple Cardiovascular: Yes: Regular Rate and Rhythm Respiratory: Yes: Regular Gastrointestinal Inspection: No: Distention ...Auscultate: Yes: Normoactive Bowel Sounds ...Palpate: No: Firm/Rigid, Guarding, Mass, Tenderness, Tenderness, Epigastium, Tenderness, Rebound Neurological: Yes: Alert, Oriented Labs: CBC, BMP 10/25/17 06:00 10/27/17 11:00 INR, PTT INR 2.86 (0.82-1.09) H 10/24/17 14:00 Laboratory Tests 10/24/17 10/24/17 10/24/17 14:00 14:00 14:00 WBC 9.1 RBC 5.00 Hgb 14.5 Hct 45.0 MCV 90.1 MCH 29.1 MCHC 32.3 RDW 16.2 H Plt Count 228 MPV 9.1 Neutrophils % 71.7 D Lymphocytes % 19.7 D Monocytes % 7.5 Eosinophils % 0.4 Basophils % 0.7 ESR PT with INR 32.30 H INR 2.86 H Sodium 141 Potassium 4.9 Chloride 104 Carbon Dioxide 28 Anion Gap 9 BUN 13 Creatinine 0.8 Creat Clearance w eGFR > 60 Random Glucose 88 Hemoglobin A1c % Calcium 9.8 Total Bilirubin 0.9 AST 47 H ALT 71 Alkaline Phosphatase 56 Total Protein 7.4 Albumin 3.8 Triglycerides Cholesterol Total LDL Cholesterol HDL Cholesterol Lipase 842 H Vitamin B12 Serum Folate Urine Color Urine Appearance Urine pH Ur Specific [place] Urine Protein Urine Glucose (UA) Urine Ketones Urine Blood Urine Nitrite Urine Bilirubin Urine Urobilinogen Ur Leukocyte Esterase Urine WBC (Auto) Urine RBC (Auto) Ur Epithelial Cells Hyaline Casts Urine Mucus Urine HCG, Qual Alcohol, Quantitative RPR Titer Lyme Disease IgG/IgM Blood Type Antibody Screen 10/24/17 10/24/17 10/24/17 14:00 16:20 16:20 WBC RBC Hgb Hct MCV MCH MCHC RDW Plt Count MPV Neutrophils % Lymphocytes % Monocytes % Eosinophils % Basophils % ESR PT with INR INR Sodium Potassium Chloride Carbon Dioxide Anion Gap BUN Creatinine Creat Clearance w eGFR Random Glucose Hemoglobin A1c % Calcium Total Bilirubin AST ALT Alkaline Phosphatase Total Protein Albumin Triglycerides Cholesterol Total LDL Cholesterol HDL Cholesterol Lipase Vitamin B12 785 Serum Folate 14 Urine Color Urine Appearance Urine pH Ur Specific [place] Urine Protein Urine Glucose (UA) Urine Ketones Urine Blood Urine Nitrite Urine Bilirubin Urine Urobilinogen Ur Leukocyte Esterase Urine WBC (Auto) Urine RBC (Auto) Ur Epithelial Cells Hyaline Casts Urine Mucus Urine HCG, Qual Alcohol, Quantitative RPR Titer Lyme Disease IgG/IgM Blood Type B POSITIVE Antibody Screen Negative 10/24/17 10/24/17 10/24/17 19:00 19:00 19:00 WBC RBC Hgb Hct MCV MCH MCHC RDW Plt Count MPV Neutrophils % Lymphocytes % Monocytes % Eosinophils % Basophils % ESR PT with INR INR Sodium Potassium Chloride Carbon Dioxide Anion Gap BUN Creatinine Creat Clearance w eGFR Random Glucose Hemoglobin A1c % 5.2 Calcium Total Bilirubin AST ALT Alkaline Phosphatase Total Protein Albumin Triglycerides Cholesterol Total LDL Cholesterol HDL Cholesterol Lipase Vitamin B12 Serum Folate Urine Color Urine Appearance Urine pH Ur Specific [place] Urine Protein Urine Glucose (UA) Urine Ketones Urine Blood Urine Nitrite Urine Bilirubin Urine Urobilinogen Ur Leukocyte Esterase Urine WBC (Auto) Urine RBC (Auto) Ur Epithelial Cells Hyaline Casts Urine Mucus Urine HCG, Qual Alcohol, Quantitative < 5.0 RPR Titer Nonreactive Lyme Disease IgG/IgM Blood Type Antibody Screen 10/24/1718 18 19:00 20:30 00:00 WBC RBC Hgb Hct MCV MCH MCHC RDW Plt Count MPV Neutrophils % Lymphocytes % Monocytes % Eosinophils % Basophils % ESR 7 PT with INR INR Sodium Potassium Chloride Carbon Dioxide Anion Gap BUN Creatinine Creat Clearance w eGFR Random Glucose Hemoglobin A1c % Calcium Total Bilirubin AST ALT Alkaline Phosphatase Total Protein Albumin Triglycerides Cholesterol Total LDL Cholesterol HDL Cholesterol Lipase Vitamin B12 Serum Folate Urine Color Yellow Urine Appearance Clear Urine pH 5.0 Ur Specific [place] 1.024 Urine Protein 1+ H Urine Glucose (UA) Negative Urine Ketones Trace H Urine Blood 1+ H Urine Nitrite Negative Urine Bilirubin Negative Urine Urobilinogen Normal Ur Leukocyte Esterase Negative Urine WBC (Auto) 4 Urine RBC (Auto) 13 Ur Epithelial Cells Rare Hyaline Casts 7 Urine Mucus Many Urine HCG, Qual Negative Alcohol, Quantitative RPR Titer Lyme Disease IgG/IgM < 0.91 Blood Type Antibody Screen 10/25/17 10/25/17 10/25/17 06:00 06:00 07:15 WBC 6.5 RBC 4.48 Hgb 13.1 Hct 40.4 MCV 90.0 MCH 29.3 MCHC 32.5 RDW 16.4 H Plt Count 192 MPV 8.8 Neutrophils % Lymphocytes % Monocytes % Eosinophils % Basophils % ESR PT with INR INR Sodium 140 Potassium 4.2 Chloride 106 Carbon Dioxide 27 Anion Gap 7 L BUN 14 Creatinine 0.7 Creat Clearance w eGFR > 60 Random Glucose 79 Hemoglobin A1c % Calcium 8.6 Total Bilirubin 0.8 AST 28 ALT 56 Alkaline Phosphatase 49 Total Protein 6.3 L Albumin 3.5 Triglycerides 90 Cholesterol 139 Total LDL Cholesterol 99 HDL Cholesterol 34 L Lipase Vitamin B12 638 Serum Folate Urine Color Urine Appearance Urine pH Ur Specific [place] Urine Protein Urine Glucose (UA) Urine Ketones Urine Blood Urine Nitrite Urine Bilirubin Urine Urobilinogen Ur Leukocyte Esterase Urine WBC (Auto) Urine RBC (Auto) Ur Epithelial Cells Hyaline Casts Urine Mucus Urine HCG, Qual Alcohol, Quantitative RPR Titer Lyme Disease IgG/IgM Blood Type Antibody Screen 10/25/17 10/27/17 07:15 11:00 WBC RBC Hgb Hct MCV MCH MCHC RDW Plt Count MPV Neutrophils % Lymphocytes % Monocytes % Eosinophils % Basophils % ESR PT with INR INR Sodium 140 Potassium 3.4 L Chloride 104 Carbon Dioxide 26 Anion Gap 10 BUN 12 Creatinine 0.6 Creat Clearance w eGFR > 60 Random Glucose 111 H Hemoglobin A1c % Calcium 8.7 Total Bilirubin 0.9 AST 24 ALT 56 Alkaline Phosphatase 55 Total Protein 6.5 Albumin 3.7 Triglycerides Cholesterol Total LDL Cholesterol HDL Cholesterol Lipase 645 H 721 H Vitamin B12 Serum Folate Urine Color Urine Appearance Urine pH Ur Specific [place] Urine Protein Urine Glucose (UA) Urine Ketones Urine Blood Urine Nitrite Urine Bilirubin Urine Urobilinogen Ur Leukocyte Esterase Urine WBC (Auto) Urine RBC (Auto) Ur Epithelial Cells Hyaline Casts Urine Mucus Urine HCG, Qual Alcohol, Quantitative RPR Titer Lyme Disease IgG/IgM Blood Type Antibody Screen Imaging - Results Ultrasound: Report Reviewed MRI: Report Reviewed (08/28 pancrease divisium) Problem List - Problems (1) Biliary acute pancreatitis Code(s): K85.10 - BILIARY ACUTE PANCREATITIS WITHOUT NECROSIS OR INFECTION (2) Gastric bypass status for obesity Code(s): Z98.84 - BARIATRIC SURGERY STATUS (3) H/O gastric bypass Code(s): Z98.84 - BARIATRIC SURGERY STATUS (4) Lower extremity weakness Code(s): R29.898 - OT SYMPTOMS AND SIGNS INVOLVING THE MUSCULOSKELETAL SYSTEM Qualifiers: Laterality: bilateral Qualified Code(s): R29.898 - Other symptoms and signs involving the musculoskeletal system (5) Pancreas divisum Code(s): Q45.3 - OT CONGENITAL MALFORMATIONS OF PANCREAS AND PANCREATIC DUCT Assessment/Plan Asymptomatic pancreatitis likely of biliary etiollogy. Pancrease divisium may be also paying a part. MRCP was done 2 months ago. No signs of other organ systems involvement. No signs of choledocolithiasis on US, cholangitis. Sx consult to discuss possible role for cholecustectomy Clear liquid diet observe Hemotology on the case for PVT
--- NOTE | 2017-10-27 12:25 | PN ---
Progress Note (short form) - Note Progress Note: Continues to improve participating in PT O/E: General: looks comfortable HEENT NCAT Lungs: CTA b/l cor:rrr LE: no Edema Last Vital Signs Temp Pulse Resp BP Pulse Ox 98.0 F 95 H 20 134/62 100 10/27/17 10:00 10/27/17 10:00 10/27/17 10:00 10/27/17 10:00 10/26/17 09:00 Current Medications Generic Name Dose Route Start Last Admin Trade Name Freq PRN Reason Stop Dose Admin Acetaminophen 650 mg 10/24/17 16:28 Tylenol - PO Q6H PRN MODERATE PAIN Gabapentin 300 mg 10/25/17 10:15 10/27/17 09:37 Neurontin - PO 300 mg BID DESTINY Administration Methylprednisolone 12 mg 10/28/17 09:00 Medrol - PO 10/28/17 09:01 ONCE ONE Methylprednisolone 8 mg 10/29/17 09:00 Medrol - PO 10/29/17 09:01 ONCE ONE Methylprednisolone 6 mg 10/30/17 09:00 Medrol - PO 10/30/17 09:01 ONCE ONE Methylprednisolone 4 mg 10/31/17 09:00 Medrol - PO 10/31/17 09:01 ONCE ONE Multivitamins/Minerals 1 each 10/25/17 11:00 10/27/17 09:37 Theragran-M PO 1 each DAILY DESTINY Administration Pantoprazole Sodium 40 mg 10/25/17 10:00 10/27/17 09:37 Protonix - PO 40 mg DAILY DESTINY Administration Rivaroxaban 20 mg 10/24/17 18:00 10/26/17 18:30 Xarelto - PO 20 mg DAILY@1800 DESTINY Administration Thiamine HCl 100 mg 10/27/17 10:30 10/27/17 11:46 Vitamin B1 - PO 100 mg DAILY DESTINY Administration CBC, BMP 10/25/17 06:00 10/27/17 11:00 PVT c/w xarelto US reviewed heme appt given for 11/02 2:00pm. if can't make it, will re-schedule GI/Neurology f/u noted
[2017-10-27] MEDS: RIVAROXABAN 20 MG TABLET PO SCH (18:24)
[2017-10-27] MEDS: POLYETHYLENE GLYCOL 3350 119 GM BTL PO SCH (21:35)
[2017-10-28] MEDS: POLYETHYLENE GLYCOL 3350 119 GM BTL PO SCH ×3 (05:55→21:51)
[2017-10-28] MEDS ORDERED: methylPREDNISolone 4 MG TABLET PO ONE (09:00)
[2017-10-28] MEDS ORDERED: PT OWN MED DRAWER 7, Y5N ONE (09:20)
[2017-10-28] MEDS: GABAPENTIN 300 MG CAPSULE (FP) PO SCH ×2 (09:23→21:50)
[2017-10-28] MEDS: PANTOPRAZOLE 40 MG TABLET (FP) PO SCH (09:23)
[2017-10-28] MEDS: MULTIVITAMINS THER W-MINERALS COMBO TABLET (FP) PO SCH (09:23)
[2017-10-28] MEDS: THIAMINE HCL 100 MG TABLET (FP) PO SCH (09:23)
--- NOTE | 2017-10-28 09:35 | DS ---
Physical Examination Vital Signs: Vital Signs Temperature 98.4 F 10/28/17 06:00 Pulse Rate 93 H 10/28/17 06:00 Respiratory Rate 18 10/28/17 06:00 Blood Pressure 118/70 10/28/17 06:00 O2 Sat by Pulse Oximetry (%) 100 10/26/17 09:00 Constitutional: Yes: Calm Cardiovascular: Yes: Regular Rate and Rhythm, S1, S2 Respiratory: Yes: CTA Bilaterally Gastrointestinal: Yes: Normal Bowel Sounds, Soft Edema: No Neurological: Yes: Alert, Oriented Labs: CBC, BMP 10/25/17 06:00 10/27/17 11:00 Discharge Summary Reason For Visit: WEAKNESS OF LOWER EXTREMITIES Current Active Problems Biliary acute pancreatitis (Acute) Gastric bypass status for obesity (Acute) H/O gastric bypass (Acute) Lower extremity weakness (Acute) Pancreas divisum (Acute) Unable to ambulate (Acute) Hospital Course: - Primary Care Physician PCP: Liang Parish - Admission Chief Complaint: leg numbess and weakness History of Present Illness: 27-year-old female, history of hypertension, status post gastric sleeve 2016, portal vein thrombosis on xarelto, on calcium supplements, h/o pancreatitis, denies ETOH use, p/w a constellation of symptoms including diffuse numbness with severe weakness to bilateral lower extremity and states she has not been able to ambulate for several days. Also complaining of lidia- oral tingling with dizziness, vague headache and possible blurry vision. She reports that since her gastric sleeve surgery, she has had intermittent diffuse weakness that has gradually worsened. No slurred speech, nausea, vomiting, fever, abdominal pain, change in bowel movements, easy bleeding or bruising, mood changes or periods of confusion. She completed MRI brain and no significant abnormalities noted. 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 course: brain MRI and ct scan normal has LS spine MRI shows 3 disc bulge-seen by neurology started on medrol pack seen by neurology and DEDE seen by GI as well s/p gastric sleeve in the past seen by surgery r/o vitamin deficiency started on thiamine b12 is normal seen by hemme has appoitment 11/02 at 2;00pm at dr richey office- portal vein thrombosis on xarelto shuffling gait and leg weaknes on medrol pack ,neurontin and thiamine will need SNF Condition: Guarded - Instructions Referrals: Liang Parish [Primary Care Provider] - Disposition: [facility] - Home Medications Comprehensive Discharge Medication List: Ambulatory Orders Calcium Carbonate [Calcium] 500 mg PO DAILY 09/20/17 Cholecalciferol (Vitamin D3) [Dialyvite Vitamin D] 5,000 unit PO DAILY 09/20/17 Famotidine [Pepcid] 20 mg PO BID 09/20/17 Omeprazole Magnesium [Prilosec Otc] 40 mg PO DAILY 09/20/17 Dicyclomine HCl [Bentyl -] 20 mg PO QID PRN 10/24/17 Losartan Potassium 50 mg PO DAILY 10/24/17 Metoprolol Succinate [Toprol Xl] 25 mg PO DAILY 10/24/17 Rivaroxaban [Xarelto -] 20 mg PO DAILY 10/24/17 Sennosides [Senna] 8.6 mg PO HS PRN 10/24/17
--- NOTE | 2017-10-28 09:37 | PN ---
Progress Note (short form) - Note Progress Note: patient refusing miralax for stool sfotner wants pills instead CCM referal made for snf placement Problem List - Problems (1) H/O gastric bypass Code(s): Z98.84 - BARIATRIC SURGERY STATUS (2) Lower extremity weakness Code(s): R29.898 - OTH SYMPTOMS AND SIGNS INVOLVING THE MUSCULOSKELETAL SYSTEM Qualifiers: Laterality: bilateral Qualified Code(s): R29.898 - Other symptoms and signs involving the musculoskeletal system (3) Unable to ambulate Code(s): R26.2 - DIFFICULTY IN WALKING, NOT ELSEWHERE CLASSIFIED (4) Pancreatitis Code(s): K85.90 - ACUTE PANCREATITIS WITHOUT NECROSIS OR INFECTION, UNSP Qualifiers: Chronicity: acute Pancreatitis type: other Acute pancreatitis complication: no infection or necrosis Qualified Code(s): K85.80 - Other acute pancreatitis without necrosis or infection (5) Portal vein thrombosis Code(s): I81 - PORTAL VEIN THROMBOSIS
[2017-10-28 10:02] LABS: BASO % 0.3 % (0-2.0); EOS % 0.2 % (0-4.5); HEMOGLOBIN 13.1 GM/dL (10.7-15.3); LYMPH % 30.1 % (8-40); MCHC 31.9 g/dl (32.0-36.0); MEAN CELL VOLUME 91.1 fl (80-96); MEAN PLT VOLUME 9.1 fl (7.5-11.1); MONO % 5.4 % (3.8-10.2); PLATELET COUNT 235 K/MM3 (134-434); RBC 4.51 M/mm3 (3.60-5.2); RDW 16.4 % (11.6-15.6); WHITE BLOOD COUNT 9.2 K/mm3 (4.0-10.0)
[2017-10-28 10:19] LABS: ANION GAP 8 (8-16); BLOOD UREA NITROGEN 11 mg/dL (7-18); CALCIUM 9.3 mg/dL (8.5-10.1); CHLORIDE 107 mmol/L (98-107); CO2 28 mmol/L (21-32); CREATININE 0.5 mg/dL (0.55-1.02); GLUCOSE,RANDOM 80 mg/dL (74-106); POTASSIUM 3.6 mmol/L (3.5-5.1); SODIUM 143 mmol/L (136-145)
--- NOTE | 2017-10-28 14:13 | PN ---
Progress Note (short form) - Note Progress Note: Continues to improve improving. O/E: General: looks comfortable HEENT NCAT Lungs: CTA b/l cor:rrr LE: no Edema Last Vital Signs Temp Pulse Resp BP Pulse Ox 98.0 F 92 H 18 116/70 100 10/28/17 10:00 10/28/17 10:00 10/28/17 10:00 10/28/17 10:00 10/26/17 09:00 CBC, BMP 10/28/17 09:41 10/28/17 09:41 Current Medications Generic Name Dose Route Start Last Admin Trade Name Freq PRN Reason Stop Dose Admin Acetaminophen 650 mg 10/24/17 16:28 Tylenol - PO Q6H PRN MODERATE PAIN Docusate Sodium 100 mg 10/28/17 14:00 Colace - PO TID DESTINY Gabapentin 300 mg 10/25/17 10:15 10/28/17 09:23 Neurontin - PO 300 mg BID DESTINY Administration Methylprednisolone 8 mg 10/29/17 09:00 Medrol - PO 10/29/17 09:01 ONCE ONE Methylprednisolone 6 mg 10/30/17 09:00 Medrol - PO 10/30/17 09:01 ONCE ONE Methylprednisolone 4 mg 10/31/17 09:00 Medrol - PO 10/31/17 09:01 ONCE ONE Multivitamins/Minerals 1 each 10/25/17 11:00 10/28/17 09:23 Theragran-M PO 1 each DAILY DESTINY Administration Pantoprazole Sodium 40 mg 10/25/17 10:00 10/28/17 09:23 Protonix - PO 40 mg DAILY DESTINY Administration Polyethylene Glycol 17 gm 10/27/17 22:00 10/28/17 05:55 Miralax (For Daily Use) - PO 17 gm TID DESTINY Administration Rivaroxaban 20 mg 10/24/17 18:00 10/27/17 18:24 Xarelto - PO 20 mg DAILY@1800 DESTINY Administration Thiamine HCl 100 mg 10/27/17 10:30 10/28/17 09:23 Vitamin B1 - PO 100 mg DAILY DESTINY Administration PVT c/w xarelto US reviewed for now heme appt given for 11/02 2:00pm. if can't make it, will re-schedule and she will also call our office GI/Neurology f/u noted continues to improve as per her
[2017-10-28] MEDS: DOCUSATE SODIUM 100 MG CAPSULE (FP) PO SCH ×2 (14:52→21:50)
[2017-10-28] MEDS: RIVAROXABAN 20 MG TABLET PO SCH (18:21)
--- NOTE | 2017-10-28 20:57 | PN ---
Progress Note (short form) - Note Progress Note: No new events Tolerating diet No abdominal pain Vital Signs Period Temp Pulse Resp BP Sys/Nguyễn Pulse Ox Last 24 Hr 98.0 F-98.4 F 92-102 18-18 116-128/70-75 Abd soft, NT CBC, BMP 10/28/17 09:41 10/28/17 09:41 Continue current care per Neurology/Neurosurgery Recommended to see hepatobiliary specialist for recurrent pancreatitis Problem List - Problems (1) Lower extremity weakness Code(s): R29.898 - OTH SYMPTOMS AND SIGNS INVOLVING THE MUSCULOSKELETAL SYSTEM Qualifiers: Laterality: bilateral Qualified Code(s): R29.898 - Other symptoms and signs involving the musculoskeletal system (2) Unable to ambulate Code(s): R26.2 - DIFFICULTY IN WALKING, NOT ELSEWHERE CLASSIFIED
[2017-10-29] MEDS: DOCUSATE SODIUM 100 MG CAPSULE (FP) PO SCH ×3 (05:19→21:03)
[2017-10-29] MEDS: POLYETHYLENE GLYCOL 3350 119 GM BTL PO SCH ×3 (05:20→21:03)
[2017-10-29] MEDS ORDERED: methylPREDNISolone 4 MG TABLET PO ONE (09:00)
[2017-10-29] MEDS: THIAMINE HCL 100 MG TABLET (FP) PO SCH (10:05)
[2017-10-29] MEDS: MULTIVITAMINS THER W-MINERALS COMBO TABLET (FP) PO SCH (10:05)
[2017-10-29] MEDS: GABAPENTIN 300 MG CAPSULE (FP) PO SCH ×2 (10:05→21:03)
[2017-10-29] MEDS: PANTOPRAZOLE 40 MG TABLET (FP) PO SCH (10:06)
[2017-10-29] MEDS ORDERED: PT OWN MED DRAWER 7, Y5N ONE (10:10)
--- NOTE | 2017-10-29 11:52 | PN ---
Progress Note, Physician - Current Medication List Current Medications: Active Medications Acetaminophen (Tylenol -) 650 mg PO Q6H PRN PRN Reason: MODERATE PAIN Docusate Sodium (Colace -) 100 mg PO TID [facility] Last Admin: 10/29/17 05:19 Dose: 100 mg Gabapentin (Neurontin -) 300 mg PO BID [facility] Last Admin: 10/29/17 10:05 Dose: 300 mg Methylprednisolone (Medrol -) 6 mg PO ONCE ONE Stop: 10/30/17 09:01 Methylprednisolone (Medrol -) 4 mg PO ONCE ONE Stop: 10/31/17 09:01 Multivitamins/Minerals (Theragran-M) 1 each PO DAILY [facility] Last Admin: 10/29/17 10:05 Dose: 1 each Pantoprazole Sodium (Protonix -) 40 mg PO DAILY [facility] Last Admin: 10/29/17 10:06 Dose: 40 mg Polyethylene Glycol (Miralax (For Daily Use) -) 17 gm PO TID [facility] Last Admin: 10/29/17 05:20 Dose: Not Given Rivaroxaban (Xarelto -) 20 mg PO DAILY@1800 [facility] Last Admin: 10/28/17 18:21 Dose: 20 mg Thiamine HCl (Vitamin B1 -) 100 mg PO DAILY [facility] Last Admin: 10/29/17 10:05 Dose: 100 mg - Objective Vital Signs: Vital Signs Temperature 97.7 F 10/29/17 09:00 Pulse Rate 83 10/29/17 09:00 Respiratory Rate 18 10/29/17 09:00 Blood Pressure 111/74 10/29/17 09:00 O2 Sat by Pulse Oximetry (%) 100 10/29/17 09:00 Labs: CBC, BMP 10/28/17 09:41 10/28/17 09:41 INR, PTT INR 2.86 (0.82-1.09) H 10/24/17 14:00 Assessment/Plan - Problems (1) H/O gastric bypass Assessment/Plan: s/p gastric sleeve now having numbness symptoms check vitamin levels-noted PMR neuro consult appreciated started on neurontin Code(s): Z98.84 - BARIATRIC SURGERY STATUS (2) Lower extremity weakness Assessment/Plan: MRI brain and CT scan negative LS MRI done show 3 disc bulges-no back pain started on gabapentin will start on thiamine as well PT eval b12 level normal emg Code(s): R29.898 - OTH SYMPTOMS AND SIGNS INVOLVING THE MUSCULOSKELETAL SYSTEM Qualifiers: Laterality: bilateral Qualified Code(s): R29.898 - Other symptoms and signs involving the musculoskeletal system (3) Unable to ambulate Assessment/Plan: r/o vitamin deficiency neuro and surgery saw the patient thiamine started PT eval on neurontin Code(s): R26.2 - DIFFICULTY IN WALKING, NOT ELSEWHERE CLASSIFIED (4) Pancreatitis Assessment/Plan: h/o pancreatitis trend lipase seen by Dr rodgers in past repeat labs Code(s): K85.90 - ACUTE PANCREATITIS WITHOUT NECROSIS OR INFECTION, UNSP Qualifiers: Chronicity: acute Pancreatitis type: other Acute pancreatitis complication: no infection or necrosis Qualified Code(s): K85.80 - Other acute pancreatitis without necrosis or infection (5) Portal vein thrombosis Assessment/Plan: on xarelto heme follow up- 11/02 at 2:00pm at dr richey office Code(s): I81 - PORTAL VEIN THROMBOSIS
--- NOTE | 2017-10-29 12:57 | PN ---
Progress Note (short form) - Note Progress Note: Neurology History of Present Illness 27-year-old female, history of hypertension, status post gastric sleeve 2016, C/B PVT, on xarelto, on calcium supplements, pancreatitis, denies ETOH use , p/w a constellation of symptoms including diffuse numbness with severe weakness to bilateral lower extremity and stated she has not been able to ambulate for several days. Also complaining of lidia-oral tingling with dizziness, vague headache and possible blurry vision. She reported that since her gastric sleeve surgery, she has had intermittent diffuse weakness that has gradually worsened. No slurred speech, nausea, vomiting, fever, abdominal pain , change in bowel movements, easy bleeding or bruising, mood changes or periods of confusion. She completed MRI brain and no significant abnormalities noted. She reports leg numbness in the past was helped by gabapentin and started this for her. Is reporting improvement in sensory symptoms. Also elevated legs off bed more strongly again today, completed MRI T and L spine. Reported reviewed and L4/L5 disc ridge appreciated, disc extrution, contacting S1 root on the L. gabapentin has been helpful. NSGY consulted and did not recommend surgical intervention. Patient being considered for Escalera and interested in rehab. No new events, received short course of IV solumedrol as well. Active Medications Acetaminophen (Tylenol -) 650 mg PO Q6H PRN PRN Reason: MODERATE PAIN Docusate Sodium (Colace -) 100 mg PO TID [facility] Last Admin: 10/29/17 05:19 Dose: 100 mg Gabapentin (Neurontin -) 300 mg PO BID [facility] Last Admin: 10/29/17 10:05 Dose: 300 mg Methylprednisolone (Medrol -) 6 mg PO ONCE ONE Stop: 10/30/17 09:01 Methylprednisolone (Medrol -) 4 mg PO ONCE ONE Stop: 10/31/17 09:01 Multivitamins/Minerals (Theragran-M) 1 each PO DAILY [facility] Last Admin: 10/29/17 10:05 Dose: 1 each Pantoprazole Sodium (Protonix -) 40 mg PO DAILY [facility] Last Admin: 10/29/17 10:06 Dose: 40 mg Polyethylene Glycol (Miralax (For Daily Use) -) 17 gm PO TID [facility] Last Admin: 10/29/17 05:20 Dose: Not Given Rivaroxaban (Xarelto -) 20 mg PO DAILY@1800 [facility] Last Admin: 10/28/17 18:21 Dose: 20 mg Thiamine HCl (Vitamin B1 -) 100 mg PO DAILY [facility] Last Admin: 10/29/17 10:05 Dose: 100 mg *Physical Exam Vital Signs Temperature 97.7 F 10/29/17 09:00 Pulse Rate 83 10/29/17 09:00 Respiratory Rate 18 10/29/17 09:00 Blood Pressure 111/74 10/29/17 09:00 O2 Sat by Pulse Oximetry (%) 100 10/29/17 09:00 - Physical Exam General Appearance: Yes: Appropriately Dressed. No: Apparent Distress HEENT: positive: Normal Voice Neck: positive: Supple Respiratory/Chest: positive: Lungs Clear, Normal Breath Sounds. negative: Respiratory Distress Cardiovascular: positive: Regular Rate, S1, S2 Gastrointestinal/Abdominal: positive: Soft. negative: Tender Integumentary: positive: Dry, Warm Neurologic: precipitation equipment tender II-XII NML intact, Fully Oriented, Alert, Normal Mood/Affect, Normal Response, Finger to Nose, lifts B/L LE off bed and more sustained 4+/5, sensory slightly diminished in lower ext. gait deferred CBCD WBC 9.2 K/mm3 (4.0-10.0) D 10/28/17 09:41 RBC 4.51 M/mm3 (3.60-5.2) 10/28/17 09:41 Hgb 13.1 GM/dL (10.7-15.3) 10/28/17 09:41 Hct 41.0 % (32.4-45.2) 10/28/17 09:41 MCV 91.1 fl (80-96) 10/28/17 09:41 MCHC 31.9 g/dl (32.0-36.0) L 10/28/17 09:41 RDW 16.4 % (11.6-15.6) H 10/28/17 09:41 Plt Count 235 K/MM3 (134-434) D 10/28/17 09:41 MPV 9.1 fl (7.5-11.1) 10/28/17 09:41 CMP Sodium 143 mmol/L (136-145) 10/28/17 09:41 Potassium 3.6 mmol/L (3.5-5.1) 10/28/17 09:41 Chloride 107 mmol/L (98-107) 10/28/17 09:41 Carbon Dioxide 28 mmol/L (21-32) 10/28/17 09:41 Anion Gap 8 (8-16) 10/28/17 09:41 BUN 11 mg/dL (7-18) 10/28/17 09:41 Creatinine 0.5 mg/dL (0.55-1.02) L 10/28/17 09:41 Creat Clearance w eGFR > 60 (>60) 10/27/17 11:00 Calcium 9.3 mg/dL (8.5-10.1) 10/28/17 09:41 Total Bilirubin 0.9 mg/dL (0.2-1.0) 10/27/17 11:00 AST 24 U/L (15-37) 10/27/17 11:00 ALT 56 U/L (12-78) 10/27/17 11:00 Alkaline Phosphatase 55 U/L (45-117) 10/27/17 11:00 Total Protein 6.5 g/dl (6.4-8.2) 10/27/17 11:00 Albumin 3.7 g/dl (3.4-5.0) 10/27/17 11:00 MRI brain reviewed MRI T and L spine reviewed Plan 27-year-old female, history of hypertension, status post gastric sleeve 2016, C/B PVT, on xarelto, on calcium supplements, pancreatitis, denies ETOH use , p/w a constellation of symptoms including diffuse numbness with severe weakness to bilateral lower extremity and states she has not been able to ambulate for several days. Also complaining of lidia-oral tingling with dizziness, vague headache and possible blurry vision. She reports that since her gastric sleeve surgery, she has had intermittent diffuse weakness that has gradually worsened. No slurred speech, nausea, vomiting, fever, abdominal pain , change in bowel movements, easy bleeding or bruising, mood changes or periods of confusion. She completed MRI brain and no significant abnormalities noted. MRI T and L spine reviewed Gabapentin helping, continue current dose, would consider increase in 2-3 weeks if persistent symptoms Recommend physcial therapy, may benefit from short term rehab. On thiamine as well NSGY input appreciated Physical therapy rehab placement, possibly escalera Fall precautions
[2017-10-29 13:12] LABS: BASO % 0.8 % (0-2.0); EOS % 0.6 % (0-4.5); HEMATOCRIT 40.9 % (32.4-45.2); LYMPH % 36.7 % (8-40); MCH 29.2 pg (25.7-33.7); MCHC 31.9 g/dl (32.0-36.0); MEAN CELL VOLUME 91.5 fl (80-96); MONO % 6.4 % (3.8-10.2); NEUT % 55.5 % (42.8-82.8); PLATELET COUNT 243 K/MM3 (134-434); RBC 4.47 M/mm3 (3.60-5.2); RDW 16.4 % (11.6-15.6)
[2017-10-29 14:15] LABS: ALBUMIN 3.6 g/dl (3.4-5.0); AMYLASE 112 U/L (25-115); ANION GAP 6 (8-16); BLOOD UREA NITROGEN 15 mg/dL (7-18); CALCIUM 9.2 mg/dL (8.5-10.1); CHLORIDE 109 mmol/L (98-107); CO2 30 mmol/L (21-32); GLUCOSE,RANDOM 99 mg/dL (74-106); POTASSIUM 3.2 mmol/L (3.5-5.1); SGPT/ALT 95 U/L (12-78); SODIUM 145 mmol/L (136-145)
[2017-10-29 14:17] LABS: ALK PHOS 54 U/L (45-117); BILIRUBIN,TOTAL 0.7 mg/dL (0.2-1.0); CREATININE 0.7 mg/dL (0.55-1.02); SGOT/AST 43 U/L (15-37); TOT PROT 6.9 g/dl (6.4-8.2)
[2017-10-29 14:25] LABS: LIPASE 758 U/L (73-393)
[2017-10-29] MEDS: RIVAROXABAN 20 MG TABLET PO SCH (18:22)
[2017-10-30] MEDS: DOCUSATE SODIUM 100 MG CAPSULE (FP) PO SCH ×3 (05:57→21:55)
[2017-10-30] MEDS: POLYETHYLENE GLYCOL 3350 119 GM BTL PO SCH ×3 (05:58→21:55)
[2017-10-30] MEDS ORDERED: methylPREDNISolone 2 MG TABLET PO ONE (09:00)
[2017-10-30] MEDS ORDERED: POTASSIUM CHLORIDE TABS 20 MEQ TABLET.ER (FP) PO ONE (09:59)
[2017-10-30 11:36] LABS: ALBUMIN 3.7 g/dl (3.4-5.0); ALK PHOS 56 U/L (45-117); AMYLASE 92 U/L (25-115); ANION GAP 7 (8-16); BILIRUBIN,TOTAL 0.8 mg/dL (0.2-1.0); BLOOD UREA NITROGEN 16 mg/dL (7-18); CALCIUM 8.6 mg/dL (8.5-10.1); CHLORIDE 110 mmol/L (98-107); CO2 29 mmol/L (21-32); CREATININE 0.6 mg/dL (0.55-1.02); GLUCOSE,RANDOM 78 mg/dL (74-106); LIPASE 585 U/L (73-393); SGOT/AST 58 U/L (15-37); SGPT/ALT 118 U/L (12-78); SODIUM 146 mmol/L (136-145); TOT PROT 6.6 g/dl (6.4-8.2)
--- NOTE | 2017-10-30 11:54 | PN ---
Progress Note, Physician - Current Medication List Current Medications: Active Medications Acetaminophen (Tylenol -) 650 mg PO Q6H PRN PRN Reason: MODERATE PAIN Docusate Sodium (Colace -) 100 mg PO TID [facility] Last Admin: 10/30/17 05:57 Dose: 100 mg Gabapentin (Neurontin -) 300 mg PO BID [facility] Last Admin: 10/29/17 21:03 Dose: 300 mg Methylprednisolone (Medrol -) 4 mg PO ONCE ONE Stop: 10/31/17 09:01 Multivitamins/Minerals (Theragran-M) 1 each PO DAILY [facility] Last Admin: 10/29/17 10:05 Dose: 1 each Pantoprazole Sodium (Protonix -) 40 mg PO DAILY [facility] Last Admin: 10/29/17 10:06 Dose: 40 mg Polyethylene Glycol (Miralax (For Daily Use) -) 17 gm PO TID [facility] Last Admin: 10/30/17 05:58 Dose: 17 gm Rivaroxaban (Xarelto -) 20 mg PO DAILY@1800 [facility] Last Admin: 10/29/17 18:22 Dose: 20 mg Thiamine HCl (Vitamin B1 -) 100 mg PO DAILY [facility] Last Admin: 10/29/17 10:05 Dose: 100 mg - Objective Vital Signs: Vital Signs Temperature 98 F 10/30/17 06:57 Pulse Rate 102 H 10/30/17 06:57 Respiratory Rate 20 10/30/17 06:57 Blood Pressure 118/82 10/30/17 06:57 O2 Sat by Pulse Oximetry (%) 100 10/29/17 21:00 Cardiovascular: Yes: Regular Rate and Rhythm Respiratory: Yes: Regular, CTA Bilaterally Gastrointestinal: Yes: Normal Bowel Sounds, Soft. No: Tenderness Neurological: Yes: Alert, Oriented Labs: CBC, BMP 10/29/17 12:55 10/30/17 10:36 INR, PTT INR 2.86 (0.82-1.09) H 10/24/17 14:00 Assessment/Plan - Problems (1) H/O gastric bypass Assessment/Plan: s/p gastric sleeve now having numbness symptoms check vitamin levels-noted PMR neuro consult appreciated started on neurontin Code(s): Z98.84 - BARIATRIC SURGERY STATUS (2) Lower extremity weakness Assessment/Plan: MRI brain and CT scan negative LS MRI done show 3 disc bulges-no back pain started on gabapentin will start on thiamine as well PT eval b12 level normal emg and pmr Code(s): R29.898 - OTH SYMPTOMS AND SIGNS INVOLVING THE MUSCULOSKELETAL SYSTEM Qualifiers: Laterality: bilateral Qualified Code(s): R29.898 - Other symptoms and signs involving the musculoskeletal system (3) Unable to ambulate Assessment/Plan: r/o vitamin deficiency neuro and surgery saw the patient thiamine started PT eval on neurontin Code(s): R26.2 - DIFFICULTY IN WALKING, NOT ELSEWHERE CLASSIFIED (4) Pancreatitis Assessment/Plan: h/o pancreatitis trend lipase seen by Dr rodgers in past repeat labs Code(s): K85.90 - ACUTE PANCREATITIS WITHOUT NECROSIS OR INFECTION, UNSP Qualifiers: Chronicity: acute Pancreatitis type: other Acute pancreatitis complication: no infection or necrosis Qualified Code(s): K85.80 - Other acute pancreatitis without necrosis or infection (5) Portal vein thrombosis Assessment/Plan: on xarelto heme follow up- 11/02 at 2:00pm at dr richey office Code(s): I81 - PORTAL VEIN THROMBOSIS (6) Constipation Assessment/Plan: add dulcolox on miralax (7) Abnormal Lft Assessment/Plan: FOLLOW LFT HEPATIS SCREEN GI F/UDC TYLENOL
--- NOTE | 2017-10-30 12:38 | PN ---
Progress Note (short form) - Note Progress Note: Neurology History of Present Illness 27-year-old female, history of hypertension, status post gastric sleeve 2016, C/B PVT, on xarelto, on calcium supplements, pancreatitis, denies ETOH use , p/w a constellation of symptoms including diffuse numbness with severe weakness to bilateral lower extremity and stated she has not been able to ambulate for several days. Also complaining of lidia-oral tingling with dizziness, vague headache and possible blurry vision. She reported that since her gastric sleeve surgery, she has had intermittent diffuse weakness that has gradually worsened. No slurred speech, nausea, vomiting, fever, abdominal pain , change in bowel movements, easy bleeding or bruising, mood changes or periods of confusion. She completed MRI brain and no significant abnormalities noted. She reports leg numbness in the past was helped by gabapentin and started this for her. Is reporting improvement in sensory symptoms. Also elevated legs off bed more strongly again today, completed MRI T and L spine. Reported reviewed and L4/L5 disc ridge appreciated, disc extrution, contacting S1 root on the L. gabapentin has been helpful. NSGY consulted and did not recommend surgical intervention. Patient being considered for Escalera and interested in rehab. No new events, received short course of IV solumedrol as well. Is providing improved strenght now after some treatment. Patient eager to start therapy. Active Medications Bisacodyl (Dulcolax -) 10 mg PO ONCE ONE Stop: 10/30/17 11:48 Docusate Sodium (Colace -) 100 mg PO TID [facility] Last Admin: 10/30/17 05:57 Dose: 100 mg Gabapentin (Neurontin -) 300 mg PO BID [facility] Last Admin: 10/29/17 21:03 Dose: 300 mg Hydrocortisone (Anusol 2.5% Hc Cream -) 1 applic TP BID [facility] Methylprednisolone (Medrol -) 4 mg PO ONCE ONE Stop: 10/31/17 09:01 Multivitamins/Minerals (Theragran-M) 1 each PO DAILY [facility] Last Admin: 10/29/17 10:05 Dose: 1 each Pantoprazole Sodium (Protonix -) 40 mg PO DAILY [facility] Last Admin: 10/29/17 10:06 Dose: 40 mg Polyethylene Glycol (Miralax (For Daily Use) -) 17 gm PO TID [facility] Last Admin: 10/30/17 05:58 Dose: 17 gm Rivaroxaban (Xarelto -) 20 mg PO DAILY@1800 [facility] Last Admin: 10/29/17 18:22 Dose: 20 mg Thiamine HCl (Vitamin B1 -) 100 mg PO DAILY [facility] Last Admin: 10/29/17 10:05 Dose: 100 mg *Physical Exam Vital Signs Period Temp Pulse Resp BP Sys/Nguyễn Pulse Ox Last 24 Hr 97.8 F-98.1 F 98-116 20-20 118-140/74-88 100 - Physical Exam General Appearance: Yes: Appropriately Dressed. No: Apparent Distress HEENT: positive: Normal Voice Neck: positive: Supple Respiratory/Chest: positive: Lungs Clear, Normal Breath Sounds. negative: Respiratory Distress Cardiovascular: positive: Regular Rate, S1, S2 Gastrointestinal/Abdominal: positive: Soft. negative: Tender Integumentary: positive: Dry, Warm Neurologic: wood setter II-XII NML intact, Fully Oriented, Alert, Normal Mood/Affect, Normal Response, Finger to Nose, lifts B/L LE off bed and more sustained 4+/5, sensory slightly diminished in lower ext. gait deferred CBCD WBC 9.0 K/mm3 (4.0-10.0) 10/29/17 12:55 RBC 4.47 M/mm3 (3.60-5.2) 10/29/17 12:55 Hgb 13.0 GM/dL (10.7-15.3) 10/29/17 12:55 Hct 40.9 % (32.4-45.2) 10/29/17 12:55 MCV 91.5 fl (80-96) 10/29/17 12:55 MCHC 31.9 g/dl (32.0-36.0) L 10/29/17 12:55 RDW 16.4 % (11.6-15.6) H 10/29/17 12:55 Plt Count 243 K/MM3 (134-434) 10/29/17 12:55 MPV 9.0 fl (7.5-11.1) 10/29/17 12:55 CMP Sodium 146 mmol/L (136-145) H 10/30/17 10:36 Potassium 4.0 mmol/L (3.5-5.1) 10/30/17 10:36 Chloride 110 mmol/L (98-107) H 10/30/17 10:36 Carbon Dioxide 29 mmol/L (21-32) 10/30/17 10:36 Anion Gap 7 (8-16) L 10/30/17 10:36 BUN 16 mg/dL (7-18) 10/30/17 10:36 Creatinine 0.6 mg/dL (0.55-1.02) 10/30/17 10:36 Creat Clearance w eGFR > 60 (>60) 10/30/17 10:36 Calcium 8.6 mg/dL (8.5-10.1) 10/30/17 10:36 Total Bilirubin 0.8 mg/dL (0.2-1.0) 10/30/17 10:36 AST 58 U/L (15-37) H 10/30/17 10:36 ALT 118 U/L (12-78) H 10/30/17 10:36 Alkaline Phosphatase 56 U/L (45-117) 10/30/17 10:36 Total Protein 6.6 g/dl (6.4-8.2) 10/30/17 10:36 Albumin 3.7 g/dl (3.4-5.0) 10/30/17 10:36 MRI brain reviewed MRI T and L spine reviewed Plan 27-year-old female, history of hypertension, status post gastric sleeve 2016, C/B PVT, on xarelto, on calcium supplements, pancreatitis, denies ETOH use , p/w a constellation of symptoms including diffuse numbness with severe weakness to bilateral lower extremity and states she has not been able to ambulate for several days. Also complaining of lidia-oral tingling with dizziness, vague headache and possible blurry vision. She reports that since her gastric sleeve surgery, she has had intermittent diffuse weakness that has gradually worsened. No slurred speech, nausea, vomiting, fever, abdominal pain , change in bowel movements, easy bleeding or bruising, mood changes or periods of confusion. She completed MRI brain and no significant abnormalities noted. MRI T and L spine reviewed Gabapentin helping, continue current dose Physcial therapy On thiamine as well NSGY input appreciated rehab placement, possibly escalera Fall precautions
[2017-10-30] MEDS: THIAMINE HCL 100 MG TABLET (FP) PO SCH (13:27)
[2017-10-30] MEDS: PANTOPRAZOLE 40 MG TABLET (FP) PO SCH (13:27)
[2017-10-30] MEDS: GABAPENTIN 300 MG CAPSULE (FP) PO SCH ×2 (13:27→21:55)
[2017-10-30] MEDS: MULTIVITAMINS THER W-MINERALS COMBO TABLET (FP) PO SCH (13:27)
[2017-10-30] MEDS ORDERED: PT OWN MED DRAWER 7, Y5N ONE ×3 (13:33→21:53)
[2017-10-30] MEDS ORDERED: BISACODYL 5 MG TABLET.DR (FP) PO ONE (15:00)
[2017-10-30] MEDS ORDERED: BENZOCAINE 28 GM HEMORRHOIDAL OINTMENT PR PRN (17:53)
[2017-10-30] MEDS ORDERED: PHENYLEPHRINE 0.25%/STARCH 1 EACH SUPP.RECT PR ONE (17:54)
[2017-10-30] MEDS ORDERED: WITCH HAZEL 50% (TUCKS) 40 PAD/JAR PAD TP PRN (17:54)
[2017-10-30] MEDS: HYDROCORTISONE 2.5% TOPICAL CREAM 30 GM TUBE TP SCH ×2 (18:02→21:55)
[2017-10-30] MEDS: RIVAROXABAN 20 MG TABLET PO SCH (18:05)
[2017-10-31] MEDS: DOCUSATE SODIUM 100 MG CAPSULE (FP) PO SCH ×3 (06:22→22:15)
[2017-10-31] MEDS: POLYETHYLENE GLYCOL 3350 119 GM BTL PO SCH ×3 (06:41→22:22)
[2017-10-31 08:40] LABS: ALBUMIN 3.5 g/dl (3.4-5.0); ANION GAP 6 (8-16); BILIRUBIN,TOTAL 0.7 mg/dL (0.2-1.0); BLOOD UREA NITROGEN 16 mg/dL (7-18); CALCIUM 8.6 mg/dL (8.5-10.1); CHLORIDE 111 mmol/L (98-107); CO2 28 mmol/L (21-32); CREATININE 0.6 mg/dL (0.55-1.02); GLUCOSE,RANDOM 81 mg/dL (74-106); POTASSIUM 4.2 mmol/L (3.5-5.1); SGOT/AST 47 U/L (15-37); SGPT/ALT 126 U/L (12-78); SODIUM 145 mmol/L (136-145); TOT PROT 6.2 g/dl (6.4-8.2)
[2017-10-31 08:41] LABS: ALK PHOS 55 U/L (45-117)
[2017-10-31] MEDS ORDERED: PT OWN MED DRAWER 7, Y5N ONE ×2 (08:53→09:47)
[2017-10-31] MEDS ORDERED: methylPREDNISolone 4 MG TABLET PO ONE (09:00)
[2017-10-31] MEDS: PANTOPRAZOLE 40 MG TABLET (FP) PO SCH (09:54)
[2017-10-31] MEDS: GABAPENTIN 300 MG CAPSULE (FP) PO SCH ×2 (09:54→22:15)
[2017-10-31] MEDS: THIAMINE HCL 100 MG TABLET (FP) PO SCH (09:54)
[2017-10-31] MEDS: MULTIVITAMINS THER W-MINERALS COMBO TABLET (FP) PO SCH (09:54)
[2017-10-31] MEDS: HYDROCORTISONE 2.5% TOPICAL CREAM 30 GM TUBE TP SCH ×2 (09:55→22:22)
--- NOTE | 2017-10-31 12:37 | PN ---
Progress Note (short form) - Note Progress Note: Continues to improve improving. awaiting rehab. O/E: General: looks comfortable HEENT NCAT Lungs: CTA b/l cor:rrr LE: no Edema Last Vital Signs Temp Pulse Resp BP Pulse Ox 98.0 F 92 H 18 116/70 100 10/28/17 10:00 10/28/17 10:00 10/28/17 10:00 10/28/17 10:00 10/26/17 09:00 CBC, BMP 10/28/17 09:41 10/28/17 09:41 Current Medications Generic Name Dose Route Start Last Admin Trade Name Freq PRN Reason Stop Dose Admin Acetaminophen 650 mg 10/24/17 16:28 Tylenol - PO Q6H PRN MODERATE PAIN Docusate Sodium 100 mg 10/28/17 14:00 Colace - PO TID [facility] Gabapentin 300 mg 10/25/17 10:15 10/28/17 09:23 Neurontin - PO 300 mg BID [facility] Administration Methylprednisolone 8 mg 10/29/17 09:00 Medrol - PO 10/29/17 09:01 ONCE ONE Methylprednisolone 6 mg 10/30/17 09:00 Medrol - PO 10/30/17 09:01 ONCE ONE Methylprednisolone 4 mg 10/31/17 09:00 Medrol - PO 10/31/17 09:01 ONCE ONE Multivitamins/Minerals 1 each 10/25/17 11:00 10/28/17 09:23 Theragran-M PO 1 each DAILY [facility] Administration Pantoprazole Sodium 40 mg 10/25/17 10:00 10/28/17 09:23 Protonix - PO 40 mg DAILY [facility] Administration Polyethylene Glycol 17 gm 10/27/17 22:00 10/28/17 05:55 Miralax (For Daily Use) - PO 17 gm TID [facility] Administration Rivaroxaban 20 mg 10/24/17 18:00 10/27/17 18:24 Xarelto - PO 20 mg DAILY@1800 [facility] Administration Thiamine HCl 100 mg 10/27/17 10:30 10/28/17 09:23 Vitamin B1 - PO 100 mg DAILY [facility] Administration PVT c/w xarelto US reviewed will re-schedule the appt, re-iterated the importance of f/u, info given again. New onset LFTs rise: ?etiology observe? GI/Neurology f/u noted awaiting rehab.
--- NOTE | 2017-10-31 13:22 | PN ---
Progress Note, Physician Chief Complaint: leg weakness improving awaitng rehab placement possible escalera - Current Medication List Current Medications: Active Medications Benzocaine (Americaine Ointment -) 1 applic ND DAILY PRN PRN Reason: HEMORRHOIDS Last Admin: 10/31/17 09:54 Dose: 1 applic Docusate Sodium (Colace -) 100 mg PO TID [facility] Last Admin: 10/31/17 06:22 Dose: 100 mg Gabapentin (Neurontin -) 300 mg PO BID [facility] Last Admin: 10/31/17 09:54 Dose: 300 mg Hydrocortisone (Anusol 2.5% Hc Cream -) 1 applic TP BID [facility] Last Admin: 10/31/17 09:55 Dose: 1 applic Multivitamins/Minerals (Theragran-M) 1 each PO DAILY [facility] Last Admin: 10/31/17 09:54 Dose: 1 each Pantoprazole Sodium (Protonix -) 40 mg PO DAILY [facility] Last Admin: 10/31/17 09:54 Dose: 40 mg Polyethylene Glycol (Miralax (For Daily Use) -) 17 gm PO TID [facility] Last Admin: 10/31/17 06:41 Dose: 17 gm Rivaroxaban (Xarelto -) 20 mg PO DAILY@1800 [facility] Last Admin: 10/30/17 18:05 Dose: 20 mg Thiamine HCl (Vitamin B1 -) 100 mg PO DAILY [facility] Last Admin: 10/31/17 09:54 Dose: 100 mg Witch Bettye/Glycerin (Tucks Pads -) 1 pad TP PRN PRN PRN Reason: hemmoroids - Objective Vital Signs: Vital Signs Temperature 98.1 F 10/31/17 10:03 Pulse Rate 101 H 10/31/17 10:03 Respiratory Rate 20 10/31/17 10:03 Blood Pressure 148/89 10/31/17 10:03 O2 Sat by Pulse Oximetry (%) 100 10/31/17 09:00 Constitutional: Yes: Calm Cardiovascular: Yes: Regular Rate and Rhythm, S1, S2 Respiratory: Yes: CTA Bilaterally Gastrointestinal: Yes: Normal Bowel Sounds, Soft Edema: No Neurological: Yes: Alert, Oriented Labs: CBC, BMP 10/29/17 12:55 10/31/17 07:45 INR, PTT INR 2.86 (0.82-1.09) H 10/24/17 14:00 Problem List - Problems (1) H/O gastric bypass Assessment/Plan: s/p gastric sleeve now having numbness symptoms check vitamin levels-pending PMR neuro consult appreicated started on neurontin Code(s): Z98.84 - BARIATRIC SURGERY STATUS (2) Lower extremity weakness Assessment/Plan: MRI brain and CT scan negative LS MRI done show 3 disc bulges-no back pain started on gabapentin will start on thiamine as well PT eval b12 level normal startedo n medrol pack- leg weakness improving will check b6 level as well Code(s): R29.898 - OTH SYMPTOMS AND SIGNS INVOLVING THE MUSCULOSKELETAL SYSTEM Qualifiers: Laterality: bilateral Qualified Code(s): R29.898 - Other symptoms and signs involving the musculoskeletal system (3) Unable to ambulate Assessment/Plan: r/o vitamin deficiency neuro and surgery saw the patient thiamine started PT eval on neurontin medrol pack -leg weaknes improving awaiting rehab / escalera placement Code(s): R26.2 - DIFFICULTY IN WALKING, NOT ELSEWHERE CLASSIFIED (4) Pancreatitis Assessment/Plan: h/o pancreatitis trend lipase seen by Dr rodgers in past will have him see patient- eval noted patient tolerating regular diet Code(s): K85.90 - ACUTE PANCREATITIS WITHOUT NECROSIS OR INFECTION, UNSP Qualifiers: Chronicity: acute Pancreatitis type: other Acute pancreatitis complication: no infection or necrosis Qualified Code(s): K85.80 - Other acute pancreatitis without necrosis or infection (5) Portal vein thrombosis Assessment/Plan: on xarelto heme follow up-rescheduled as patient will go to rehab Code(s): I81 - PORTAL VEIN THROMBOSIS
[2017-10-31] MEDS ORDERED: CYCLOBENZAPRINE HCL 10 MG TABLET (FP) PO SCH (16:00)
[2017-10-31] MEDS ORDERED: CYCLOBENZAPRINE HCL 5 MG TABLET PO SCH (16:00)
[2017-10-31] MEDS: RIVAROXABAN 20 MG TABLET PO SCH (17:37)
[2017-10-31] MEDS ORDERED: metoPROLOL SUCCINATE 25 MG TAB.SR.24H (FP) PO SCH (18:30)
--- NOTE | 2017-10-31 18:58 | PN ---
Physical Exam: SUBJECTIVE: Patient seen and examined OBJECTIVE: Vital Signs Period Temp Pulse Resp BP Sys/Nguyễn Pulse Ox Last 24 Hr 98.1 F-98.5 F 95-137 18-20 120-148/64-89 100 GENERAL: The patient is awake, alert, and fully oriented, in no acute distress. HEAD: Normal with no signs of trauma. EYES: PERRL, extraocular movements intact, sclera anicteric, conjunctiva clear. No ptosis. ENT: Ears normal, nares patent, oropharynx clear without exudates, moist mucous membranes. NECK: Trachea midline, full range of motion, supple. LUNGS: Breath sounds equal, clear to auscultation bilaterally, no wheezes, no crackles, no accessory muscle use. HEART: Regular rate and rhythm, S1, S2 without murmur, rub or gallop. ABDOMEN: Soft, nontender, nondistended, normoactive bowel sounds, no guarding, no rebound, no hepatosplenomegaly, no masses. EXTREMITIES: 2+ pulses, warm, well-perfused, no edema. NEUROLOGICAL: Cranial nerves II through XII grossly intact. Normal speech, gait not observed. PSYCH: Normal mood, normal affect. SKIN: Warm, dry, normal turgor, no rashes or lesions noted Laboratory Results - last 24 hr 10/30/17 10/31/17 12:35 07:45 Sodium 145 Potassium 4.2 Chloride 111 H Carbon Dioxide 28 Anion Gap 6 L BUN 16 Creatinine 0.6 Creat Clearance w eGFR > 60 Random Glucose 81 Calcium 8.6 Total Bilirubin 0.7 AST 47 H ALT 126 H Alkaline Phosphatase 55 Total Protein 6.2 L Albumin 3.5 Hepatitis A IgM Ab Negative Hep Bs Antigen Negative Hep B Core IgM Ab Negative Hepatitis C Antibody <0.1 Active Medications Generic Name Dose Route Start Last Admin Trade Name Freq PRN Reason Stop Dose Admin Benzocaine 1 applic 10/30/17 17:53 10/31/17 09:54 Americaine Ointment - SD 1 applic DAILY PRN Administration HEMORRHOIDS Cyclobenzaprine HCl 5 mg 10/31/17 16:00 10/31/17 16:41 Flexeril - PO 5 mg DAILY [facility] Administration Docusate Sodium 100 mg 10/28/17 14:00 10/31/17 14:40 Colace - PO 100 mg TID [facility] Administration Gabapentin 300 mg 10/25/17 10:15 02/19/18 09:54 Neurontin - PO 300 mg BID [facility] Administration Hydrocortisone 1 applic 10/30/17 12:00 10/31/17 09:55 Anusol 2.5% Hc Cream - TP 1 applic BID [facility] Administration Metoprolol Succinate 25 mg 10/31/17 18:30 Toprol Xl - PO DAILY [facility] Metoprolol Tartrate 5 mg 10/31/17 19:00 Lopressor Injection - IVPUSH 10/31/17 19:01 ONCE ONE Multivitamins/Minerals 1 each 10/25/17 11:00 10/31/17 09:54 Theragran-M PO 1 each DAILY [facility] Administration Pantoprazole Sodium 40 mg 10/25/17 10:00 10/31/17 09:54 Protonix - PO 40 mg DAILY [facility] Administration Polyethylene Glycol 17 gm 10/27/17 22:00 10/31/17 14:40 Miralax (For Daily Use) - PO 17 gm TID [facility] Administration Rivaroxaban 20 mg 10/24/17 18:00 10/31/17 17:37 Xarelto - PO 20 mg DAILY@1800 [facility] Administration Thiamine HCl 100 mg 10/27/17 10:30 10/31/17 09:54 Vitamin B1 - PO 100 mg DAILY [facility] Administration Witch Bettye/Glycerin 1 pad 10/30/17 17:54 Tucks Pads - TP PRN PRN hemmoroids ASSESSMENT/PLAN:
[2017-10-31] MEDS ORDERED: METOPROLOL TARTRATE 5 MG/5 ML VIAL IVPUSH ONE (19:00)
--- NOTE | 2017-10-31 19:05 | HOSP ---
Physical Examination Vital Signs: Vital Signs Temperature 98.5 F 10/31/17 14:23 Pulse Rate 137 H 10/31/17 18:32 Respiratory Rate 20 10/31/17 18:32 Blood Pressure 145/82 10/31/17 18:32 O2 Sat by Pulse Oximetry (%) 100 10/31/17 09:00 Labs: CBC, BMP 10/29/17 12:55 10/31/17 07:45 Hospitalist Encounter Assessment: Called by primary RN for rapid heart rate in the 130s On exam, patient is laying in the bed, in no acute distress denies chest pain, denies shortness of breath States she feels her heart racing EGK shows STachy 140s-150s Plan: Lopressor 5mg iv push x 1 - given by me followed by Metoprolol 25mg @ 9pm Restart home Metoprolol, may need increase to BID Monitor on tele - transfer order entered labs, cbc cmp, lactic, trops Echo ordered Repeat ekg after lopressor push shoes sinus tachy 110s Cardiology consult
[2017-10-31] MEDS ORDERED: metoPROLOL SUCCINATE 25 MG TAB.SR.24H (FP) PO ONE (19:15)
[2017-10-31] MEDS ORDERED: BENZOCAINE 28 GM HEMORRHOIDAL OINTMENT PR PRN (19:42)
[2017-10-31] MEDS ORDERED: WITCH HAZEL 50% (TUCKS) 40 PAD/JAR PAD TP PRN (19:42)
[2017-10-31 20:43] LABS: BASO % 0.7 % (0-2.0); EOS % 0.5 % (0-4.5); HEMATOCRIT 35.7 % (32.4-45.2); HEMOGLOBIN 11.6 GM/dL (10.7-15.3); LYMPH % 28.8 % (8-40); MCH 29.7 pg (25.7-33.7); MCHC 32.5 g/dl (32.0-36.0); MEAN CELL VOLUME 91.6 fl (80-96); MEAN PLT VOLUME 9.2 fl (7.5-11.1); MONO % 5.6 % (3.8-10.2); NEUT % 64.4 % (42.8-82.8); PLATELET COUNT 255 K/MM3 (134-434); WHITE BLOOD COUNT 7.3 K/mm3 (4.0-10.0)
[2017-10-31 21:06] LABS: ALBUMIN 3.3 g/dl (3.4-5.0); ANION GAP 7 (8-16); BILIRUBIN,TOTAL 0.4 mg/dL (0.2-1.0); BLOOD UREA NITROGEN 16 mg/dL (7-18); CALCIUM 7.9 mg/dL (8.5-10.1); CHLORIDE 110 mmol/L (98-107); CO2 27 mmol/L (21-32); CREATININE 0.6 mg/dL (0.55-1.02); GLUCOSE,RANDOM 129 mg/dL (74-106); MAGNESIUM 2.1 mg/dL (1.8-2.4); POTASSIUM 3.7 mmol/L (3.5-5.1); SGOT/AST 43 U/L (15-37); SGPT/ALT 123 U/L (12-78); SODIUM 144 mmol/L (136-145); TOT PROT 6.2 g/dl (6.4-8.2)
[2017-10-31 21:08] LABS: ALK PHOS 64 U/L (45-117)
[2017-10-31] MEDS: metoPROLOL SUCCINATE 25 MG TAB.SR.24H (FP) PO SCH (22:15)
[2017-11-01] MEDS: POLYETHYLENE GLYCOL 3350 119 GM BTL PO SCH ×3 (06:21→22:18)
[2017-11-01] MEDS: DOCUSATE SODIUM 100 MG CAPSULE (FP) PO SCH ×3 (06:21→22:17)
--- NOTE | 2017-11-01 09:07 | PN ---
Progress Note, Physician History of Present Illness: better this am no further palpitations - Current Medication List Current Medications: Active Medications Benzocaine (Americaine Ointment -) 1 applic [place] DAILY PRN PRN Reason: HEMORRHOIDS Cyclobenzaprine HCl (Flexeril -) 5 mg PO DAILY [facility] Docusate Sodium (Colace -) 100 mg PO TID [facility] Last Admin: 11/01/17 06:21 Dose: 100 mg Gabapentin (Neurontin -) 300 mg PO BID [facility] Last Admin: 10/31/17 22:15 Dose: 300 mg Hydrocortisone (Anusol 2.5% Hc Cream -) 1 applic TP BID [facility] Last Admin: 10/31/17 22:22 Dose: 1 applic Metoprolol Succinate (Toprol Xl -) 25 mg PO DAILY [facility] Last Admin: 10/31/17 22:15 Dose: 25 mg Multivitamins/Minerals (Theragran-M) 1 each PO DAILY [facility] Pantoprazole Sodium (Protonix -) 40 mg PO DAILY [facility] Polyethylene Glycol (Miralax (For Daily Use) -) 17 gm PO TID [facility] Last Admin: 11/01/17 06:21 Dose: Not Given Rivaroxaban (Xarelto -) 20 mg PO DAILY@1800 [facility] Thiamine HCl (Vitamin B1 -) 100 mg PO DAILY [facility] Witch Bettye/Glycerin (Tucks Pads -) 1 pad TP PRN PRN PRN Reason: hemmoroids - Objective Vital Signs: Vital Signs Temperature 98 F 11/01/17 08:02 Pulse Rate 86 11/01/17 08:02 Respiratory Rate 18 11/01/17 08:02 Blood Pressure 123/84 11/01/17 08:02 O2 Sat by Pulse Oximetry (%) 100 10/31/17 21:00 Cardiovascular: Yes: Regular Rate and Rhythm Respiratory: Yes: Regular, CTA Bilaterally Gastrointestinal: Yes: Normal Bowel Sounds, Soft Labs: CBC, BMP 10/31/17 20:00 10/31/17 20:00 INR, PTT INR 2.86 (0.82-1.09) H 10/24/17 14:00 Assessment/Plan - Problems (1) H/O gastric bypass Assessment/Plan: s/p gastric sleeve now having numbness symptoms check vitamin levels-pending PMR neuro consult appreicated started on neurontin Code(s): Z98.84 - BARIATRIC SURGERY STATUS (2) Lower extremity weakness Assessment/Plan: MRI brain and CT scan negative LS MRI done show 3 disc bulges-no back pain started on gabapentin will start on thiamine as well PT eval b12 level normal started on medrol pack- leg weakness improving will check b6 level as well Code(s): R29.898 - OTH SYMPTOMS AND SIGNS INVOLVING THE MUSCULOSKELETAL SYSTEM Qualifiers: Laterality: bilateral Qualified Code(s): R29.898 - Other symptoms and signs involving the musculoskeletal system (3) Unable to ambulate Assessment/Plan: r/o vitamin deficiency neuro and surgery saw the patient thiamine started PT eval on neurontin medrol pack -leg weaknes improving awaiting rehab / escalera placement Code(s): R26.2 - DIFFICULTY IN WALKING, NOT ELSEWHERE CLASSIFIED (4) Pancreatitis Assessment/Plan: h/o pancreatitis trend lipase seen by Dr rodgers in past will have him see patient- eval noted patient tolerating regular diet Code(s): K85.90 - ACUTE PANCREATITIS WITHOUT NECROSIS OR INFECTION, UNSP Qualifiers: Chronicity: acute Pancreatitis type: other Acute pancreatitis complication: no infection or necrosis Qualified Code(s): K85.80 - Other acute pancreatitis without necrosis or infection (5) Portal vein thrombosis Assessment/Plan: on xarelto heme follow up-rescheduled as patient will go to rehab Code(s): I81 - PORTAL VEIN THROMBOSIS (6) Palpitations Assessment/Plan: on metoprolo has hpstory of tachycardia on metoprolol echo cardio
[2017-11-01 09:27] LABS: EOS % 1.4 % (0-4.5); HEMOGLOBIN 11.9 GM/dL (10.7-15.3); MEAN CELL VOLUME 92.2 fl (80-96); MEAN PLT VOLUME 9.1 fl (7.5-11.1); RDW 16.8 % (11.6-15.6)
[2017-11-01 09:30] LABS: BASO % 0.7 % (0-2.0); HEMATOCRIT 36.9 % (32.4-45.2); LYMPH % 47.9 % (8-40); MCH 29.9 pg (25.7-33.7); MCHC 32.4 g/dl (32.0-36.0); PLATELET COUNT 241 K/MM3 (134-434); WHITE BLOOD COUNT 7.6 K/mm3 (4.0-10.0)
[2017-11-01] MEDS: THIAMINE HCL 100 MG TABLET (FP) PO SCH (09:30)
[2017-11-01] MEDS: MULTIVITAMINS THER W-MINERALS COMBO TABLET (FP) PO SCH (09:31)
[2017-11-01] MEDS: CYCLOBENZAPRINE HCL 10 MG TABLET (FP) PO SCH (09:31)
[2017-11-01] MEDS: metoPROLOL SUCCINATE 25 MG TAB.SR.24H (FP) PO SCH (09:31)
[2017-11-01] MEDS: GABAPENTIN 300 MG CAPSULE (FP) PO SCH ×2 (09:31→22:17)
[2017-11-01] MEDS: PANTOPRAZOLE 40 MG TABLET (FP) PO SCH (09:31)
--- NOTE | 2017-11-01 09:38 | PN ---
Progress Note (short form) - Note Progress Note: Neurology History of Present Illness 27-year-old female, history of hypertension, status post gastric sleeve 2016, C/B PVT, on xarelto, on calcium supplements, pancreatitis, denies ETOH use , p/w a constellation of symptoms including diffuse numbness with severe weakness to bilateral lower extremity and stated she has not been able to ambulate for several days. Also complaining of lidia-oral tingling with dizziness, vague headache and possible blurry vision. She reported that since her gastric sleeve surgery, she has had intermittent diffuse weakness that has gradually worsened. No slurred speech, nausea, vomiting, fever, abdominal pain , change in bowel movements, easy bleeding or bruising, mood changes or periods of confusion. She completed MRI brain and no significant abnormalities noted. She reports leg numbness in the past was helped by gabapentin and started this for her. Is reporting improvement in sensory symptoms. Also elevated legs off bed more strongly again today, completed MRI T and L spine. Reported reviewed and L4/L5 disc ridge appreciated, disc extrution, contacting S1 root on the L. gabapentin has been helpful. NSGY consulted and did not recommend surgical intervention. Patient being considered for [facility] and interested in rehab. Patient tachycardic overnight and moved to telemetry bed. Is providing improved strength now after some treatment. Patient eager to start therapy. Active Medications Generic Name Dose Route Start Last Admin Trade Name Freq PRN Reason Stop Dose Admin Benzocaine 1 applic 10/31/17 19:42 Americaine Ointment - [place] DAILY PRN HEMORRHOIDS Cyclobenzaprine HCl 5 mg 11/01/17 10:00 11/01/17 09:31 Flexeril - PO 5 mg DAILY [facility] Administration Docusate Sodium 100 mg 10/31/17 22:00 11/01/17 06:21 Colace - PO 100 mg TID [facility] Administration Gabapentin 300 mg 10/31/17 22:00 11/01/17 09:31 Neurontin - PO 300 mg BID [facility] Administration Hydrocortisone 1 applic 10/31/17 22:00 10/31/17 22:22 Anusol 2.5% Hc Cream - TP 1 applic BID [facility] Administration Metoprolol Succinate 25 mg 10/31/17 21:30 11/01/17 09:31 Toprol Xl - PO 25 mg DAILY [facility] Administration Multivitamins/Minerals 1 each 11/01/17 10:00 11/01/17 09:31 Theragran-M PO 1 each DAILY [facility] Administration Pantoprazole Sodium 40 mg 11/01/17 10:00 11/01/17 09:31 Protonix - PO 40 mg DAILY [facility] Administration Polyethylene Glycol 17 gm 10/31/17 22:00 11/01/17 06:21 Miralax (For Daily Use) - PO Not Given TID [facility] Rivaroxaban 20 mg 11/01/17 18:00 Xarelto - PO DAILY@1800 [facility] Thiamine HCl 100 mg 11/01/17 10:00 11/01/17 09:30 Vitamin B1 - PO 100 mg DAILY [facility] Administration Witch Bettye/Glycerin 1 pad 10/31/17 19:42 Tucks Pads - TP PRN PRN hemmoroids *Physical Exam Vital Signs Temperature 98 F 11/01/17 08:02 Pulse Rate 86 11/01/17 08:02 Respiratory Rate 18 11/01/17 08:02 Blood Pressure 123/84 11/01/17 08:02 O2 Sat by Pulse Oximetry (%) 100 10/31/17 21:00 - Physical Exam General Appearance: Yes: Appropriately Dressed. No: Apparent Distress HEENT: positive: Normal Voice Neck: positive: Supple Respiratory/Chest: positive: Lungs Clear, Normal Breath Sounds. negative: Respiratory Distress Cardiovascular: positive: Regular Rate, S1, S2 Gastrointestinal/Abdominal: positive: Soft. 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 gait deferred CBCD WBC 7.6 K/mm3 (4.0-10.0) 11/01/17 06:05 RBC 4.00 M/mm3 (3.60-5.2) 11/01/17 06:05 Hgb 11.9 GM/dL (10.7-15.3) 11/01/17 06:05 Hct 36.9 % (32.4-45.2) 11/01/17 06:05 MCV 92.2 fl (80-96) 11/01/17 06:05 MCHC 32.4 g/dl (32.0-36.0) 11/01/17 06:05 RDW 16.8 % (11.6-15.6) H 11/01/17 06:05 Plt Count 241 K/MM3 (134-434) 11/01/17 06:05 MPV 9.1 fl (7.5-11.1) 11/01/17 06:05 CMP Sodium 144 mmol/L (136-145) 10/31/17 20:00 Potassium 3.7 mmol/L (3.5-5.1) 10/31/17 20:00 Chloride 110 mmol/L (98-107) H 10/31/17 20:00 Carbon Dioxide 27 mmol/L (21-32) 10/31/17 20:00 Anion Gap 7 (8-16) L 10/31/17 20:00 BUN 16 mg/dL (7-18) 10/31/17 20:00 Creatinine 0.6 mg/dL (0.55-1.02) 10/31/17 20:00 Creat Clearance w eGFR > 60 (>60) 10/31/17 20:00 Calcium 7.9 mg/dL (8.5-10.1) L 10/31/17 20:00 Total Bilirubin 0.4 mg/dL (0.2-1.0) D 10/31/17 20:00 AST 43 U/L (15-37) H 10/31/17 20:00 ALT 123 U/L (12-78) H 10/31/17 20:00 Alkaline Phosphatase 64 U/L (45-117) 10/31/17 20:00 Total Protein 6.2 g/dl (6.4-8.2) L 10/31/17 20:00 Albumin 3.3 g/dl (3.4-5.0) L 10/31/17 20:00 MRI brain reviewed MRI T and L spine reviewed Plan 27-year-old female, history of hypertension, status post gastric sleeve 2016, C/B PVT, on xarelto, on calcium supplements, pancreatitis, denies ETOH use , p/w a constellation of symptoms including diffuse numbness with severe weakness to bilateral lower extremity and states she has not been able to ambulate for several days. Also complaining of lidia-oral tingling with dizziness, vague headache and possible blurry vision. She reports that since her gastric sleeve surgery, she has had intermittent diffuse weakness that has gradually worsened. No slurred speech, nausea, vomiting, fever, abdominal pain , change in bowel movements, easy bleeding or bruising, mood changes or periods of confusion. She completed MRI brain and no significant abnormalities noted. MRI T and L spine reviewed Gabapentin helping, continue current dose Physcial therapy On thiamine as well NSGY input appreciated rehab placement, possibly jw On tele for tachycardia Fall precautions
[2017-11-01 09:47] LABS: ALBUMIN 3.4 g/dl (3.4-5.0); ALK PHOS 57 U/L (45-117); ANION GAP 6 (8-16); BILIRUBIN,TOTAL 0.7 mg/dL (0.2-1.0); BLOOD UREA NITROGEN 16 mg/dL (7-18); CALCIUM 8.1 mg/dL (8.5-10.1); CHLORIDE 111 mmol/L (98-107); CO2 28 mmol/L (21-32); CREATININE 0.7 mg/dL (0.55-1.02); GLUCOSE,RANDOM 74 mg/dL (74-106); POTASSIUM 3.6 mmol/L (3.5-5.1); SGOT/AST 41 U/L (15-37); SGPT/ALT 124 U/L (12-78); SODIUM 145 mmol/L (136-145); TOT PROT 6.1 g/dl (6.4-8.2)
[2017-11-01] MEDS ORDERED: metoPROLOL SUCCINATE 25 MG TAB.SR.24H (FP) PO SCH (10:00)
[2017-11-01] MEDS: HYDROCORTISONE 2.5% TOPICAL CREAM 30 GM TUBE TP SCH ×2 (10:16→22:17)
--- NOTE | 2017-11-01 11:11 | CON.CARD ---
Consult Consult Specialty:: Cardiology Referred by:: Moe Reason for Consultation:: palpitations - History of Present Illness Chief Complaint: leg weakness, palpitations History of Present Illness: She is a 27-year-old female, history of hypertension, morbid obesity s/p gastric sleeve 08/11/17, complicated by portal vein thrombosis on Xarelto, h/o pancreatitis, admitted with diffuse numbness with severe weakness to bilateral lower extremity and states she has not been able to ambulate for several days. Workup has been nonspecific, noted last night 10/31/17 with palpitations described as a rapid heart beat, brief without chest pain or dizziness. No orthopnea, pnd or edema. Baseline exercise tolerance is good, but not recently. She has been seen by a spouting installer in the past for elevated HR, on metoprolol. ECG at the time showed sinus tachycardia. Stress echo May 2017 was normal. 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 Home Medications - Allergies Allergies/Adverse Reactions: Allergies Allergy/AdvReac Type Severity Reaction Status Date / Time No Known Allergies Allergy Verified 10/24/17 12:04 - Home Medications Home Medications: Ambulatory Orders Calcium Carbonate [Calcium] 500 mg PO DAILY 09/20/17 Cholecalciferol (Vitamin D3) [Dialyvite Vitamin D] 5,000 unit PO DAILY 09/20/17 Famotidine [Pepcid] 20 mg PO BID 09/20/17 Omeprazole Magnesium [Prilosec Otc] 40 mg PO DAILY 09/20/17 Dicyclomine HCl [Bentyl -] 20 mg PO QID PRN 10/24/17 Losartan Potassium 50 mg PO DAILY 10/24/17 Metoprolol Succinate [Toprol Xl] 25 mg PO DAILY 10/24/17 Rivaroxaban [Xarelto -] 20 mg PO DAILY 10/24/17 Sennosides [Senna] 8.6 mg PO HS PRN 10/24/17 Review of Systems - Review of Systems Constitutional: reports: No Symptoms Vital Signs: Vital Signs Temperature 98 F 11/01/17 08:02 Pulse Rate 86 11/01/17 08:02 Respiratory Rate 18 11/01/17 08:02 Blood Pressure 123/84 11/01/17 08:02 O2 Sat by Pulse Oximetry (%) 100 11/01/17 08:00 Constitutional: Yes: Well Nourished, No Distress Eyes: Yes: Conjunctiva Clear, Ptosis HENT: Yes: Atraumatic, Normocephalic Neck: Yes: Supple, Trachea Midline Respiratory: Yes: CTA Bilaterally Gastrointestinal: Yes: Normal Bowel Sounds, Soft, Abdomen, Obese Cardiovascular: Yes: Regular Rate and Rhythm JVD: No Carotid Bruit: No PMI: Non-Displaced Heart Sounds: Yes: S1, S2 Extremities: Yes: WNL Edema: No Peripheral Pulses WNL: Yes - Other Data Labs, Other Data: CBC, BMP 11/01/17 06:05 11/01/17 06:05 INR, PTT INR 2.86 (0.82-1.09) H 10/24/17 14:00 Troponin, BNP 10/31/17 11/01/17 11/01/17 20:00 01:20 06:05 Troponin I < 0.02 < 0.02 < 0.02 Troponin, BNP 10/31/17 11/01/17 11/01/17 20:00 01:20 06:05 Troponin I < 0.02 < 0.02 < 0.02 Imaging - Results EKG: Report Reviewed (sinus tachycardia nssttw changes.) Problem List - Problems (1) Sinus tachycardia Assessment/Plan: Her ECG is benign, sinus tachycardia is a "noncardiac arrhythmia". Would continue Xarelto. Continue metoprolol. Outpatient follow up. No need for inpt cardiac testing. Code(s): R00.0 - TACHYCARDIA, UNSPECIFIED
--- NOTE | 2017-11-01 12:57 | EKG ---
Test Reason : Blood Pressure : / mmHG Vent. Rate : 081 BPM Atrial Rate : 081 BPM P-R Int : 158 ms QRS Dur : 090 ms QT Int : 372 ms P-R-T Axes : 041 -10 019 degrees QTc Int : 432 ms NORMAL SINUS RHYTHM NORMAL ECG Confirmed by Prince Orellana MD ([id number]) on 11/01/2017 12:56:59 PM Referred By: Dayna CHASE Confirmed By:Prince Orellana MD
--- NOTE | 2017-11-01 12:58 | EKG ---
Test Reason : Blood Pressure : / mmHG Vent. Rate : 149 BPM Atrial Rate : 149 BPM P-R Int : 126 ms QRS Dur : 076 ms QT Int : 324 ms P-R-T Axes : 062 -14 044 degrees QTc Int : 510 ms SINUS TACHYCARDIA SEPTAL INFARCT , AGE UNDETERMINED ABNORMAL ECG Confirmed by Prince Orellana MD ([id number]) on 11/01/2017 12:58:06 PM Referred By: Confirmed By:Prince Orellana MD
[2017-11-01] MEDS: RIVAROXABAN 20 MG TABLET PO SCH (17:39)
[2017-11-01] MEDS ORDERED: MAGNESIUM CITRATE 300 ML BOTTLE PO ONE (18:00)
[2017-11-01] MEDS ORDERED: PT OWN MED DRAWER 7, Y5N ONE (21:04)
[2017-11-02] MEDS: DOCUSATE SODIUM 100 MG CAPSULE (FP) PO SCH ×3 (05:45→21:37)
[2017-11-02] MEDS: POLYETHYLENE GLYCOL 3350 119 GM BTL PO SCH ×3 (05:46→21:38)
--- NOTE | 2017-11-02 08:54 | PN ---
Progress Note, Physician History of Present Illness: better this am no further palpitations - Current Medication List Current Medications: Active Medications Benzocaine (Americaine Ointment -) 1 applic [place] DAILY PRN PRN Reason: HEMORRHOIDS Last Admin: 11/01/17 22:21 Dose: 1 applic Cyclobenzaprine HCl (Flexeril -) 5 mg PO DAILY [facility] Last Admin: 11/01/17 09:31 Dose: 5 mg Docusate Sodium (Colace -) 100 mg PO TID [facility] Last Admin: 11/02/17 05:45 Dose: Not Given Gabapentin (Neurontin -) 300 mg PO BID [facility] Last Admin: 11/01/17 22:17 Dose: 300 mg Hydrocortisone (Anusol 2.5% Hc Cream -) 1 applic TP BID [facility] Last Admin: 11/01/17 22:17 Dose: Not Given Metoprolol Succinate (Toprol Xl -) 25 mg PO DAILY [facility] Last Admin: 11/01/17 09:31 Dose: 25 mg Multivitamins/Minerals (Theragran-M) 1 each PO DAILY [facility] Last Admin: 11/01/17 09:31 Dose: 1 each Pantoprazole Sodium (Protonix -) 40 mg PO DAILY [facility] Last Admin: 11/01/17 09:31 Dose: 40 mg Polyethylene Glycol (Miralax (For Daily Use) -) 17 gm PO TID [facility] Last Admin: 11/02/17 05:46 Dose: Not Given Rivaroxaban (Xarelto -) 20 mg PO DAILY@1800 [facility] Last Admin: 11/01/17 17:39 Dose: 20 mg Thiamine HCl (Vitamin B1 -) 100 mg PO DAILY [facility] Last Admin: 11/01/17 09:30 Dose: 100 mg Witch Bettye/Glycerin (Tucks Pads -) 1 pad TP PRN PRN PRN Reason: hemmoroids - Objective Vital Signs: Vital Signs Temperature 98 F 11/02/17 06:00 Pulse Rate 82 11/02/17 06:00 Respiratory Rate 14 11/02/17 06:00 Blood Pressure 112/71 11/02/17 06:00 O2 Sat by Pulse Oximetry (%) 100 11/01/17 21:00 Cardiovascular: Yes: Regular Rate and Rhythm Respiratory: Yes: Regular, CTA Bilaterally Gastrointestinal: Yes: Normal Bowel Sounds, Soft. No: Tenderness Edema: No Neurological: Yes: Paresthesia, Pre-Existing Deficit, Weakness Labs: CBC, BMP 11/01/17 06:05 11/01/17 06:05 INR, PTT INR 2.86 (0.82-1.09) H 10/24/17 14:00 Assessment/Plan - Problems (1) H/O gastric bypass Assessment/Plan: s/p gastric sleeve now having numbness symptoms check vitamin levels-pending PMR neuro consult appreicated started on neurontin Code(s): Z98.84 - BARIATRIC SURGERY STATUS (2) Lower extremity weakness Assessment/Plan: MRI brain and CT scan negative LS MRI done show 3 disc bulges-no back pain started on gabapentin EMG polyneuropathy add b6 on thiamine as well PT b12 level normal started on medrol pack- leg weakness improving will check b6 level as well Code(s): R29.898 - OTH SYMPTOMS AND SIGNS INVOLVING THE MUSCULOSKELETAL SYSTEM Qualifiers: Laterality: bilateral Qualified Code(s): R29.898 - Other symptoms and signs involving the musculoskeletal system (3) Unable to ambulate Assessment/Plan: r/o vitamin deficiency neuro and surgery saw the patient thiamine started PT eval on neurontin medrol pack -leg weaknes improving awaiting rehab / escalera placement Code(s): R26.2 - DIFFICULTY IN WALKING, NOT ELSEWHERE CLASSIFIED (4) Pancreatitis Assessment/Plan: h/o pancreatitis trend lipase seen by Dr rodgers in past will have him see patient- eval noted patient tolerating regular diet Code(s): K85.90 - ACUTE PANCREATITIS WITHOUT NECROSIS OR INFECTION, UNSP Qualifiers: Chronicity: acute Pancreatitis type: other Acute pancreatitis complication: no infection or necrosis Qualified Code(s): K85.80 - Other acute pancreatitis without necrosis or infection (5) Portal vein thrombosis Assessment/Plan: on xarelto heme follow up-rescheduled as patient will go to rehab Code(s): I81 - PORTAL VEIN THROMBOSIS (6) Palpitations Assessment/Plan: on metoprolol has hpstory of tachycardia on metoprolol echo cardio noted
--- NOTE | 2017-11-02 09:54 | PN ---
Progress Note (short form) - Note Progress Note: Neurology History of Present Illness 27-year-old female, history of hypertension, status post gastric sleeve 2016, C/B PVT, on xarelto, on calcium supplements, pancreatitis, denies ETOH use , p/w a constellation of symptoms including diffuse numbness with severe weakness to bilateral lower extremity and stated she has not been able to ambulate for several days. Also complaining of lidia-oral tingling with dizziness, vague headache and possible blurry vision. She reported that since her gastric sleeve surgery, she has had intermittent diffuse weakness that has gradually worsened. No slurred speech, nausea, vomiting, fever, abdominal pain , change in bowel movements, easy bleeding or bruising, mood changes or periods of confusion. She completed MRI brain and no significant abnormalities noted. She reports leg numbness in the past was helped by gabapentin and started this for her. Is reporting improvement in sensory symptoms. Also elevated legs off bed more strongly again today, completed MRI T and L spine. Reported reviewed and L4/L5 disc ridge appreciated, disc extrution, contacting S1 root on the L. gabapentin has been helpful. NSGY consulted and did not recommend surgical intervention. Patient being considered for [facility] and interested in rehab. Is providing improved strength now after some treatment. Patient eager to start therapy. She mentioned having EMG/NCS but did not see report in the chart. Showed me cell phone photo of report which shows possible peripheral neuropathy 2/2 vitamin deficiency. Did not show evidence of radiculopathy. Active Medications Benzocaine (Americaine Ointment -) 1 applic [place] DAILY PRN PRN Reason: HEMORRHOIDS Last Admin: 11/01/17 22:21 Dose: 1 applic Cyclobenzaprine HCl (Flexeril -) 5 mg PO DAILY [facility] Last Admin: 11/01/17 09:31 Dose: 5 mg Docusate Sodium (Colace -) 100 mg PO TID [facility] Last Admin: 11/02/17 05:45 Dose: Not Given Gabapentin (Neurontin -) 300 mg PO BID [facility] Last Admin: 11/01/17 22:17 Dose: 300 mg Hydrocortisone (Anusol 2.5% Hc Cream -) 1 applic TP BID [facility] Last Admin: 11/01/17 22:17 Dose: Not Given Metoprolol Succinate (Toprol Xl -) 25 mg PO DAILY [facility] Last Admin: 11/01/17 09:31 Dose: 25 mg Multivitamins/Minerals (Theragran-M) 1 each PO DAILY [facility] Last Admin: 11/01/17 09:31 Dose: 1 each Pantoprazole Sodium (Protonix -) 40 mg PO DAILY [facility] Last Admin: 11/01/17 09:31 Dose: 40 mg Polyethylene Glycol (Miralax (For Daily Use) -) 17 gm PO TID [facility] Last Admin: 11/02/17 05:46 Dose: Not Given Pyridoxine HCl (Vitamin B6 Injection -) 100 mg IM DAILY [facility] Rivaroxaban (Xarelto -) 20 mg PO DAILY@1800 [facility] Last Admin: 11/01/17 17:39 Dose: 20 mg Thiamine HCl (Vitamin B1 -) 100 mg PO DAILY [facility] Last Admin: 11/01/17 09:30 Dose: 100 mg Witch Bettye/Glycerin (Tucks Pads -) 1 pad TP PRN PRN PRN Reason: hemmoroids *Physical Exam Vital Signs Temperature 98 F 11/02/17 06:00 Pulse Rate 82 11/02/17 06:00 Respiratory Rate 14 11/02/17 06:00 Blood Pressure 112/71 11/02/17 06:00 O2 Sat by Pulse Oximetry (%) 100 11/01/17 21:00 - Physical Exam General Appearance: Yes: Appropriately Dressed. No: Apparent Distress HEENT: positive: Normal Voice Neck: positive: Supple Respiratory/Chest: positive: Lungs Clear, Normal Breath Sounds. negative: Respiratory Distress Cardiovascular: positive: Regular Rate, S1, S2 Gastrointestinal/Abdominal: positive: Soft. 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 gait deferred CBCD WBC 7.6 K/mm3 (4.0-10.0) 11/01/17 06:05 RBC 4.00 M/mm3 (3.60-5.2) 11/01/17 06:05 Hgb 11.9 GM/dL (10.7-15.3) 11/01/17 06:05 Hct 36.9 % (32.4-45.2) 11/01/17 06:05 MCV 92.2 fl (80-96) 11/01/17 06:05 MCHC 32.4 g/dl (32.0-36.0) 11/01/17 06:05 RDW 16.8 % (11.6-15.6) H 11/01/17 06:05 Plt Count 241 K/MM3 (134-434) 11/01/17 06:05 MPV 9.1 fl (7.5-11.1) 11/01/17 06:05 CMP Sodium 145 mmol/L (136-145) 11/01/17 06:05 Potassium 3.6 mmol/L (3.5-5.1) 11/01/17 06:05 Chloride 111 mmol/L (98-107) H 11/01/17 06:05 Carbon Dioxide 28 mmol/L (21-32) 11/01/17 06:05 Anion Gap 6 (8-16) L 11/01/17 06:05 BUN 16 mg/dL (7-18) 11/01/17 06:05 Creatinine 0.7 mg/dL (0.55-1.02) 11/01/17 06:05 Creat Clearance w eGFR > 60 (>60) 11/01/17 06:05 Calcium 8.1 mg/dL (8.5-10.1) L 11/01/17 06:05 Total Bilirubin 0.7 mg/dL (0.2-1.0) D 11/01/17 06:05 AST 41 U/L (15-37) H 11/01/17 06:05 ALT 124 U/L (12-78) H 11/01/17 06:05 Alkaline Phosphatase 57 U/L (45-117) 11/01/17 06:05 Total Protein 6.1 g/dl (6.4-8.2) L 11/01/17 06:05 Albumin 3.4 g/dl (3.4-5.0) 11/01/17 06:05 MRI brain reviewed MRI T and L spine reviewed Plan 27-year-old female, history of hypertension, status post gastric sleeve 2016, C/B PVT, on xarelto, on calcium supplements, pancreatitis, denies ETOH use , p/w a constellation of symptoms including diffuse numbness with severe weakness to bilateral lower extremity and states she has not been able to ambulate for several days. Also complaining of lidia-oral tingling with dizziness, vague headache and possible blurry vision. She reports that since her gastric sleeve surgery, she has had intermittent diffuse weakness that has gradually worsened. No slurred speech, nausea, vomiting, fever, abdominal pain , change in bowel movements, easy bleeding or bruising, mood changes or periods of confusion. She completed MRI brain and no significant abnormalities noted. MRI T and L spine reviewed EMG report reviewed, consistent with neuropathy No evidence of LS radiculopathy Gabapentin helping, continue current dose Physcial therapy On thiamine as well NSGY input appreciated rehab placement, possibly escalera On tele for tachycardia Fall precautions
[2017-11-02] MEDS: GABAPENTIN 300 MG CAPSULE (FP) PO SCH ×2 (10:06→21:37)
[2017-11-02] MEDS: PANTOPRAZOLE 40 MG TABLET (FP) PO SCH (10:06)
[2017-11-02] MEDS: MULTIVITAMINS THER W-MINERALS COMBO TABLET (FP) PO SCH (10:06)
[2017-11-02] MEDS: THIAMINE HCL 100 MG TABLET (FP) PO SCH (10:07)
[2017-11-02] MEDS: CYCLOBENZAPRINE HCL 10 MG TABLET (FP) PO SCH ×2 (10:07→10:32)
[2017-11-02] MEDS: PYRIDOXINE HCL 100 MG/1 ML VIAL IM SCH (10:09)
[2017-11-02] MEDS: HYDROCORTISONE 2.5% TOPICAL CREAM 30 GM TUBE TP SCH ×2 (10:09→21:38)
[2017-11-02] MEDS: metoPROLOL SUCCINATE 25 MG TAB.SR.24H (FP) PO SCH (10:09)
--- NOTE | 2017-11-02 10:59 | PN ---
Progress Note (short form) - Note Progress Note: No new events Tolerating diet No abdominal pain All vitamin levels sent WNL Vitamin B6 pending Vital Signs Period Temp Pulse Resp BP Sys/Nguyễn Pulse Ox Last 24 Hr 98 F-99.3 F 82-108 14-18 112-125/65-76 100 Abd soft, NT Continue current care Diet as tolerated Problem List - Problems (1) Lower extremity weakness Code(s): R29.898 - OTH SYMPTOMS AND SIGNS INVOLVING THE MUSCULOSKELETAL SYSTEM Qualifiers: Laterality: bilateral Qualified Code(s): R29.898 - Other symptoms and signs involving the musculoskeletal system (2) Unable to ambulate Code(s): R26.2 - DIFFICULTY IN WALKING, NOT ELSEWHERE CLASSIFIED
--- NOTE | 2017-11-02 17:11 | EKG ---
Test Reason : Blood Pressure : / mmHG Vent. Rate : 110 BPM Atrial Rate : 111 BPM P-R Int : 140 ms QRS Dur : 086 ms QT Int : 336 ms P-R-T Axes : 058 -05 060 degrees QTc Int : 454 ms SINUS TACHYCARDIA SEPTAL INFARCT (CITED ON OR BEFORE 31-OCT-2017) ABNORMAL ECG WHEN COMPARED WITH ECG OF 31-OCT-2017 18:44, NO SIGNIFICANT CHANGE WAS FOUND Confirmed by BRYAN MARTINES MD ([id number]) on 11/02/2017 5:10:59 PM Referred By: Confirmed By:BRYAN MARTINES MD
[2017-11-02] MEDS: RIVAROXABAN 20 MG TABLET PO SCH (17:13)
[2017-11-03 05:51] VITALS: TEMP 98.1
[2017-11-03] MEDS: DOCUSATE SODIUM 100 MG CAPSULE (FP) PO SCH (05:53)
[2017-11-03] MEDS: POLYETHYLENE GLYCOL 3350 119 GM BTL PO SCH (05:53)
--- NOTE | 2017-11-03 08:44 | DS ---
Physical Examination Vital Signs: Vital Signs Temperature 98.1 F 11/03/17 05:50 Pulse Rate 72 11/03/17 05:50 Respiratory Rate 20 11/03/17 05:50 Blood Pressure 118/70 11/03/17 05:50 O2 Sat by Pulse Oximetry (%) 99 11/02/17 21:00 Cardiovascular: Yes: Regular Rate and Rhythm Respiratory: Yes: Regular, CTA Bilaterally Gastrointestinal: Yes: Normal Bowel Sounds, Soft Neurological: Yes: Alert, Oriented, Pre-Existing Deficit, Tingling, Unsteady Gait, Weakness Labs: CBC, BMP 11/01/17 06:05 11/01/17 06:05 Discharge Summary Reason For Visit: WEAKNESS OF LOWER EXTREMITIES Current Active Problems Biliary acute pancreatitis (Acute) Gastric bypass status for obesity (Acute) H/O gastric bypass (Acute) Lower extremity weakness (Acute) Pancreas divisum (Acute) Sinus tachycardia (Acute) Unable to ambulate (Acute) Hospital Course: 27-year-old female, history of hypertension, status post gastric sleeve 2016, on xarelto, on calcium supplements, pancreatitis, denies ETOH use, p/w a constellation of symptoms including diffuse numbness with severe weakness to bilateral lower extremity and states she has not been able to ambulate for several days. Also complaining of lidia-oral tingling with dizziness, vague headache and possible blurry vision. She reports that since her gastric sleeve surgery, she has had intermittent diffuse weakness that has gradually worsened. No slurred speech, nausea, vomiting, fever, abdominal pain, change in bowel movements, easy bleeding or bruising, mood changes or periods of confusion. She completed MRI brain and no significant abnormalities noted. per patient her legs feel heavy and hard and when she tries to bear weight she falls bc legs give way History Source: Patient - Past Medical History Cardiovascular: Yes: HTN ...LMP: 07/11/17 - Past Surgical History Past Surgical History: Yes: Bariatric Surgery (Sleeve gastrectomy) - Smoking History Smoking history: Never smoked - Problems (1) H/O gastric bypass Assessment/Plan: s/p gastric sleeve now having numbness symptoms check vitamin levels-pending PMR neuro consult appreicated started on neurontin Code(s): Z98.84 - BARIATRIC SURGERY STATUS (2) Lower extremity weakness Assessment/Plan: MRI brain and CT scan negative LS MRI done show 3 disc bulges-no back pain started on gabapentin EMG polyneuropathy add b6 on thiamine as well PT b12 level normal started on medrol pack- leg weakness improving will check b6 level as well Code(s): R29.898 - OTH SYMPTOMS AND SIGNS INVOLVING THE MUSCULOSKELETAL SYSTEM Qualifiers: Laterality: bilateral Qualified Code(s): R29.898 - Other symptoms and signs involving the musculoskeletal system (3) Unable to ambulate Assessment/Plan: r/o vitamin deficiency neuro and surgery saw the patient thiamine started PT eval on neurontin medrol pack -leg weaknes improving awaiting rehab / escalera placement Code(s): R26.2 - DIFFICULTY IN WALKING, NOT ELSEWHERE CLASSIFIED (4) Pancreatitis Assessment/Plan: h/o pancreatitis trend lipase seen by Dr rodgers in past will have him see patient- eval noted patient tolerating regular diet Code(s): K85.90 - ACUTE PANCREATITIS WITHOUT NECROSIS OR INFECTION, UNSP Qualifiers: Chronicity: acute Pancreatitis type: other Acute pancreatitis complication: no infection or necrosis Qualified Code(s): K85.80 - Other acute pancreatitis without necrosis or infection (5) Portal vein thrombosis Assessment/Plan: on xarelto heme follow up-rescheduled as patient will go to rehab Code(s): I81 - PORTAL VEIN THROMBOSIS (6) Palpitations Assessment/Plan: on metoprolol has hpstory of tachycardia on metoprolol echo cardio noted Condition: Guarded - Instructions Diet, Activity, Other Instructions: steroid taper continue thiamine Referrals: Liang Parish [Primary Care Provider] - Frank Nava MD [Staff Physician] - (appointment on 11/02 at 2:00pm) Disposition: ASSISTED FACILITY - Home Medications Comprehensive Discharge Medication List: Ambulatory Orders Calcium Carbonate [Calcium] 500 mg PO DAILY 09/20/17 Cholecalciferol (Vitamin D3) [Dialyvite Vitamin D] 5,000 unit PO DAILY 09/20/17 Omeprazole Magnesium [Prilosec Otc] 40 mg PO DAILY 09/20/17 Metoprolol Succinate [Toprol Xl] 25 mg PO DAILY 10/24/17 Rivaroxaban [Xarelto -] 20 mg PO DAILY 10/24/17 Benzocaine Ointment [Americaine Ointment -] 1 applic WA DAILY PRN tube Cyclobenzaprine HCl [Flexeril -] 5 mg PO DAILY tablet 11/03/17 Docusate Sodium [Colace -] 100 mg PO TID capsule 11/03/17 Gabapentin [Neurontin -] 300 mg PO BID capsule 11/03/17 Hydrocortisone 2.5% Topical Cr [Anusol-Hc -] 1 applic TP BID tube 11/03/17 Polyethylene Glycol 3350 [Miralax 119 gm Btl -] 17 gm PO TID bottle 11/03/17 Pyridoxine HCl (B-6) [Vitamin B6 Injection -] 100 mg IM DAILY vial 11/03/17 Thiamine HCl [Vitamin B1 -] 100 mg PO DAILY tablet 11/03/17 Witch Bettye 50% (Tucks) [Tucks Pads -] 1 pad TP PRN PRN pad 11/03/17
[2017-11-03] MEDS: THIAMINE HCL 100 MG TABLET (FP) PO SCH (09:25)
[2017-11-03] MEDS: GABAPENTIN 300 MG CAPSULE (FP) PO SCH (09:26)
[2017-11-03] MEDS: CYCLOBENZAPRINE HCL 10 MG TABLET (FP) PO SCH (09:26)
[2017-11-03] MEDS: metoPROLOL SUCCINATE 25 MG TAB.SR.24H (FP) PO SCH (09:26)
[2017-11-03] MEDS: MULTIVITAMINS THER W-MINERALS COMBO TABLET (FP) PO SCH (09:27)
[2017-11-03] MEDS: PANTOPRAZOLE 40 MG TABLET (FP) PO SCH (09:27)
[2017-11-03] MEDS: HYDROCORTISONE 2.5% TOPICAL CREAM 30 GM TUBE TP SCH (09:27)
--- NOTE | 2017-11-03 09:49 | PN ---
Progress Note (short form) - Note Progress Note: Neurology History of Present Illness 27-year-old female, history of hypertension, status post gastric sleeve 2016, C/B PVT, on xarelto, on calcium supplements, pancreatitis, denies ETOH use , p/w a constellation of symptoms including diffuse numbness with severe weakness to bilateral lower extremity and stated she has not been able to ambulate for several days. Also complaining of lidia-oral tingling with dizziness, vague headache and possible blurry vision. She reported that since her gastric sleeve surgery, she has had intermittent diffuse weakness that has gradually worsened. No slurred speech, nausea, vomiting, fever, abdominal pain , change in bowel movements, easy bleeding or bruising, mood changes or periods of confusion. She completed MRI brain and no significant abnormalities noted. She reports leg numbness in the past was helped by gabapentin and started this for her. Is reporting improvement in sensory symptoms. Also elevated legs off bed more strongly again today, completed MRI T and L spine. Reported reviewed and L4/L5 disc ridge appreciated, disc extrution, contacting S1 root on the L. gabapentin has been helpful. NSGY consulted and did not recommend surgical intervention. Patient being considered for Jw and interested in rehab. Is providing improved strength now after some treatment. Patient eager to start therapy. She mentioned having EMG/NCS but did not see report in the chart. Showed me cell phone photo of report which shows possible peripheral neuropathy 2/2 vitamin deficiency. Did not show evidence of radiculopathy. SPoke to Jw physician yesterday and had conversation regarding her remaining motivated and desire for therapy. Discussed clinical care, apprecaite Jw acceptance of patient. Active Medications Benzocaine (Americaine Ointment -) 1 applic NE DAILY PRN PRN Reason: HEMORRHOIDS Last Admin: 11/01/17 22:21 Dose: 1 applic Cyclobenzaprine HCl (Flexeril -) 5 mg PO DAILY [facility] Last Admin: 11/03/17 09:26 Dose: Not Given Docusate Sodium (Colace -) 100 mg PO TID [facility] Last Admin: 11/03/17 05:53 Dose: 100 mg Gabapentin (Neurontin -) 300 mg PO BID [facility] Last Admin: 11/03/17 09:26 Dose: 300 mg Hydrocortisone (Anusol 2.5% Hc Cream -) 1 applic TP BID [facility] Last Admin: 11/03/17 09:27 Dose: Not Given Metoprolol Succinate (Toprol Xl -) 25 mg PO DAILY [facility] Last Admin: 11/03/17 09:26 Dose: 25 mg Multivitamins/Minerals (Theragran-M) 1 each PO DAILY [facility] Last Admin: 11/03/17 09:27 Dose: 1 each Pantoprazole Sodium (Protonix -) 40 mg PO DAILY [facility] Last Admin: 11/03/17 09:27 Dose: 40 mg Polyethylene Glycol (Miralax (For Daily Use) -) 17 gm PO TID [facility] Last Admin: 11/03/17 05:53 Dose: Not Given Pyridoxine HCl (Vitamin B6 Injection -) 100 mg IM DAILY [facility] Last Admin: 11/02/17 10:09 Dose: 100 mg Rivaroxaban (Xarelto -) 20 mg PO DAILY@1800 [facility] Last Admin: 11/02/17 17:13 Dose: 20 mg Thiamine HCl (Vitamin B1 -) 100 mg PO DAILY [facility] Last Admin: 11/03/17 09:25 Dose: 100 mg Witch Bettye/Glycerin (Tucks Pads -) 1 pad TP PRN PRN PRN Reason: hemmoroids *Physical Exam Vital Signs Period Temp Pulse Resp BP Sys/Nguyễn Pulse Ox Last 24 Hr 97.2 F-98.5 F 72-93 14-20 110-120/22-74 99-100 - Physical Exam General Appearance: Yes: Appropriately Dressed. No: Apparent Distress HEENT: positive: Normal Voice Neck: positive: Supple Respiratory/Chest: positive: Lungs Clear, Normal Breath Sounds. negative: Respiratory Distress Cardiovascular: positive: Regular Rate, S1, S2 Gastrointestinal/Abdominal: positive: Soft. negative: Tender Integumentary: positive: Dry, Warm Neurologic: varnish thinner II-XII NML intact, Fully Oriented, Alert, Normal Mood/Affect, Normal Response, Finger to Nose, lifts B/L LE off bed and more sustained 4+/5, sensory slightly diminished in lower ext. gait deferred CBCD WBC 7.6 K/mm3 (4.0-10.0) 11/01/17 06:05 RBC 4.00 M/mm3 (3.60-5.2) 11/01/17 06:05 Hgb 11.9 GM/dL (10.7-15.3) 11/01/17 06:05 Hct 36.9 % (32.4-45.2) 11/01/17 06:05 MCV 92.2 fl (80-96) 11/01/17 06:05 MCHC 32.4 g/dl (32.0-36.0) 11/01/17 06:05 RDW 16.8 % (11.6-15.6) H 11/01/17 06:05 Plt Count 241 K/MM3 (134-434) 11/01/17 06:05 MPV 9.1 fl (7.5-11.1) 11/01/17 06:05 CMP Sodium 145 mmol/L (136-145) 11/01/17 06:05 Potassium 3.6 mmol/L (3.5-5.1) 11/01/17 06:05 Chloride 111 mmol/L (98-107) H 11/01/17 06:05 Carbon Dioxide 28 mmol/L (21-32) 11/01/17 06:05 Anion Gap 6 (8-16) L 11/01/17 06:05 BUN 16 mg/dL (7-18) 11/01/17 06:05 Creatinine 0.7 mg/dL (0.55-1.02) 11/01/17 06:05 Creat Clearance w eGFR > 60 (>60) 11/01/17 06:05 Calcium 8.1 mg/dL (8.5-10.1) L 11/01/17 06:05 Total Bilirubin 0.7 mg/dL (0.2-1.0) D 11/01/17 06:05 AST 41 U/L (15-37) H 11/01/17 06:05 ALT 124 U/L (12-78) H 11/01/17 06:05 Alkaline Phosphatase 57 U/L (45-117) 11/01/17 06:05 Total Protein 6.1 g/dl (6.4-8.2) L 11/01/17 06:05 Albumin 3.4 g/dl (3.4-5.0) 11/01/17 06:05 MRI brain reviewed MRI T and L spine reviewed Plan 27-year-old female, history of hypertension, status post gastric sleeve 2016, C/B PVT, on xarelto, on calcium supplements, pancreatitis, denies ETOH use , p/w a constellation of symptoms including diffuse numbness with severe weakness to bilateral lower extremity and states she has not been able to ambulate for several days. Also complaining of lidia-oral tingling with dizziness, vague headache and possible blurry vision. She reports that since her gastric sleeve surgery, she has had intermittent diffuse weakness that has gradually worsened. No slurred speech, nausea, vomiting, fever, abdominal pain , change in bowel movements, easy bleeding or bruising, mood changes or periods of confusion. She completed MRI brain and no significant abnormalities noted. MRI T and L spine reviewed EMG report reviewed, consistent with neuropathy No evidence of LS radiculopathy Gabapentin helping, continue current dose Physcial therapy On thiamine as well NSGY input appreciated rehab placement, spoke to jw yesterday in detail Appreciate continued therapy No further rec'd at this time
[2017-11-03 11:33] VITALS: BP 125/74; PULSE 78
[2017-11-03] MEDS: PYRIDOXINE HCL 100 MG/1 ML VIAL IM SCH (12:09)
== END 2017-11-03 13:46 | DRG 282 ==
LOC: JER 11:58 → JERBED 14:11 → J5S 17:59 → J4W 10-31 19:14
PROVIDERS: ADMIT Family Medicine; ATTEND Family Medicine
DX: K85.80 Other acute pancreatitis without necrosis or infection (principal); I10 Essential (primary) hypertension; R29.898 Other symptoms and signs involving the musculoskeletal system; R26.2 Difficulty in walking, not elsewhere classified; M54.16 Radiculopathy, lumbar region; E66.8 Other obesity; Z68.30 Body mass index [BMI] 30.0-30.9, adult; M54.89 Other dorsalgia; M79.606 Pain in leg, unspecified; M51.26 Other intervertebral disc displacement, lumbar region; Q45.3 Other congenital malformations of pancreas and pancreatic duct; K59.09 Other constipation; R79.89 Other specified abnormal findings of blood chemistry; R00.0 Tachycardia, unspecified; R20.2 Paresthesia of skin; G62.9 Polyneuropathy, unspecified; Z98.84 Bariatric surgery status
CPT/HCPCS: 36415; 70450-TC; 70551-TC; 72146-TC; 72148-TC; 76700-TC; 80048; 80053; 80061; 80074; 80307; 81003; 81015; 82150; 82550; 82607; 82746; 83036; 83605; 83690; 83721; 83735; 84207; 84252; 84255; 84425; 84439; 84443; 84446; 84481; 84484; 84590; 84630; 84703; 85025; 85027; 85610; 85651; 86593; 86850; 86900; 86901; 87389; 93005; 93010; 93306-TC; 95860-TC; 97116-GP; 97162-GP; 99283-25

== ENCOUNTER 2019-01-06 10:38 | Emergency (ER) | payer OTHER ==
[2019-01-06 10:44] VITALS: PULSE 108; BMI 30.5
[2019-01-06] MEDS ORDERED: diazePAM 5 MG TABLET PO ONE (11:21)
[2019-01-06] MEDS ORDERED: KETOROLAC TROMETHAMINE 60 MG/2 ML VIAL IM ONE (11:21)
[2019-01-06] MEDS ORDERED: KETOROLAC TROMETHAMINE 60 MG/2 ML VIAL ONE (11:31)
[2019-01-06] MEDS ORDERED: diazePAM 5 MG TABLET ONE (11:32)
[2019-01-06] MEDS ORDERED: LIDOCAINE 5% TOPICAL PATCH TP ONE (12:42)
--- NOTE | 2019-01-06 12:45 | PDOC ---
History of Present Illness - General Chief Complaint: Pain, Acute Stated Complaint: PAIN Time Seen by Provider: 01/06/19 11:00 History Source: Patient Exam Limitations: No Limitations Past History - Past Medical History Allergies/Adverse Reactions: Allergies Allergy/AdvReac Type Severity Reaction Status Date / Time No Known Allergies Allergy Verified 10/24/17 12:04 Home Medications: Ambulatory Orders Metoprolol Succinate [Toprol Xl] 25 mg PO DAILY 10/24/17 Cyclobenzaprine HCl [Flexeril -] 10 mg PO DAILY 01/06/19 Diazepam [Valium] 5 mg PO Q8H PRN #12 tablet MDD 3 01/06/19 Gabapentin [Neurontin -] 400 mg PO BID 01/06/19 Lidocaine 5% Patch [Lidoderm -] 1 patch TP DAILY #30 patch 01/06/19 Methylprednisolone [Medrol Dose Saqib] 4 mg PO ASDIR #21 tablet 01/06/19 Anemia: No Asthma: No Cancer: No Cardiac Disorders: Yes (SVT) CVA: No COPD: No CHF: No Dementia: No Diabetes: No GI Disorders: No Disorders: No HTN: Yes Hypercholesterolemia: No Liver Disease: No Seizures: No Thyroid Disease: No - Surgical History GI Surgery: Yes (gastric sleeve) - Immunization History Immunization Up to Date: No - Suicide/Smoking/Psychosocial Hx Smoking History: Never smoked Have you smoked in the past 12 months: No If you are a former smoker, when did you quit?: 2016 Information on smoking cessation initiated: No Hx Alcohol Use: No Drug/Substance Use Hx: No Substance Use Type: None Hx Substance Use Treatment: No *Physical Exam - Vital Signs Last Vital Signs Temp Pulse Resp BP Pulse Ox 98.2 F 108 H 18 143/88 100 01/06/19 10:40 01/06/19 10:40 01/06/19 10:40 01/06/19 10:40 01/06/19 10:40 - Physical Exam General Appearance: No: Apparent Distress Neck: positive: Decreased range of motion (pain with movement of neck, particularly on looking to right; +shortening of L SCM; mild TTP along L traps) . negative: Rigid, Tender midline Respiratory/Chest: positive: Lungs Clear, Normal Breath Sounds. negative: Respiratory Distress Cardiovascular: positive: Regular Rhythm, Regular Rate, S1, S2. negative: Murmur Musculoskeletal: negative: Vertebral Tenderness Extremity: positive: Normal Capillary Refill, Other (slight pain with abduction of L shoulder). negative: Coldness, Cyanosis, Swelling, Calf Tenderness Integumentary: positive: Normal Color. negative: Swelling, Ecchymosis Neurologic: positive: Fully Oriented, Alert, Normal Mood/Affect, Other (4/5 strength L elbow flexion, 4/5 L elbow extension, 5/5 L finger flexion, sensation intact to BUE) ED Treatment Course - Medications Given in the ED: ED Medications Discontinued Medications Generic Name Dose Route Start Last Admin Trade Name Freq PRN Reason Stop Dose Admin Diazepam 5 mg 01/06/19 11:21 01/06/19 11:47 Valium - PO 01/06/19 11:22 5 mg ONCE ONE Administration Ketorolac Tromethamine 60 mg 01/06/19 11:21 01/06/19 11:45 Toradol Injection - IM 01/06/19 11:22 60 mg ONCE ONE Administration Medical Decision Making - Medical Decision Making 28 y/o F hx of HTN, gastric bypass 07/2017, pancreatitis, portal vein thrombosis (used to be on Xarelto, but is no longer taking it), herniated disc, neuropathy presents with R sided neck pain radiating down arm x 1.5 weeks with tingling at tips of all her fingers. Has been using Flexeril which she has at home without relief of pain. Denies trauma or heavy lifting. Denies fever, sob, cp, abd pain, n/v, headache, bowel/bladder incontinence PE with torticollosis with also concern for cervical radiculopathy (possibly C5? ) Wanted to send for MRI - called MRI and stated can take patient around 5-6 PM However, patient states she is unable to stay for that long in the ED; has a PCP and will f/u with him Given Toradol, Valium and lidocaine patch with some improvement in pain Will also send on Medrol dosepak 01/06/19 12:47 *DC/Admit/Observation/Transfer Diagnosis at time of Disposition: Neck pain - Discharge Dispostion Disposition: HOME Condition at time of disposition: Stable Decision to Admit order: No - Prescriptions Prescriptions: Diazepam [Valium] 5 mg PO Q8H PRN #12 tablet MDD 3 PRN Reason: Muscle Spasms Lidocaine 5% Patch [Lidoderm -] 1 patch TP DAILY #30 patch Methylprednisolone [Medrol Dose Saqib] 4 mg PO ASDIR #21 tablet - Referrals Referrals: Liang Parish [Primary Care Provider] - 2 Days Renato Luciano DO [Staff Physician] - 2 Days Romulo Nogueira MD [Staff Physician] - 2 Days - Patient Instructions Printed Discharge Instructions: DI for Torticollis, DI for Cervical Radiculopathy Additional Instructions: Thank you for choosing [facility]. It was a pleasure taking care of you. There may be concern for pinched nerve along your cervical spine. You may take Motrin 600 mg every 6 hours by mouth as needed for mild to moderate pain. Take Motrin with food. You were also prescribed Valium to take as needed for muscle spasms. This medication can also make you drowsy so please be cautious with driving or performing heavy physical work. Apply lidocaine patch as indicated Take Medrol dosepak as indicated You were referred to neurology and neurosurgery - please call to make appointment Recommend getting MRI of cervical spine to further assess cause of symptoms Return to the Emergency Department if your symptoms worsen or persist or have other concerning symptoms. - Post Discharge Activity
[2019-01-06] MEDS ORDERED: LIDOCAINE 5% TOPICAL PATCH ONE (13:04)
[2019-01-06 13:26] VITALS: BP 112/74; TEMP 97.8
== END 2019-01-06 13:29 | disposition home or self-care (01) ==
LOC: JER 10:38
PROC: 3E0233Z Introduction of Anti-inflammatory into Muscle, Percutaneous Approach (ICD-10-PCS; principal; 2019-01-06)
DX: M54.2 Cervicalgia (principal); M79.601 Pain in right arm; I10 Essential (primary) hypertension; I81 Portal vein thrombosis; Z87.19 Personal history of other diseases of the digestive system; Z98.84 Bariatric surgery status
CPT/HCPCS: 99282-25

== ENCOUNTER 2020-05-03 01:36 | Emergency (ER) | payer OTHER ==
[2020-05-03 01:56] VITALS: BP 122/64; PULSE 71; TEMP 98.4; BMI 31.3
--- NOTE | 2020-05-03 02:14 | PDOC ---
Attending Attestation - Resident Resident Name: Celia Nichole - ED Attending Attestation I have performed the following: I have examined & evaluated the patient, The case was reviewed & discussed with the resident, I agree w/resident's findings & plan - HPI HPI: 05/03/20 19:38 29 year old woman with no pmhx who presents with ankle injury, she was walking when her foot got caught in the pavement and she fell. Denies hitting head or loc or any other injuries. - Physicial Exam PE: 05/03/20 19:38 Agree with resident exam Pt is able to ambulate on her injured extremity. Pt has no base of 5th metatarsal tenderness; she has mild malleolar tenderness; minimal swelling -unlikely to be broken, but imaging will be obtained - Medical Decision Making 05/03/20 19:39 XRays normal Pt gven pain meds; kyung wrap; RICE precautions follow with PMD/ortho as needed Discharge - Discharge Information Problems reviewed: Yes Clinical Impression/Diagnosis: Ankle pain Condition: Stable Disposition: HOME - Follow up/Referral Referrals: Liang Parish [Primary Care Provider] - Suleiman Cutler DO [Staff Physician] - - Patient Discharge Instructions Patient Printed Discharge Instructions: DI for Ankle Pain Additional Instructions: You were seen in the ED for complaints of L ankle pain. In the ED you were evaluated with xrays that did not show acute fracture There does not appear to be an acute need for immediate hospitalization. You are advised to follow up with your Primary Care Physician within 1 week. You were given a referral to Orthopedics and should follow up within 1 week. Take tylenol, motrin, rest, elevated and ice your ankle Return to the ED immediately if you experience worsening ankle pain, swelling, change in skin color or any other concerning symptoms. - Post Discharge Activity
[2020-05-03] MEDS ORDERED: ACETAMINOPHEN 500 MG TABLET (FP) PO ONE (02:15)
--- NOTE | 2020-05-03 02:15 | PDOC ---
History of Present Illness - General Chief Complaint: Injury Stated Complaint: ANKLE INJURY Time Seen by Provider: 05/03/20 02:08 - History of Present Illness Initial Comments: 05/03/20 03:27 29 year old woman with no pmhx who presents with ankle injury, she was walking when her foot got caught in the pavement and she fell. Denies hitting head or loc or any other injuries. ROS GENERAL/CONSTITUTIONAL: No fever or chills. No weakness. HEAD, EYES, EARS, NOSE AND THROAT: No change in vision. No ear pain or discharge. No sore throat. CARDIOVASCULAR: No chest pain or shortness of breath RESPIRATORY: No cough, wheezing, or hemoptysis. GASTROINTESTINAL: No nausea, vomiting, diarrhea or constipation. GENITOURINARY: No dysuria, frequency, or change in urination. MUSCULOSKELETAL: + joint or muscle swelling or pain. No neck or back pain. SKIN: No rash NEUROLOGIC: No headache, vertigo, loss of consciousness, or change in strength/sensation. ENDOCRINE: No increased thirst. No abnormal weight change HEMATOLOGIC/LYMPHATIC: No anemia, easy bleeding, or history of blood clots. ALLERGIC/IMMUNOLOGIC: No hives or skin allergy. PE GENERAL: Awake, alert, and fully oriented, in no acute distress HEAD: No signs of trauma, normocephalic, atraumatic EYES:EOMI, sclera anicteric, conjunctiva clear ENT: oropharynx clear without exudates. Moist mucosa NECK: Normal ROM, supple LUNGS: No distress, speaks full sentences, clear to auscultation bilaterally HEART: Regular rate and rhythm, normal S1 and S2, no murmurs, rubs or gallops, peripheral pulses normal and equal bilaterally. ABDOMEN: Soft, nontender. No guarding, no rebound. No masses EXTREMITIES : Normal inspection, Normal range of motion, no edema. No clubbing or cyanosis. palpanle pulses, + mild decreases sensation at the ankle, normal sensation above the ankle and below, ROM limited 2/2 to pain, patient has normal movement of the toes and can dorsoflex but limited 2/2 pain NEUROLOGICAL: Cranial nerves II through XII grossly intact. Normal speech, no focal sensorimotor deficits SKIN: Warm, Dry, normal turgor, no rashes or lesions noted Assessment and Plan 29 year old woman with no pmhx who presents with ankle injury, she was walking when her foot got caught in the pavement and she fell. Consider fx vs dislocation vs sprain - XR without abnml pain control ld d/c with ortho and strict return precautions. Celia Nichole, PGY3 Emergency Medicine Past History - Medical History Allergies/Adverse Reactions: Allergies Allergy/AdvReac Type Severity Reaction Status Date / Time No Known Allergies Allergy Verified 05/03/20 01:54 Home Medications: Ambulatory Orders Metoprolol Succinate [Toprol Xl] 25 mg PO DAILY 10/24/17 Cyclobenzaprine HCl [Flexeril -] 10 mg PO DAILY 01/06/19 Diazepam [Valium] 5 mg PO Q8H PRN #12 tablet MDD 3 01/06/19 Gabapentin [Neurontin -] 400 mg PO BID 01/06/19 Lidocaine 5% Patch [Lidoderm -] 1 patch TP DAILY #30 patch 01/06/19 Methylprednisolone [Medrol Dose Saqib] 4 mg PO ASDIR #21 tablet 01/06/19 Acetaminophen [Tylenol -] 2 tab PO Q6H #100 tablet 12/20/19 Ibuprofen 800 mg PO TID #30 tablet 12/20/19 Anemia: No Asthma: No Cancer: No Cardiac Disorders: Yes (SVT) CVA: No COPD: No CHF: No Dementia: No Diabetes: No GI Disorders: No Disorders: No HTN: Yes Hypercholesterolemia: No Liver Disease: No Seizures: No Thyroid Disease: No - Surgical History GI Surgery: Yes (gastric sleeve) - Reproductive History Is Patient Now?: No - Immunization History Immunization Up to Date: No - Psycho-Social/Smoking History Smoking History: Never smoked Have you smoked in the past 12 months: No If you are a former smoker, when did you quit?: 2016 Information on smoking cessation initiated: No - Substance Abuse Hx (Audit-C & DAST Scrn) How often the patient has a drink containing alcohol: Never Score: In Men: 4 or > Positive; In Women: 3 or > Positive: 0 Screen Result (Pos requires Nsg. Audit-10AR): Negative In the last yr the pt used illegal drug/Rx for NonMed reason: No Score: Yes response is considered Positive: 0 Screen Result (Positive result requires Nsg. DAST-10): Negative *Physical Exam - Vital Signs Last Vital Signs Temp Pulse Resp BP Pulse Ox 98.4 F 71 20 122/64 97 05/03/20 01:54 05/03/20 01:54 05/03/20 01:54 05/03/20 01:54 05/03/20 01:54 Discharge - Discharge Information Problems reviewed: Yes Clinical Impression/Diagnosis: Ankle pain Condition: Stable Disposition: HOME - Follow up/Referral Referrals: Liang Parish [Primary Care Provider] - Suleiman Cutler DO [Staff Physician] - - Patient Discharge Instructions Patient Printed Discharge Instructions: DI for Ankle Pain Additional Instructions: You were seen in the ED for complaints of L ankle pain. In the ED you were evaluated with xrays that did not show acute fracture There does not appear to be an acute need for immediate hospitalization. You are advised to follow up with your Primary Care Physician within 1 week. You were given a referral to Orthopedics and should follow up within 1 week. Take tylenol, motrin, rest, elevated and ice your ankle Return to the ED immediately if you experience worsening ankle pain, swelling, change in skin color or any other concerning symptoms. - Post Discharge Activity
[2020-05-03] MEDS ORDERED: ACETAMINOPHEN 325 MG TABLET (FP) ONE (02:31)
== END 2020-05-03 03:29 | disposition home or self-care (01) ==
LOC: JER 01:36
DX: M25.572 Pain in left ankle and joints of left foot (principal)
CPT/HCPCS: 73590-TC-LT-FY; 73610-TC-LT-FY; 73630-TC-LT; 99284-25

== ENCOUNTER 2020-11-10 19:15 | Emergency (ER) | payer OTHER ==
[2020-11-10 20:10] VITALS: BP 131/78; PULSE 74; TEMP 98.3; BMI 31.9
[2020-11-10] MEDS ORDERED: IBUPROFEN 600 MG TABLET (FP) PO ONE ×2 (21:08→21:15)
== END 2020-11-10 21:27 | disposition home or self-care (01) ==
LOC: JER 19:15
DX: S92.414A Nondisplaced fracture of proximal phalanx of right great toe, initial encounter for closed fracture (principal)
CPT/HCPCS: 73610-TC-RT-FY; 73630-TC-RT-FY; 99283-25

== ENCOUNTER 2021-01-16 16:51 | Emergency (ER) | payer OTHER ==
[2021-01-16 17:00] VITALS: BP 141/99; PULSE 89; TEMP 98.3; BMI 31.3
[2021-01-16] MEDS ORDERED: KETOROLAC TROMETHAMINE 60 MG/2 ML VIAL IM ONE (17:33)
[2021-01-16] MEDS ORDERED: KETOROLAC TROMETHAMINE 60 MG/2 ML VIAL ONE (17:36)
== END 2021-01-16 18:10 | disposition home or self-care (01) ==
LOC: JER 16:51 → JERFT 16:51
PROC: 3E0233Z Introduction of Anti-inflammatory into Muscle, Percutaneous Approach (ICD-10-PCS; principal; 2021-01-16)
DX: M54.2 Cervicalgia (principal); M25.511 Pain in right shoulder
CPT/HCPCS: 72050-TC-FY; 73030-TC-RT-FY; 99284-25

== ENCOUNTER 2021-12-24 23:11 | Emergency (ER) | payer OTHER ==
[2021-12-24 23:19] VITALS: BP 133/86; PULSE 83; TEMP 98.9; BMI 32.7
[2021-12-24] MEDS ORDERED: ASPIRIN 81 MG CHEWABLE TABLETS PO ONE (23:33)
[2021-12-24] MEDS ORDERED: ASPIRIN 81 MG CHEWABLE TABLETS ONE (23:40)
[2021-12-24 23:51] LABS: BASO % 0.5 % (0-2.0); EOS % 1.6 % (0-4.5); HEMATOCRIT 40.2 % (32.4-45.2); HEMOGLOBIN 13.4 GM/dL (10.7-15.3); LYMPH % 43.8 % (8-40); MCH 29.7 pg (25.7-33.7); MCHC 33.3 g/dl (32.0-36.0); MEAN CELL VOLUME 89.5 fl (80-96); MEAN PLT VOLUME 8.2 fl (7.5-11.1); MONO % 4.4 % (3.8-10.2); NEUT % 49.7 % (42.8-82.8); PLATELET COUNT 255 10^3/uL (134-434); RBC 4.49 M/mm3 (3.60-5.2); RDW 13.1 % (11.6-15.6); WHITE BLOOD COUNT 7.1 K/mm3 (4.0-10.0)
[2021-12-24 23:57] LABS: INR 1.15 (0.83-1.09); PROTHROMBIN TIME (PATIENT) 13.3 SEC (9.7-13.0)
[2021-12-25] LABS: ACTIVATED PTT 28.2 SECONDS (25.2-36.5)
[2021-12-25 00:12] LABS: CALCIUM 8.7 mg/dL (8.5-10.1)
[2021-12-25 00:13] LABS: BLOOD UREA NITROGEN 14.9 mg/dL (7-18)
[2021-12-25 00:16] LABS: CREATININE 0.8 mg/dL (0.55-1.3)
[2021-12-25 00:17] LABS: BILIRUBIN,TOTAL 0.4 mg/dL (0.2-1); TOT PROT 7.5 g/dl (6.4-8.2)
== END 2021-12-25 01:42 | disposition home or self-care (01) ==
LOC: JER 23:11
DX: R07.9 Chest pain, unspecified (principal)
CPT/HCPCS: 36415; 71046-TC-FY; 80053; 84484; 84703; 85025; 85379; 85610; 85730; 93005; 93010; 99285-25

== ENCOUNTER 2022-06-19 21:37 | Emergency (ER) | payer OTHER ==
[2022-06-19 21:41] VITALS: BP 147/89; PULSE 76; RESP 19; TEMP 97.9; BMI 31.3
[2022-06-19] MEDS ORDERED: ACETAMINOPHEN 325 MG TABLET (FP) PO ONE (22:08)
[2022-06-19] MEDS ORDERED: KETOROLAC TROMETHAMINE 30 MG/1 ML VIAL IM ONE (22:08)
[2022-06-19] MEDS ORDERED: LIDOCAINE 5% TOPICAL PATCH TP ONE (22:08)
[2022-06-19] MEDS ORDERED: METHOCARBAMOL 500 MG TABLET PO ONE (22:09)
[2022-06-19] MEDS ORDERED: LIDOCAINE 5% TOPICAL PATCH ONE (22:17)
[2022-06-19] MEDS ORDERED: ACETAMINOPHEN 325 MG TABLET (FP) ONE (22:17)
[2022-06-19] MEDS ORDERED: KETOROLAC TROMETHAMINE 30 MG/1 ML VIAL ONE (22:18)
[2022-06-19] MEDS ORDERED: METHOCARBAMOL 500 MG TABLET ONE (22:18)
[2022-06-20] MEDS ORDERED: LIDOCAINE PATCH REMOVAL MC SCH (10:00)
== END 2022-06-19 23:44 | disposition home or self-care (01) ==
LOC: JER 21:37
PROC: 3E0233Z Introduction of Anti-inflammatory into Muscle, Percutaneous Approach (ICD-10-PCS; principal; 2022-06-19)
DX: M62.838 Other muscle spasm (principal)
CPT/HCPCS: 99284-25

== ENCOUNTER 2022-11-27 22:37 | Emergency (ER) | payer OTHER ==
[2022-11-27 22:49] VITALS: BMI 69.0
[2022-11-27] MEDS ORDERED: FAMOTIDINE 20 MG/50 ML IVPB 20 MG/50 ML MG IVPB ONE ×2 (23:24→23:34)
[2022-11-27] MEDS ORDERED: MAG HYDROX/AL HYDROX/SIMETH 30 ML UNIT-DOSE CUP PO ONE (23:24)
[2022-11-27] MEDS ORDERED: ACETAMINOPHEN 1000 MG/100 ML BAG IVPB ONE (23:24)
[2022-11-27] MEDS ORDERED: SODIUM CHLORIDE 0.9% 500 ML INFUS.BAG IV ONE (23:24)
[2022-11-27] MEDS ORDERED: ACETAMINOPHEN INJECTION 100 ML IVPB ONE (23:33)
[2022-11-27] MEDS ORDERED: MAG HYDROX/AL HYDROX/SIMETH 30 ML UNIT-DOSE CUP ONE (23:34)
[2022-11-27 23:45] LABS: BASO % 0.7 % (0-2.0); EOS % 2.2 % (0-4.5); HEMATOCRIT 35.7 % (32.4-45.2); LYMPH % 39.2 % (8-40); MCH 29.7 pg (25.7-33.7); MCHC 33.6 g/dl (32.0-36.0); MEAN CELL VOLUME 88.6 fl (80-96); MEAN PLT VOLUME 8.4 fl (7.5-11.1); NEUT % 49.9 % (42.8-82.8); PLATELET COUNT 193 10^3/uL (134-434); RBC 4.03 M/mm3 (3.60-5.2); RDW 13.2 % (11.6-15.6); WHITE BLOOD COUNT 7.8 K/mm3 (4.0-10.0)
[2022-11-27 23:57] LABS: INR 1.22 (0.83-1.09); PROTHROMBIN TIME (PATIENT) 14.1 SEC (9.7-13.0)
[2022-11-27 23:59] LABS: ACTIVATED PTT 29.4 SECONDS (25.2-36.5)
[2022-11-28 00:02] LABS: HCG,QUALITATIVE URINE Negative
[2022-11-28 00:05] LABS: EPI CELLS 34 /uL (0-25.1); HYALINE CASTS 0 /uL (0-3.1); PH,URINE 6.5 (5.0-8.0); URINE APPEARANCE CLEAR; URINE BACTERIA 687 /uL (0-1359); URINE BILIRUBIN NEGATIVE (NEGATIVE); URINE COLOR YELLOW; URINE GLUCOSE (UA) NEGATIVE (NEGATIVE); URINE KETONE TRACE (NEGATIVE); URINE LEUK ESTERASE 2+ (NEGATIVE); URINE NITRITE NEGATIVE (NEGATIVE); URINE PROTEIN NEGATIVE (NEGATIVE); URINE RBC 32 /uL (0-23.9); URINE WBC 99 /uL (0-25.8)
[2022-11-28 00:08] LABS: CALCIUM 8.5 mg/dL (8.5-10.1)
[2022-11-28 00:09] LABS: ALBUMIN 3.6 g/dl (3.4-5.0); BLOOD UREA NITROGEN 11.6 mg/dL (7-18); MAGNESIUM 1.8 mg/dL (1.8-2.4)
[2022-11-28 00:12] LABS: CREATININE 0.9 mg/dL (0.55-1.3)
[2022-11-28 00:13] LABS: TOT PROT 6.6 g/dl (6.4-8.2)
[2022-11-28 00:14] LABS: BILIRUBIN,TOTAL 0.4 mg/dL (0.2-1)
[2022-11-28 03:22] VITALS: BP 104/60; PULSE 88; RESP 18; TEMP 98.6
== END 2022-11-28 04:08 | disposition admitted as inpatient to this hospital (09) ==
LOC: JER 22:37
PROC: 3E033GC Introduction of Other Therapeutic Substance into Peripheral Vein, Percutaneous Approach (ICD-10-PCS; principal; 2022-11-27)
PROC: 3E033NZ Introduction of Analgesics, Hypnotics, Sedatives into Peripheral Vein, Percutaneous Approach (ICD-10-PCS; 2022-11-27)
DX: R07.9 Chest pain, unspecified (principal); R10.11 Right upper quadrant pain; Z98.84 Bariatric surgery status; Z20.822 Contact with and (suspected) exposure to COVID-19
CPT/HCPCS: 0241U-QW; 36415; 71045-TC-FY; 76705-TC; 80053; 81003; 83690; 83735; 84484; 84703; 85025; 85379; 85610; 85730; 86850; 86900; 86901; 87086; 93005; 93010; 99285-25

== ENCOUNTER 2023-03-18 05:03 | Emergency (ER) | payer OTHER ==
[2023-03-18 05:11] VITALS: BP 139/93; PULSE 66; RESP 18; TEMP 97.7; BMI 31.3
[2023-03-18] MEDS ORDERED: MAG HYDROX/AL HYDROX/SIMETH 30 ML UNIT-DOSE CUP PO ONE (05:32)
[2023-03-18] MEDS ORDERED: ACETAMINOPHEN 500 MG TABLET (FP) PO ONE (05:32)
[2023-03-18] MEDS ORDERED: FAMOTIDINE 20 MG TABLET PO ONE (05:32)
[2023-03-18] MEDS ORDERED: ONDANSETRON 4 MG/2 ML VIAL IVPB ONE (05:32)
[2023-03-18] MEDS ORDERED: LACTATED RINGERS SOLUTION 1000 ML INFUS.BAG IV ONE (05:40)
[2023-03-18] MEDS ORDERED: ONDANSETRON 4 MG/2 ML VIAL ONE (05:53)
[2023-03-18] MEDS ORDERED: FAMOTIDINE 20 MG TABLET ONE (05:53)
[2023-03-18] MEDS ORDERED: MAG HYDROX/AL HYDROX/SIMETH 30 ML UNIT-DOSE CUP ONE (05:53)
[2023-03-18] MEDS ORDERED: ACETAMINOPHEN 500 MG TABLET (FP) ONE (05:56)
[2023-03-18 06:44] LABS: HEMATOCRIT 40.3 % (32.4-45.2); MCHC 32.3 g/dl (32.0-36.0); MEAN CELL VOLUME 89.8 fl (80-96); MEAN PLT VOLUME 8.8 fl (7.5-11.1); PLATELET COUNT 218 10^3/uL (134-434); RBC 4.49 M/mm3 (3.60-5.2); RDW 13.5 % (11.6-15.6); WHITE BLOOD COUNT 7.2 K/mm3 (4.0-10.0)
[2023-03-18 06:52] LABS: CALCIUM 9.1 mg/dL (8.5-10.1)
[2023-03-18 06:53] LABS: ALBUMIN 3.7 g/dl (3.4-5.0); BLOOD UREA NITROGEN 16.7 mg/dL (7-18); POTASSIUM 4.1 mmol/L (3.5-5.1)
[2023-03-18 06:56] LABS: CREATININE 0.8 mg/dL (0.55-1.3)
[2023-03-18 06:58] LABS: BILIRUBIN,TOTAL 0.5 mg/dL (0.2-1); TOT PROT 6.9 g/dl (6.4-8.2)
== END 2023-03-18 07:56 | disposition home or self-care (01) ==
LOC: JER 05:03
PROC: 3E033NZ Introduction of Analgesics, Hypnotics, Sedatives into Peripheral Vein, Percutaneous Approach (ICD-10-PCS; principal; 2023-03-18)
DX: R07.2 Precordial pain (principal); R11.0 Nausea; R19.7 Diarrhea, unspecified
CPT/HCPCS: 36415; 71046-TC-FY; 80053; 84484; 84703; 85027; 93005; 93010; 99285-25

== ENCOUNTER 2023-06-19 19:01 | Emergency (ER) | payer OTHER ==
[2023-06-19 19:05] VITALS: BP 121/81; PULSE 88; RESP 18; TEMP 9.6; BMI 29.7
== END 2023-06-19 22:22 | disposition left against medical advice (07) ==
LOC: JERFT 19:01
DX: M54.50 Low back pain, unspecified (principal); X50.1XXA Overexertion from prolonged static or awkward postures, initial encounter
CPT/HCPCS: 99281-25

== ENCOUNTER 2023-07-28 23:14 | Emergency (ER) | payer OTHER ==
[2023-07-28 23:20] VITALS: RESP 18; TEMP 98; BMI 29.7
[2023-07-29] MEDS ORDERED: LIDOCAINE 5% TOPICAL PATCH TP ONE (00:20)
[2023-07-29] MEDS ORDERED: LIDOCAINE 4% PATCH TP ONE (00:27)
[2023-07-29 01:22] LABS: BASO % 0.6 % (0-2.0); EOS % 3.2 % (0-4.5); HEMATOCRIT 39.7 % (32.4-45.2); HEMOGLOBIN 12.8 GM/dL (10.7-15.3); LYMPH % 47.5 % (8-40); MCH 29.2 pg (25.7-33.7); MCHC 32.2 g/dl (32.0-36.0); MEAN CELL VOLUME 90.8 fl (80-96); MEAN PLT VOLUME 8.7 fl (7.5-11.1); MONO % 5.4 % (3.8-10.2); NEUT % 43.3 % (42.8-82.8); PLATELET COUNT 225 10^3/uL (134-434); RBC 4.37 M/mm3 (3.60-5.2); RDW 14.1 % (11.6-15.6); WHITE BLOOD COUNT 7.1 K/mm3 (4.0-10.0)
[2023-07-29] MEDS ORDERED: IBUPROFEN 600 MG TABLET (FP) PO ONE (01:27)
[2023-07-29 01:28] LABS: CALCIUM 8.4 mg/dL (8.5-10.1)
[2023-07-29 01:29] LABS: ALBUMIN 3.8 g/dl (3.4-5.0); BLOOD UREA NITROGEN 13.7 mg/dL (7-18)
[2023-07-29 01:32] LABS: CREATININE 0.8 mg/dL (0.55-1.3)
[2023-07-29 01:34] LABS: BILIRUBIN,TOTAL 0.3 mg/dL (0.2-1)
[2023-07-29] MEDS ORDERED: KETOROLAC TROMETHAMINE 15 MG/ML VIAL IVPUSH ONE (01:37)
[2023-07-29] MEDS ORDERED: KETOROLAC TROMETHAMINE 15 MG/ML VIAL ONE (01:38)
[2023-07-29 02:02] VITALS: BP 122/78; PULSE 66
[2023-07-29] MEDS ORDERED: LIDOCAINE PATCH REMOVAL MC SCH (22:00)
== END 2023-07-29 02:04 | disposition home or self-care (01) ==
LOC: JER 23:14
PROC: 3E0333Z Introduction of Anti-inflammatory into Peripheral Vein, Percutaneous Approach (ICD-10-PCS; principal; 2023-07-29)
DX: M25.512 Pain in left shoulder (principal); M54.2 Cervicalgia
CPT/HCPCS: 36415; 71046-TC-FY; 73030-TC-LT-FY; 80053; 84484; 84703; 85025; 93005; 93010; 99285-25

== ENCOUNTER 2023-12-25 11:12 | Emergency (ER) | payer SELFPAY ==
[2023-12-25 11:18] VITALS: BP 104/66; PULSE 91; RESP 18; TEMP 97.8; BMI 29.7
[2023-12-25] MEDS ORDERED: KETOROLAC TROMETHAMINE 30 MG/1 ML VIAL ONE (12:11)
[2023-12-25] MEDS ORDERED: ACETAMINOPHEN 500 MG TABLET (FP) ONE (12:12)
[2023-12-25] MEDS: ACETAMINOPHEN 500 MG TABLET (FP) PO ONE (12:29)
[2023-12-25] MEDS: KETOROLAC TROMETHAMINE 30 MG/1 ML VIAL IM ONE (12:29)
== END 2023-12-25 13:09 | disposition home or self-care (01) ==
LOC: JER 11:12
PROC: 3E0233Z Introduction of Anti-inflammatory into Muscle, Percutaneous Approach (ICD-10-PCS; principal; 2023-12-25)
DX: S06.0X0A Concussion without loss of consciousness, initial encounter (principal); R42 Dizziness and giddiness; M54.2 Cervicalgia; W22.8XXA Striking against or struck by other objects, initial encounter; Y93.61 Activity, american tackle football
CPT/HCPCS: 84703; 99284-25

== ENCOUNTER 2024-02-12 14:08 | Emergency (ER) | payer OTHER ==
[2024-02-12 14:23] VITALS: BP 110/68; PULSE 69; RESP 18; TEMP 98.4; BMI 29.7
[2024-02-12] MEDS ORDERED: KETOROLAC TROMETHAMINE 30 MG/1 ML VIAL ONE (15:17)
[2024-02-12] MEDS ORDERED: ACETAMINOPHEN 500 MG TABLET (FP) ONE (15:18)
[2024-02-12] MEDS: KETOROLAC TROMETHAMINE 30 MG/1 ML VIAL IM ONE (15:28)
[2024-02-12] MEDS: ACETAMINOPHEN 500 MG TABLET (FP) PO ONE (15:29)
== END 2024-02-12 16:22 | disposition home or self-care (01) ==
LOC: JERFT 14:08
PROC: 3E0133Z Introduction of Anti-inflammatory into Subcutaneous Tissue, Percutaneous Approach (ICD-10-PCS; principal; 2024-02-12)
DX: S59.902A Unspecified injury of left elbow, initial encounter (principal); W19.XXXA Unspecified fall, initial encounter; Y93.61 Activity, american tackle football
CPT/HCPCS: 73070-TC-LT-FY; 73090-TC-LT-FY; 99284-25

== ENCOUNTER 2024-05-08 12:33 | Emergency (ER) | payer SELFPAY ==
[2024-05-08 12:39] VITALS: RESP 18; BMI 31.3
[2024-05-08] MEDS ORDERED: ACETAMINOPHEN INJECTION 100 ML ONE (13:51)
[2024-05-08] MEDS ORDERED: ONDANSETRON 4 MG/2 ML VIAL ONE (13:51)
[2024-05-08 13:52] LABS: BASO % 0.6 % (0-2.0); HEMATOCRIT 36.5 % (32.4-45.2); HEMOGLOBIN 11.9 GM/dL (10.7-15.3); LYMPH % 41.5 % (8-40); MCH 28.7 pg (25.7-33.7); MCHC 32.7 g/dl (32.0-36.0); MEAN CELL VOLUME 87.9 fl (80-96); MONO % 6.7 % (3.8-10.2); NEUT % 50.2 % (42.8-82.8); PLATELET COUNT 217 10^3/uL (134-434); RBC 4.15 M/mm3 (3.60-5.2); RDW 15.3 % (11.6-15.6); WHITE BLOOD COUNT 5.3 K/mm3 (4.0-10.0)
[2024-05-08 13:54] LABS: HCG,QUALITATIVE URINE Negative
[2024-05-08 13:59] LABS: EPI CELLS 26 /uL (0-25.1); HYALINE CASTS 3 /uL (0-3.1); PH,URINE 5.5 (5.0-8.0); URINE APPEARANCE CLEAR; URINE BACTERIA 350 /uL (0-1359); URINE BILIRUBIN NEGATIVE (NEGATIVE); URINE COLOR YELLOW; URINE GLUCOSE (UA) NEGATIVE (NEGATIVE); URINE KETONE NEGATIVE (NEGATIVE); URINE LEUK ESTERASE 1+ (NEGATIVE); URINE NITRITE NEGATIVE (NEGATIVE); URINE PROTEIN NEGATIVE (NEGATIVE); URINE RBC 11 /uL (0-23.9); URINE WBC 46 /uL (0-25.8)
[2024-05-08] MEDS: SODIUM CHLORIDE 1,000 ML IV STA ×2 (14:04→17:21)
[2024-05-08] MEDS: ACETAMINOPHEN 1000 MG/100 ML BAG IVPB ONE (14:04)
[2024-05-08] MEDS: ONDANSETRON 4 MG/2 ML VIAL IVPUSH ONE (14:05)
[2024-05-08 14:16] LABS: ALBUMIN 3.8 g/dl (3.4-5.0); BLOOD UREA NITROGEN 13.5 mg/dL (7-18); CALCIUM 8.9 mg/dL (8.5-10.1)
[2024-05-08 14:19] LABS: CREATININE 0.8 mg/dL (0.55-1.3)
[2024-05-08 15:09] LABS: HIV INTERPRETATION NEGATIVE (NEGATIVE)
[2024-05-08 16:59] VITALS: BP 140/77; PULSE 63
[2024-05-08 17:00] VITALS: TEMP 98.3
== END 2024-05-08 20:40 | disposition home or self-care (01) ==
LOC: JER 12:33
PROC: 3E033NZ Introduction of Analgesics, Hypnotics, Sedatives into Peripheral Vein, Percutaneous Approach (ICD-10-PCS; principal; 2024-05-08)
PROC: 3E033GC Introduction of Other Therapeutic Substance into Peripheral Vein, Percutaneous Approach (ICD-10-PCS; 2024-05-08)
PROC: 3E0337Z Introduction of Electrolytic and Water Balance Substance into Peripheral Vein, Percutaneous Approach (ICD-10-PCS; 2024-05-08)
PROC: 3E0337Z Introduction of Electrolytic and Water Balance Substance into Peripheral Vein, Percutaneous Approach (ICD-10-PCS; 2024-05-08)
DX: R10.31 Right lower quadrant pain (principal); K80.20 Calculus of gallbladder without cholecystitis without obstruction; R19.7 Diarrhea, unspecified; R11.0 Nausea
CPT/HCPCS: 36415; 74177-TC; 76705-TC; 76856-TC; 80053; 81003; 83690; 84703; 85025; 86803; 87086; 87389; 99285-25; J0131; Q9967

== ENCOUNTER 2024-06-29 04:17 | Day surgery (SDC) | payer OTHER ==
[2024-06-26 16:37] VITALS: BMI 31.3
[2024-06-29] MEDS ORDERED: INDOCYANINE GREEN 25 MG/10 ML VIAL IVPUSH ONE (07:16)
[2024-06-29] MEDS ORDERED: HEPARIN NA (PORCINE) 5,000 UNITS/ML 1ML VIAL ONE (07:16)
[2024-06-29] MEDS ORDERED: BUPIVACAINE HCL/PF 0.25% (2.5MG/ML) 10 ML VIAL ONE (07:16)
[2024-06-29] MEDS ORDERED: ROCURONIUM BROMIDE 50 MG/5 ML SYRINGE ONE (07:44)
[2024-06-29] MEDS ORDERED: PROPOFOL 20 ML ONE (07:44)
[2024-06-29] MEDS ORDERED: MIDAZOLAM HCL 2 MG/2 ML SINGLE DOSE VIAL ONE (07:45)
[2024-06-29] MEDS ORDERED: SUCCINYLCHOLINE CHLORIDE 200 MG/10 ML SYRINGE ONE (08:08)
[2024-06-29] MEDS: cefOXitin SODIUM 2 GM VIAL (RESTRICTED TO ID) IVPB ONE (08:29)
[2024-06-29] MEDS: BUPIVACAINE HCL/PF 0.25% (2.5MG/ML) 10 ML VIAL IJ ONE (08:45)
[2024-06-29] MEDS ORDERED: ACETAMINOPHEN INJECTION 100 ML ONE (09:53)
[2024-06-29] MEDS ORDERED: SUGAMMADEX SODIUM 200 MG/2 ML VIAL ONE (09:53)
[2024-06-29] MEDS ORDERED: HYDROmorphone HCL CARPU-JECT 2 MG/1 ML DISP.SYRIN ONE (11:52)
[2024-06-29] MEDS: HYDROmorphone HCl 2 MG/ML VIAL IVPUSH PRN (11:55)
[2024-06-29] MEDS: LACTATED RINGERS SOLUTION 1,000 ML IV SCH (11:57)
[2024-06-29] MEDS ORDERED: ONDANSETRON 4 MG/2 ML VIAL ONE (13:51)
[2024-06-29] MEDS: ONDANSETRON 4 MG/2 ML VIAL IVPUSH PRN (14:11)
[2024-06-29] MEDS ORDERED: oxyCODONE HCL 5 MG TABLET ONE (14:19)
[2024-06-29] MEDS: oxyCODONE HCL 5 MG TABLET PO PRN (14:22)
[2024-06-29 15:29] VITALS: BP 103/64; PULSE 67; RESP 20; TEMP 97.5
== END 2024-06-29 16:32 | disposition home or self-care (01) ==
LOC: JASU-SURG 04:17
PROVIDERS: ATTEND Surgery
PROC: 8E0W4CZ Robotic Assisted Procedure of Trunk Region, Percutaneous Endoscopic Approach (ICD-10-PCS; 2024-06-29)
PROC: 0FT44ZZ Resection of Gallbladder, Percutaneous Endoscopic Approach (ICD-10-PCS; principal; 2024-06-29 08:00)
DX: K80.10 Calculus of gallbladder with chronic cholecystitis without obstruction (principal)
CPT/HCPCS: 47562; S2900; 81025; 88304-TC; 94760; J0131; J1644

== ENCOUNTER 2024-07-03 08:42 | Emergency (ER) | payer OTHER ==
[2024-07-03 08:48] VITALS: RESP 18; TEMP 98; BMI 31.3
[2024-07-03 10:58] LABS: INR 1.18 (0.83-1.09); PROTHROMBIN TIME (PATIENT) 13.3 SEC (9.7-13.0)
[2024-07-03 11:01] LABS: ACTIVATED PTT 29.6 SECONDS (25.2-36.5)
[2024-07-03 11:08] LABS: BASO % 0.6 % (0-2.0); EOS % 0.9 % (0-4.5); HEMATOCRIT 37.8 % (32.4-45.2); HEMOGLOBIN 12.2 GM/dL (10.7-15.3); LYMPH % 29.6 % (8-40); MCH 28.9 pg (25.7-33.7); MCHC 32.2 g/dl (32.0-36.0); MEAN CELL VOLUME 89.6 fl (80-96); MEAN PLT VOLUME 8.4 fl (7.5-11.1); MONO % 4.9 % (3.8-10.2); PLATELET COUNT 242 10^3/uL (134-434); RBC 4.22 M/mm3 (3.60-5.2); RDW 14.4 % (11.6-15.6); WHITE BLOOD COUNT 5.6 K/mm3 (4.0-10.0)
[2024-07-03 11:16] LABS: POTASSIUM 4.1 mmol/L (3.5-5.1)
[2024-07-03 11:18] LABS: CALCIUM 8.7 mg/dL (8.5-10.1)
[2024-07-03 11:19] LABS: ALBUMIN 3.6 g/dl (3.4-5.0); BLOOD UREA NITROGEN 9.6 mg/dL (7-18)
[2024-07-03 11:22] LABS: CREATININE 0.8 mg/dL (0.55-1.3)
[2024-07-03 11:24] LABS: BILIRUBIN,TOTAL 0.7 mg/dL (0.2-1); TOT PROT 6.6 g/dl (6.4-8.2)
[2024-07-03 11:25] LABS: N-TERMINAL BNP 134.1 pg/ml (5-125)
[2024-07-03 12:41] LABS: HIV INTERPRETATION NEGATIVE (NEGATIVE)
[2024-07-03 12:57] VITALS: BP 132/80; PULSE 64
== END 2024-07-03 13:57 | disposition home or self-care (01) ==
LOC: JER 08:42
DX: R07.2 Precordial pain (principal); R06.02 Shortness of breath; Z90.49 Acquired absence of other specified parts of digestive tract
CPT/HCPCS: 36415; 71275-TC; 80053; 83880; 84484; 84702; 84703; 85025; 85610; 85730; 86803; 86850; 86900; 86901; 87389; 93005; 93010; 99285-25; Q9967

== ENCOUNTER 2024-08-15 00:56 | Emergency (ER) | payer SELFPAY ==
[2024-08-15 01:03] VITALS: RESP 18; BMI 29.7
[2024-08-15 05:50] VITALS: BP 118/75; PULSE 63; TEMP 97.4
== END 2024-08-15 05:51 | disposition home or self-care (01) ==
LOC: JER 00:56
DX: F10.920 Alcohol use, unspecified with intoxication, uncomplicated (principal); Y90.9 Presence of alcohol in blood, level not specified; T48.1X1A Poisoning by skeletal muscle relaxants [neuromuscular blocking agents], accidental (unintentional), initial encounter; R51.9 Headache, unspecified
CPT/HCPCS: 82962; 93005; 93010; 99284-25